=== PATIENT | male | born 1955 | race Caucasian/White ===

== ENCOUNTER 2017-04-05 16:17 | Emergency (ER) | payer MEDICARE, OTHER ==
[~2017-04-05] VITALS: Ht 167.6 cm; Wt 98.0 kg
[~2017-04-05 16:17] MED LIST: AMLODIPINE BESY10 MG PO; ASPIR-LOW81 MG PO; ATORVASTATIN CA80 MG PO; CLOPIDOGREL75 MG PO; FENOFIBRATE134 MG PO; HUMULIN 70100 UNIT/1 SUB-Q; HYDRALAZINE HC100 MG PO; HYDROCHLOROTH12.5 MG PO; LEVOTHYROXINE50 MCG PO; LISINOPRIL40 MG PO; METOPROLOL TAR100 MG PO; QVAR7.3 G1 INH; SPIRONOLACTONE25 MG PO
--- NOTE | 2017-04-05 20:38 | EKG ---
[facility] [address] [place], [place] [address] Signed Sinus rhythm with marked sinus arrhythmia ST \T\ T wave abnormality, consider inferolateral ischemia Abnormal ECG No previous ECGs available Confirmed by JEANNETTE HENRY MD ([id number]) on 04/05/2017 8:38:07 PM Electronically Signed By: JEANNETTE HENRY MD 04/05/17 2038 PATIENT NAME: NAZARIO BROWN BRANDON Electrocardiogram DATE OF : 55 PHYSICIAN: JEANNETTE HENRY MD REPORT #: [id number] REPORT IS CONFIDENTIAL AND NOT TO BE RELEASED WITHOUT AUTHORIZATION
== END 2017-04-05 18:23 | disposition home or self-care (01) ==
LOC: ED 16:17
DX: R53.1 Weakness (principal); I13.0 Hypertensive heart and chronic kidney disease with heart failure and stage 1 through stage 4 chronic kidney disease, or unspecified chronic kidney disease; E11.22 Type 2 diabetes mellitus with diabetic chronic kidney disease; N18.9 Chronic kidney disease, unspecified; I50.9 Heart failure, unspecified; J44.9 Chronic obstructive pulmonary disease, unspecified; F17.200 Nicotine dependence, unspecified, uncomplicated; Z95.5 Presence of coronary angioplasty implant and graft; Z79.899 Other long term (current) drug therapy; Z79.82 Long term (current) 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
CPT/HCPCS: 71020; 80053; 81001; 83880; 84484; 85025; 93005; 93010; 99284

== ENCOUNTER 2017-06-09 12:53 | Emergency (ER) | payer MEDICARE, OTHER ==
[~2017-06-09] VITALS: Ht 167.6 cm; Wt 98.0 kg
[2017-06-09] MEDS ORDERED: ATIVAN1 MG PO (14:29)
--- NOTE | 2017-06-09 21:05 | EKG ---
[facility] [address] [facility] [place] [address] Signed Normal sinus rhythm T wave abnormality, consider inferolateral ischemia , old Abnormal ECG When compared with ECG of 05-APR-2017 16:25, Vent. rate has decreased BY 33 BPM Non-specific change in ST segment in Lateral leads T wave inversion less evident in Lateral leads Confirmed by JEANNETTE HENRY MD ([id number]) on 06/09/2017 9:04:48 PM Electronically Signed By: JEANNETTE HENRY MD 06/09/17 2105 PATIENT NAME: NAZARIO BROWN Electrocardiogram DATE OF : 55 PHYSICIAN: JEANNETTE HENRY MD REPORT #: [id number] REPORT IS CONFIDENTIAL AND NOT TO BE RELEASED WITHOUT AUTHORIZATION
== END 2017-06-09 14:43 | disposition home or self-care (01) ==
LOC: ED 12:53
DX: F43.9 Reaction to severe stress, unspecified (principal); E11.9 Type 2 diabetes mellitus without complications; I11.0 Hypertensive heart disease with heart failure; I50.9 Heart failure, unspecified; J44.9 Chronic obstructive pulmonary disease, unspecified; F17.200 Nicotine dependence, unspecified, uncomplicated; Z95.5 Presence of coronary angioplasty implant and graft; Z79.82 Long term (current) 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; Z79.899 Other long term (current) drug therapy; Z79.4 Long term (current) use of insulin
CPT/HCPCS: 80053; 81001; 84484; 85025; 99284

== ENCOUNTER 2017-06-13 22:30 | Emergency (ER) | payer MEDICARE, OTHER ==
[~2017-06-13] VITALS: Ht 167.6 cm; Wt 105.2 kg
[~2017-06-13 22:30] MED LIST changes: +ATIVAN1 MG PO
== END 2017-06-14 00:28 | disposition home or self-care (01) ==
LOC: ED 22:30
DX: J20.9 Acute bronchitis, unspecified (principal); E11.9 Type 2 diabetes mellitus without complications; I11.0 Hypertensive heart disease with heart failure; I50.9 Heart failure, unspecified; J44.9 Chronic obstructive pulmonary disease, unspecified; J45.909 Unspecified asthma, uncomplicated; F41.9 Anxiety disorder, unspecified; F17.200 Nicotine dependence, unspecified, uncomplicated; Z95.5 Presence of coronary angioplasty implant and graft; Z87.01 Personal history of pneumonia (recurrent); Z79.899 Other long term (current) drug therapy; Z79.82 Long term (current) 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
CPT/HCPCS: 71010; 80053; 83735; 83880; 84484; 85025; 94640; 99284

== ENCOUNTER 2017-08-12 12:00 | Emergency (ER) | payer MEDICARE, OTHER ==
[~2017-08-12] VITALS: Ht 167.6 cm; Wt 102.1 kg
== END 2017-08-12 12:23 | disposition home or self-care (01) ==
LOC: ED 12:00
DX: S99.921A Unspecified injury of right foot, initial encounter (principal); Z00.8 Encounter for other general examination; X58.XXXA Exposure to other specified factors, initial encounter

== ENCOUNTER 2017-08-21 01:13 | Emergency (ER) | payer MEDICARE, OTHER ==
[~2017-08-21] VITALS: Ht 167.6 cm; Wt 102.1 kg
== END 2017-08-21 02:26 | disposition home or self-care (01) ==
LOC: ED 01:13
DX: G47.00 Insomnia, unspecified (principal); I11.0 Hypertensive heart disease with heart failure; I50.9 Heart failure, unspecified; E11.9 Type 2 diabetes mellitus without complications; J44.9 Chronic obstructive pulmonary disease, unspecified; F41.9 Anxiety disorder, unspecified; Z95.818 Presence of other cardiac implants and grafts; Z79.82 Long term (current) 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; Z79.4 Long term (current) use of insulin
CPT/HCPCS: 99282

== ENCOUNTER 2018-03-23 21:54 | Emergency (ER) | payer MEDICARE, OTHER ==
[~2018-03-23] VITALS: Ht 167.6 cm; Wt 102.1 kg
[~2018-03-23 21:54] MED LIST changes: +NOVOLIN 70100 UNIT/1
[2018-03-23] MEDS ORDERED: METFORMIN HCL500 MG PO (22:05)
[2018-03-23] MEDS ORDERED: SERTRALINE HCL50 MG PO (22:06)
[2018-03-23] MEDS ORDERED: COMBIVENT RESPIM4 GM INH (22:07)
== END 2018-03-23 23:10 | disposition home or self-care (01) ==
LOC: ED 21:54
DX: J44.1 Chronic obstructive pulmonary disease with (acute) exacerbation (principal); E11.9 Type 2 diabetes mellitus without complications; I11.0 Hypertensive heart disease with heart failure; I50.9 Heart failure, unspecified; F17.200 Nicotine dependence, unspecified, uncomplicated; Z79.4 Long term (current) use of insulin; Z79.899 Other long term (current) drug therapy; Z79.82 Long term (current) 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
CPT/HCPCS: 71046; 80053; 83880; 84484; 85025; 94640; 96374; 99285; J2930

== ENCOUNTER 2018-09-10 14:36 | Emergency (ER) | payer MEDICARE, OTHER ==
[~2018-09-10] VITALS: Ht 167.6 cm; Wt 104.3 kg
[~2018-09-10 14:36] MED LIST changes: +COMBIVENT RESPIM4 GM INH; +METFORMIN HCL500 MG PO; +SERTRALINE HCL50 MG PO
[2018-09-10] MEDS ORDERED: PREDNISONE20 MG PO (16:27)
[2018-09-10] MEDS ORDERED: IPRAT-ALBUT 0.5-3 ML INH (16:27)
== END 2018-09-10 16:44 | disposition home or self-care (01) ==
LOC: ED 14:36
DX: J44.1 Chronic obstructive pulmonary disease with (acute) exacerbation (principal); E11.9 Type 2 diabetes mellitus without complications; I11.0 Hypertensive heart disease with heart failure; I50.9 Heart failure, unspecified; F41.9 Anxiety disorder, unspecified; F17.210 Nicotine dependence, cigarettes, uncomplicated; Z79.4 Long term (current) use of insulin; Z79.899 Other long term (current) drug therapy; Z79.82 Long term (current) 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
CPT/HCPCS: 71046; 94640; 99283-25; 99406; J7512

== ENCOUNTER → 2019-02-25 | Emergency (ER) | payer MEDICARE, OTHER ==
[~2019-02-25] VITALS: Ht 167.6 cm; Wt 104.3 kg
[~2019-02-25] MED LIST changes: +ADVAIR HFA 115-12 GM INH; +IPRAT-ALBUT 0.5-3 ML INH; +PREDNISONE20 MG PO; +TRELEGY ELLIPT1 EACH IH
--- OUTSIDE RECORDS SUMMARY | 2019-02-25 04:14 | XMS ---
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 Care History Medical/Surgical 03/25/2018 [facility] - Patient is currently established with [facility]. If patient is seen in the ED during business hours. Please contact CHWs at [facility] at Ext [phone]. Care Recommendation: This patient has had 5 or more Emergency Department visits in the last 12 months.\T\nbsp; Patient requires education on the scope and purpose of the ED as an acute care provider not a Primary Care Provider and should not be utilized for chronic conditions.\T\nbsp; If patient returns to ED please contact Community Health WorkerLizzie at [phone]. These are guidelines and the provider should exercise clinical judgment when providing care. E.D. VISIT COUNT ( MO.) 3 [facility] TOTAL 3 NOTE: Visits indicate total known visits. ED/UCC VISIT TRACKING (12 MO.) 02/25/2019 04:12 [facility] TYPE: Emergency COMPLAINT: - WEAKNESS/LOW BLOOD SUGAR 09/10/2018 14:36 [facility] [place] TYPE: Emergency COMPLAINT: - SORE THROAT DIAGNOSES: - Nicotine dependence, unspecified, uncomplicated - Type 2 diabetes mellitus without complications - terminal gauger (current) use of insulin - Anxiety disorder, unspecified - Heart failure, unspecified - Chronic obstructive pulmonary disease with (acute) exacerbation - Hypertensive heart disease with heart failure - Acute pharyngitis, unspecified - Nicotine dependence, cigarettes, uncomplicated - Other care home (current) drug therapy - prison (current) 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 03/23/2018 21:55 [facility] [place] TYPE: Emergency COMPLAINT: - WEAKNESS,COLD SYMPTOMS DIAGNOSES: - terminal gauger (current) use of insulin - Heart failure, unspecified - Hypertensive heart disease with heart failure - prison (current) 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 - Weakness - Nicotine dependence, unspecified, uncomplicated - 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
== END ==
LOC: ED 04:11
DX: E11.649 Type 2 diabetes mellitus with hypoglycemia without coma (principal); I11.0 Hypertensive heart disease with heart failure; I50.9 Heart failure, unspecified; J44.9 Chronic obstructive pulmonary disease, unspecified; F41.9 Anxiety disorder, unspecified; F17.200 Nicotine dependence, unspecified, uncomplicated; Z79.899 Other long term (current) drug therapy; Z79.84 Long term (current) use of oral hypoglycemic drugs; Z79.82 Long term (current) 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
CPT/HCPCS: 80053; 81001; 85025; 96361; 96374; 99284-25; J2405; J7040

== ENCOUNTER 2019-11-08 15:34 | Emergency (ER) | payer MEDICARE, OTHER ==
[~2019-11-08] VITALS: Ht 167.6 cm; Wt 105.2 kg
[2019-11-08] MEDS ORDERED: ALBUTEROL2.5 MG/3 M INH (16:46)
== END 2019-11-08 17:01 | disposition home or self-care (01) ==
LOC: ED 15:34
DX: J98.9 Respiratory disorder, unspecified (principal); E11.9 Type 2 diabetes mellitus without complications; I11.0 Hypertensive heart disease with heart failure; I50.9 Heart failure, unspecified; J44.9 Chronic obstructive pulmonary disease, unspecified; F41.9 Anxiety disorder, unspecified; F17.200 Nicotine dependence, unspecified, uncomplicated
CPT/HCPCS: 71046; 87502; 99283-25

== ENCOUNTER 2020-10-08 12:51 | Emergency (ER) | payer MEDICARE, OTHER ==
[~2020-10-08] VITALS: Ht 167.6 cm; Wt 105.2 kg
[~2020-10-08 12:51] MED LIST changes: +ADULT LOW DOSE81 MG PO; +ALBUTEROL2.5 MG/3 M INH; -ASPIR-LOW81 MG PO
[2020-10-08] MEDS ORDERED: HYDROCHLOROTH12.5 MG PO (13:28)
[2020-10-08] MEDS ORDERED: ATORVASTATIN CA40 MG PO (13:29)
[2020-10-08] MEDS ORDERED: LEVOTHYROXINE75 MCG PO (13:29)
[2020-10-08] MEDS ORDERED: METFORMIN HCL1000 MG PO (13:33)
[2020-10-08] MEDS ORDERED: HYDROCODON-ACE1 EA10 PO (14:04)
== END 2020-10-08 14:28 | disposition home or self-care (01) ==
LOC: ED 12:51
DX: S92.414A Nondisplaced fracture of proximal phalanx of right great toe, initial encounter for closed fracture (principal); W22.8XXA Striking against or struck by other objects, initial encounter; E11.9 Type 2 diabetes mellitus without complications; I11.0 Hypertensive heart disease with heart failure; I50.9 Heart failure, unspecified; J44.9 Chronic obstructive pulmonary disease, unspecified; F17.200 Nicotine dependence, unspecified, uncomplicated; Z79.899 Other long term (current) drug therapy; Z79.84 Long term (current) use of oral hypoglycemic drugs
CPT/HCPCS: 73660; 80053; 84550; 85025; 96372; 99283-25; J1885

== ENCOUNTER 2021-03-15 21:48 | Emergency (ER) | payer MEDICARE, OTHER ==
[~2021-03-15] VITALS: Ht 167.6 cm; Wt 104.3 kg
[~2021-03-15 21:48] MED LIST changes: +ATORVASTATIN CA40 MG PO; +HYDROCODON-ACE1 EA10 PO; +LEVOTHYROXINE75 MCG PO; +METFORMIN HCL1000 MG PO
[2021-03-15] MEDS ORDERED: FAMOTIDINE40 MG PO (22:03)
[2021-03-15] MEDS ORDERED: NOVOLIN 70100 UNIT/1 SUB-Q (22:05)
[2021-03-15] MEDS ORDERED: IPRAT-ALBUT 0.5-3 ML INH (23:49)
[2021-03-15] MEDS ORDERED: PREDNISONE20 MG PO (23:49)
--- NOTE | 2021-03-18 08:48 | EKG ---
[facility] [address] [place] [address] Signed Normal sinus rhythm T wave abnormality, consider lateral ischemia Abnormal ECG When compared with ECG of 09-JUN-2017 13:18, T wave inversion more evident in Lateral leads Confirmed by JEANNETTE HENRY MD ([id number]) on 03/18/2021 8:47:47 AM Electronically Signed By: JEANNETTE HENRY MD 03/18/21 0848 PATIENT NAME: NAZARIO BROWN BRANDON Electrocardiogram DATE OF : 55 PHYSICIAN: JEANNETTE HENRY MD REPORT #: [id number] REPORT IS CONFIDENTIAL AND NOT TO BE RELEASED WITHOUT AUTHORIZATION
== END 2021-03-15 23:57 | disposition home or self-care (01) ==
LOC: ED 21:48
DX: J44.0 Chronic obstructive pulmonary disease with (acute) lower respiratory infection (principal); J20.9 Acute bronchitis, unspecified; I11.0 Hypertensive heart disease with heart failure; I50.9 Heart failure, unspecified; E11.9 Type 2 diabetes mellitus without complications; F17.200 Nicotine dependence, unspecified, uncomplicated; Z79.899 Other long term (current) drug therapy; Z79.4 Long term (current) use of insulin; Z79.82 Long term (current) 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
CPT/HCPCS: 71045; 80053; 83735; 84484; 85025; 93005; 93010; 94640; 96374; 99285-25; J2930

== ENCOUNTER 2021-03-30 15:53 | Emergency (ER) | payer MEDICARE, OTHER ==
[~2021-03-30] VITALS: Ht 167.6 cm; Wt 104.3 kg
[~2021-03-30 15:53] MED LIST changes: +FAMOTIDINE40 MG PO; +NOVOLIN 70100 UNIT/1 SUB-Q
--- OUTSIDE RECORDS SUMMARY | 2021-03-30 16:00 | XMS ---
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 Care History Medical/Surgical 03/25/2018 [facility] - Patient is currently established with [facility]. If patient is seen in the ED during business hours. Please contact CHWs at [facility] at [phone]. Care Recommendation: This patient has had 5 or more Emergency Department visits in the last 12 months.\T\nbsp; Patient requires education on the scope and purpose of the ED as an acute care provider not a Primary Care Provider and should not be utilized for chronic conditions.\T\nbsp; If patient returns to ED please contact Community Health WorkerLizzie at [phone]. These are guidelines and the provider should exercise clinical judgment when providing care. E.D. VISIT COUNT (12 MO.) 3 [facility] TOTAL 3 NOTE: Visits indicate total known visits. 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
[2021-03-30] MEDS ORDERED: PREDNISONE20 MG PO (18:49)
[2021-03-30] MEDS ORDERED: HYDROCODON-ACE1 EA10 PO (18:49)
== END 2021-03-30 19:10 | disposition home or self-care (01) ==
LOC: ED 15:53
DX: M10.9 Gout, unspecified (principal); I10 Essential (primary) hypertension; I50.9 Heart failure, unspecified; E11.9 Type 2 diabetes mellitus without complications; J44.9 Chronic obstructive pulmonary disease, unspecified; F17.200 Nicotine dependence, unspecified, uncomplicated; Z79.899 Other long term (current) drug therapy; Z79.52 Long term (current) use of systemic steroids; Z79.84 Long term (current) use of oral hypoglycemic drugs
CPT/HCPCS: 99283; J7512

== ENCOUNTER 2021-09-20 02:14 | Emergency (ER) | payer MEDICARE, OTHER ==
[~2021-09-20] VITALS: Ht 167.6 cm; Wt 104.3 kg
[2021-09-20] MEDS ORDERED: PREDNISONE20 MG PO (06:34)
--- NOTE | 2021-09-20 22:00 | EKG ---
[facility] [address] [facility] [place] [address] Signed Normal sinus rhythm T wave abnormality, consider lateral ischemia Abnormal ECG When compared with ECG of 15-MAR-2021 22:01, T wave inversion less evident in Lateral leads Confirmed by JOSELITO RODRIGES DO ([id number]) on 09/20/2021 10:00:07 PM Electronically Signed By: JOSELITO RODRIGES DO 09/20/212199 PATIENT NAME: STEPHANIENAZARIO BRANDON Electrocardiogram DATE OF : 55 PHYSICIAN: JOSELITO RODRIGES DO REPORT #: [id number] REPORT IS CONFIDENTIAL AND NOT TO BE RELEASED WITHOUT AUTHORIZATION
== END 2021-09-20 07:13 | disposition home or self-care (01) ==
LOC: ED 02:14
DX: U07.1 COVID-19 (principal); Z23 Encounter for immunization; I11.0 Hypertensive heart disease with heart failure; I50.9 Heart failure, unspecified; E11.9 Type 2 diabetes mellitus without complications; J45.909 Unspecified asthma, uncomplicated; J44.9 Chronic obstructive pulmonary disease, unspecified; F17.200 Nicotine dependence, unspecified, uncomplicated; Z79.899 Other long term (current) drug therapy; Z79.52 Long term (current) use of systemic steroids; Z79.4 Long term (current) use of insulin; Z79.82 Long term (current) 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
CPT/HCPCS: 71045; 80048; 83880; 84484; 85025; 93005; 93010; 94640; 96374; 99285-25; C9803; J1100; M0243; Q0244; U0003

== ENCOUNTER 2022-01-07 01:42 | Emergency (ER) | payer MEDICARE, OTHER ==
[~2022-01-07] VITALS: Ht 167.6 cm; Wt 104.3 kg
[2022-01-07] MEDS ORDERED: ALBUTEROL2.5 MG/3 M INH (03:42)
[2022-01-07] MEDS ORDERED: VENTOLIN HFA18 GM INH (03:42)
[2022-01-07] MEDS ORDERED: PREDNISONE20 MG PO (03:42)
--- NOTE | 2022-01-07 06:24 | EKG ---
[facility] [address] [facility] [facility] [place] [address] Signed Normal sinus rhythm T wave abnormality, consider lateral ischemia Abnormal ECG When compared with ECG of 20-SEP-2021 02:38, T wave inversion more evident in Lateral leads Confirmed by LUIS MIGUEL PINO MD ([id number]) on 01/07/2022 6:24:31 AM Electronically Signed By: LUIS MIGUEL PINO MD 01/07/22 0624 PATIENT NAME: NAZARIO BROWN BRANDON Electrocardiogram DATE OF : 55 PHYSICIAN: LUIS MIGUEL PINO MD REPORT #: [id number] REPORT IS CONFIDENTIAL AND NOT TO BE RELEASED WITHOUT AUTHORIZATION
== END 2022-01-07 03:50 | disposition left against medical advice (07) ==
LOC: ED 01:42
DX: J06.9 Acute upper respiratory infection, unspecified (principal); J44.1 Chronic obstructive pulmonary disease with (acute) exacerbation; E11.9 Type 2 diabetes mellitus without complications; I50.9 Heart failure, unspecified; I11.0 Hypertensive heart disease with heart failure; J45.909 Unspecified asthma, uncomplicated
CPT/HCPCS: 36415; 71045; 80048; 83880; 84484; 85025; 87502; 93005; 93010; 94644; 96374; 99285-25; J2930; U0003

== ENCOUNTER 2022-09-13 11:09 | Emergency (ER) | payer MEDICARE, OTHER ==
[~2022-09-13] VITALS: Ht 167.6 cm; Wt 102.1 kg
[~2022-09-13 11:09] MED LIST changes: +SYMBICORT 80-10.2 GM INH; +VENTOLIN HFA18 GM INH; +ZANTAC-360 (FAM20 MG PO; +ZOLOFT50 MG PO
[2022-09-13] MEDS ORDERED: DOXYCYCLINE HY100 MG PO (14:21)
[2022-09-13] MEDS ORDERED: COLCHICINE0.6 M1 PO (14:21)
== END 2022-09-13 14:50 | disposition home or self-care (01) ==
LOC: ED 11:09
DX: M10.9 Gout, unspecified (principal); E11.9 Type 2 diabetes mellitus without complications; Z95.5 Presence of coronary angioplasty implant and graft; I50.9 Heart failure, unspecified; I11.0 Hypertensive heart disease with heart failure; J44.9 Chronic obstructive pulmonary disease, unspecified; F17.200 Nicotine dependence, unspecified, uncomplicated; Z79.899 Other long term (current) drug therapy; Z79.4 Long term (current) use of insulin; Z79.82 Long term (current) 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
CPT/HCPCS: 36415; 73630; 80053; 85025; 99283-25

== ENCOUNTER 2022-10-11 23:50 | Emergency (ER) | payer MEDICARE, OTHER ==
[~2022-10-11] VITALS: Ht 167.6 cm; Wt 106.7 kg
[~2022-10-11 23:50] MED LIST changes: +COLCHICINE0.6 M1 PO; +DOXYCYCLINE HY100 MG PO
--- OUTSIDE RECORDS SUMMARY | 2022-10-11 23:59 | XMS ---
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 01/07/2022 01:43 - Patient eloped before treatment completed. - Patient with suicidal and/or homicidal ideations eloped. - Patient eloped with IV in place. Details: PATIENT LEFT AMA CRITERIA MET - [facility] - 2 Visits in 30 Days CARE PROVIDERS GILMA HARRISON Internal Medicine 03/31/2021-Current PHONE: Unknown Damian has no Care Guidelines for this patient. Care History Medical/Surgical 03/25/2018 [facility] - Patient is currently established with [facility]. If patient is seen in the ED during business hours. Please contact CHWs at [facility] at Ext [phone]. Care Recommendation: This patient has had 5 or more Emergency Department visits in the last 12 months.\T\nbsp; Patient requires education on the scope and purpose of the ED as an acute care provider not a Primary Care Provider and should not be utilized for chronic conditions.\T\nbsp; If patient returns to ED please contact Community Health WorkerLizzie at [phone]. These are guidelines and the provider should exercise clinical judgment when providing care. E.D. VISIT COUNT (12 MO.) 3 [facility] TOTAL 3 NOTE: Visits indicate total known visits. 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 - Chronic obstructive pulmonary disease, unspecified - Heart failure, unspecified 01/07/2022 01:43 [facility] [place] TYPE: Emergency COMPLAINT: - SHORTNESS OF BREATH DIAGNOSES: - Unspecified asthma, uncomplicated - Acute upper respiratory infection, unspecified - Chronic obstructive pulmonary disease with (acute) exacerbation - Heart failure, unspecified - Type 2 diabetes mellitus without complications - Cough, unspecified - Hypertensive heart disease with heart failure - Contact with and (suspected) exposure to COVID-19 INPATIENT VISIT TRACKING (12 MO.) No inpatient visits to display in this time frame [email or web address]
[2022-10-12] MEDS ORDERED: LASIX20 MG PO (00:24)
[2022-10-12] MEDS ORDERED: IPRAT-ALBUT 0.5-3 ML INH (00:24)
[2022-10-12] MEDS ORDERED: TRAZODONE HCL100 MG PO (00:24)
== END 2022-10-12 00:47 | disposition home or self-care (01) ==
LOC: ED 23:50
DX: G47.00 Insomnia, unspecified (principal); I11.0 Hypertensive heart disease with heart failure; I50.9 Heart failure, unspecified; E11.9 Type 2 diabetes mellitus without complications; J44.9 Chronic obstructive pulmonary disease, unspecified; F17.200 Nicotine dependence, unspecified, uncomplicated; Z79.899 Other long term (current) drug therapy; Z79.4 Long term (current) use of insulin; Z79.82 Long term (current) 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
CPT/HCPCS: 71045; 99283-25

== ENCOUNTER 2023-05-16 12:29 | Emergency (ER) | payer MEDICARE, OTHER ==
[~2023-05-16] VITALS: Ht 167.6 cm; Wt 106.7 kg
--- OUTSIDE RECORDS SUMMARY | ~2023-05-16 | XMS | Continuity of Care Document ---
Demographics + + + | Address | [address] [facility] [address] | | | [place] [address] | + + + | Preferred Language | Unknown | + + + | Marital Status | | + + + | Roman Catholic Affiliation | Unknown | + + + | Race | White | + + + | Ethnic Group | Not or | + + + Author + + + | Author | [facility] | + + + | Organization | [facility] | + + + | Address | [address] | | | [place] [address] | + + + | Phone | | + + + Care Team Providers + + + + | Care Marketing And Outreach Coordinator Name | Role | Phone | + + + + Unavailable | Unavailable | + + + + Unavailable | Unavailable | + + + + Unavailable | Unavailable | + + + + Unavailable | Unavailable | + + + + Unavailable | Unavailable | + + + + Allergies No information. Encounters No information. Functional Status No information. Immunizations + + + + | date | description | facility | + + + + | 2022-09-13 00:00 | No vaccine administered | [facility] | + + + + | 2022-10-12 00:00 | No vaccine administered | [facility] | + + + + Medications + + + + | date | description | facility | + + + + | 2017-06-09 00:00 | LORAZEPAM | [facility] | + + + + | 2017-06-09 00:00 | LORAZEPAM | [facility] | + + + + | 2017-06-09 00:00 | lorazepam 1 MG Oral Tablet | [facility] | | | [Ativan] | | + + + + | 2022-09-13 00:00 | HUM INSULIN NPH/REG | [facility] | | | INSULIN HM | | + + + + | 2022-10-12 00:00 | HUM INSULIN NPH/REG | [facility] | | | INSULIN HM | | + + + + | 2022-09-13 00:00 | insulin isophane, human 70 | [facility] | | | UNT/ML / insulin, regular, | | | | human | | + + + + | 2022-10-12 00:00 | insulin isophane, human 70 | [facility] | | | UNT/ML / insulin, regular, | | | | human | | + + + + | 2022-09-13 00:00 | 120 ACTUAT albuterol 0.1 | [facility] | | | MG/ACTUAT / ipratropium | | | | bromide 0.0 | | + + + + | 2022-10-12 00:00 | 120 ACTUAT albuterol 0.1 | [facility] | | | MG/ACTUAT / ipratropium | | | | bromide 0.0 | | + + + + | 2022-09-13 00:00 | IPRATROPIUM/ALBUTEROL | [facility] | | | SULFATE | | + + + + | 2022-10-12 00:00 | IPRATROPIUM/ALBUTEROL | [facility] | | | SULFATE | | + + + + | 2022-09-13 00:00 | 120 ACTUAT budesonide 0.08 | [facility] | | | MG/ACTUAT / formoterol | | | | fumarate 0 | | + + + + | 2022-10-12 00:00 | 120 ACTUAT budesonide 0.08 | [facility] | | | MG/ACTUAT / formoterol | | | | fumarate 0 | | + + + + | 2022-09-13 00:00 | BUDESONIDE/FORMOTEROL | [facility] | | | FUMARATE | | + + + + | 2022-10-12 00:00 | BUDESONIDE/FORMOTEROL | [facility] | | | FUMARATE | | + + + + | 2018-09-10 00:00 | IPRATROPIUM/ALBUTEROL | [facility] | | | SULFATE | | + + + + | 2018-09-10 00:00 | IPRATROPIUM/ALBUTEROL | [facility] | | | SULFATE | | + + + + | 2022-10-12 00:00 | IPRATROPIUM/ALBUTEROL | [facility] | | | SULFATE | | + + + + | 2018-09-10 00:00 | albuterol 0.833 MG/ML / | [facility] | | | ipratropium bromide 0.167 | | | | MG/ML Inha | | + + + + | 2022-10-12 00:00 | albuterol 0.833 MG/ML / | [facility] | | | ipratropium bromide 0.167 | | | | MG/ML Inha | | + + + + | 2022-09-13 00:00 | COLCHICINE | [facility] | + + + + | 2022-09-13 00:00 | colchicine 0.6 MG Oral | [facility] | | | Capsule | | + + + + | 2022-09-13 00:00 | DOXYCYCLINE HYCLATE | [facility] | + + + + | 2022-09-13 00:00 | doxycycline hyclate 100 MG | [facility] | | | Oral Capsule | | + + + + | 2022-09-13 00:00 | 30 ACTUAT fluticasone | [facility] | | | furoate 0.1 MG/ACTUAT / | | | | umeclidinium 0 | | + + + + | 2022-10-12 00:00 | 30 ACTUAT fluticasone | [facility] | | | furoate 0.1 MG/ACTUAT / | | | | umeclidinium 0 | | + + + + | 2022-09-13 00:00 | | [facility] | | | Fluticasone/Umeclidin/Vilan | | | | ter | | + + + + | 2022-10-12 00:00 | | [facility] | | | Fluticasone/Umeclidin/Vilan | | | | ter | | + + + + | 2022-09-13 00:00 | LISINOPRIL | [facility] | + + + + | 2022-10-12 00:00 | LISINOPRIL | [facility] | + + + + | 2022-09-13 00:00 | lisinopril 40 MG Oral | [facility] | | | Tablet | | + + + + | 2022-10-12 00:00 | lisinopril 40 MG Oral | [facility] | | | Tablet | | + + + + | 2022-10-12 00:00 | FUROSEMIDE | [facility] | + + + + | 2022-10-12 00:00 | furosemide 20 MG Oral | [facility] | | | Tablet [Lasix] | | + + + + | 2022-09-13 00:00 | Insulin NPH Hum/Reg | [facility] | | | Insulin Hm | | + + + + | 2022-10-12 00:00 | Insulin NPH Hum/Reg | [facility] | | | Insulin Hm | | + + + + | 2022-09-13 00:00 | insulin isophane, human 70 | [facility] | | | UNT/ML / insulin, regular, | | | | human | | + + + + | 2022-10-12 00:00 | insulin isophane, human 70 | [facility] | | | UNT/ML / insulin, regular, | | | | human | | + + + + | 2022-09-13 00:00 | ATORVASTATIN CALCIUM | [facility] | + + + + | 2022-10-12 00:00 | ATORVASTATIN CALCIUM | [facility] | + + + + | 2022-09-13 00:00 | atorvastatin 80 MG Oral | [facility] | | | Tablet | | + + + + | 2022-10-12 00:00 | atorvastatin 80 MG Oral | [facility] | | | Tablet | | + + + + | 2022-09-13 00:00 | AMLODIPINE BESYLATE | [facility] | + + + + | 2022-10-12 00:00 | AMLODIPINE BESYLATE | [facility] | + + + + | 2022-09-13 00:00 | amlodipine 10 MG Oral | [facility] | | | Tablet | | + + + + | 2022-10-12 00:00 | amlodipine 10 MG Oral | [facility] | | | Tablet | | + + + + | 2022-09-13 00:00 | ASPIRIN | [facility] | + + + + | 2022-10-12 00:00 | ASPIRIN | [facility] | + + + + | 2022-09-13 00:00 | aspirin 81 MG Delayed | [facility] | | | Release Oral Tablet | | + + + + | 2022-10-12 00:00 | aspirin 81 MG Delayed | [facility] | | | Release Oral Tablet | | + + + + | 2022-09-13 00:00 | CLOPIDOGREL BISULFATE | [facility] | + + + + | 2022-10-12 00:00 | CLOPIDOGREL BISULFATE | [facility] | + + + + | 2022-09-13 00:00 | clopidogrel 75 MG Oral | [facility] | | | Tablet | | + + + + | 2022-10-12 00:00 | clopidogrel 75 MG Oral | [facility] | | | Tablet | | + + + + | 2022-09-13 00:00 | Famotidine | [facility] | + + + + | 2022-10-12 00:00 | Famotidine | [facility] | + + + + | 2022-09-13 00:00 | famotidine 20 MG Oral | [facility] | | | Tablet | | + + + + | 2022-10-12 00:00 | famotidine 20 MG Oral | [facility] | | | Tablet | | + + + + | 2022-09-13 00:00 | FENOFIBRATE,MICRONIZED | [facility] | + + + + | 2022-10-12 00:00 | FENOFIBRATE,MICRONIZED | [facility] | + + + + | 2022-09-13 00:00 | fenofibrate 134 MG Oral | [facility] | | | Capsule | | + + + + | 2022-10-12 00:00 | fenofibrate 134 MG Oral | [facility] | | | Capsule | | + + + + | 2018-09-10 00:00 | predniSONE | [facility] | + + + + | 2018-09-10 00:00 | predniSONE | [facility] | + + + + | 2018-09-10 00:00 | prednisone 20 MG Oral | [facility] | | | Tablet | | + + + + | 2022-09-13 00:00 | SERTRALINE HCL | [facility] | + + + + | 2022-10-12 00:00 | SERTRALINE HCL | [facility] | + + + + | 2022-09-13 00:00 | sertraline 50 MG Oral | [facility] | | | Tablet | | + + + + | 2022-10-12 00:00 | sertraline 50 MG Oral | [facility] | | | Tablet | | + + + + | 2022-09-13 00:00 | HYDROCHLOROTHIAZIDE | [facility] | + + + + | 2022-10-12 00:00 | HYDROCHLOROTHIAZIDE | [facility] | + + + + | 2022-09-13 00:00 | hydrochlorothiazide 12.5 | [facility] | | | MG Oral Tablet | | + + + + | 2022-10-12 00:00 | hydrochlorothiazide 12.5 | [facility] | | | MG Oral Tablet | | + + + + | 2022-09-13 00:00 | ATORVASTATIN CALCIUM | [facility] | + + + + | 2022-10-12 00:00 | ATORVASTATIN CALCIUM | [facility] | + + + + | 2022-09-13 00:00 | atorvastatin 40 MG Oral | [facility] | | | Tablet | | + + + + | 2022-10-12 00:00 | atorvastatin 40 MG Oral | [facility] | | | Tablet | | + + + + | 2022-10-12 00:00 | TRAZODONE HCL | [facility] | + + + + | 2022-10-12 00:00 | trazodone hydrochloride | [facility] | | | 100 MG Oral Tablet | | + + + + | 2020-10-08 00:00 | HYDROCODONE | [facility] | | | BIT/ACETAMINOPHEN | | + + + + | 2020-10-08 00:00 | HYDROCODONE | [facility] | | | BIT/ACETAMINOPHEN | | + + + + | 2021-03-30 00:00 | HYDROCODONE | [facility] | | | BIT/ACETAMINOPHEN | | + + + + | 2021-03-30 00:00 | HYDROCODONE | [facility] | | | BIT/ACETAMINOPHEN | | + + + + | 2020-10-08 00:00 | acetaminophen 325 MG / | [facility] | | | hydrocodone bitartrate 5 MG | | | | Oral Tabl | | + + + + | 2021-03-30 00:00 | acetaminophen 325 MG / | [facility] | | | hydrocodone bitartrate 5 MG | | | | Oral Tabl | | + + + + | 2022-09-13 00:00 | METFORMIN HCL | [facility] | + + + + | 2022-10-12 00:00 | METFORMIN HCL | [facility] | + + + + | 2022-09-13 00:00 | metformin hydrochloride | [facility] | | | 1000 MG Oral Tablet | | + + + + | 2022-10-12 00:00 | metformin hydrochloride | [facility] | | | 1000 MG Oral Tablet | | + + + + | 2022-09-13 00:00 | METOPROLOL TARTRATE | [facility] | + + + + | 2022-10-12 00:00 | METOPROLOL TARTRATE | [facility] | + + + + | 2022-09-13 00:00 | metoprolol tartrate 100 MG | [facility] | | | Oral Tablet | | + + + + | 2022-10-12 00:00 | metoprolol tartrate 100 MG | [facility] | | | Oral Tablet | | + + + + | 2022-09-13 00:00 | 120 ACTUAT fluticasone | [facility] | | | propionate 0.115 MG/ACTUAT | | | | / salmeter | | + + + + | 2022-10-12 00:00 | 120 ACTUAT fluticasone | [facility] | | | propionate 0.115 MG/ACTUAT | | | | / salmeter | | + + + + | 2022-09-13 00:00 | FLUTICASONE/SALMETEROL | [facility] | + + + + | 2022-10-12 00:00 | FLUTICASONE/SALMETEROL | [facility] | + + + + | 2022-09-13 00:00 | HYDRALAZINE HCL | [facility] | + + + + | 2022-10-12 00:00 | HYDRALAZINE HCL | [facility] | + + + + | 2022-09-13 00:00 | hydralazine hydrochloride | [facility] | | | 100 MG Oral Tablet | | + + + + | 2022-10-12 00:00 | hydralazine hydrochloride | [facility] | | | 100 MG Oral Tablet | | + + + + | 2022-09-13 00:00 | LEVOTHYROXINE SODIUM | [facility] | + + + + | 2022-10-12 00:00 | LEVOTHYROXINE SODIUM | [facility] | + + + + | 2022-09-13 00:00 | levothyroxine sodium 0.075 | [facility] | | | MG Oral Tablet | | + + + + | 2022-10-12 00:00 | levothyroxine sodium 0.075 | [facility] | | | MG Oral Tablet | | + + + + | 2022-09-13 00:00 | 100 ACTUAT Beclomethasone | [facility] | | | Dipropionate 0.08 MG/ACTUAT | | | | [facility] | | + + + + | 2022-10-12 00:00 | 100 ACTUAT Beclomethasone | [facility] | | | Dipropionate 0.08 MG/ACTUAT | | | | Metere | | + + + + | 2022-09-13 00:00 | BECLOMETHASONE | [facility] | | | DIPROPIONATE | | + + + + | 2022-10-12 00:00 | BECLOMETHASONE | [facility] | | | DIPROPIONATE | | + + + + Problems + + + + | date | description | facility | + + + + | 2017-01-24 00:00 | Renal insufficiency | [facility] | + + + + | 2017-01-24 00:00 | Diabetes | [facility] | + + + + | 2017-01-24 00:00 | Hyperglycemia | [facility] | + + + + | 2017-01-24 00:00 | Diabetes mellitus | [facility] | + + + + | 2017-01-24 00:00 | Diabetes mellitus | [facility] | + + + + | 2017-01-24 00:00 | Renal insufficiency | [facility] | + + + + | 2017-01-24 00:00 | Renal insufficiency | [facility] | + + + + | 2017-01-24 00:00 | Hyperglycemia | [facility] | + + + + | 2017-01-24 00:00 | Hyperglycemia | [facility] | + + + + | 2017-04-05 00:00 | Weakness | [facility] | + + + + | 2017-04-05 00:00 | Chronic renal | [facility] | | | insufficiency | | + + + + | 2017-04-05 00:00 | Chronic renal impairment | [facility] | + + + + | 2017-04-05 00:00 | Chronic renal impairment | [facility] | + + + + | 2017-04-05 00:00 | Weakness | [facility] | + + + + | 2017-04-05 00:00 | Weakness | [facility] | + + + + | 2017-06-09 00:00 | Stress | [facility] | + + + + | 2017-06-09 00:00 | Stress | [facility] | + + + + | 2017-06-09 00:00 | Stress | [facility] | + + + + | 2017-06-14 00:00 | Acute bronchitis | [facility] | + + + + | 2017-06-14 00:00 | Acute bronchitis | [facility] | + + + + | 2017-06-14 00:00 | Acute bronchitis | [facility] | + + + + | 2017-08-12 00:00 | Encounter for medical | [facility] | | | screening examination | | + + + + | 2017-08-12 00:00 | Encounter for medical | [facility] | | | screening examination | | + + + + | 2017-08-12 00:00 | Encounter for medical | [facility] | | | screening examination | | + + + + | 2017-08-21 00:00 | Insomnia disorder | [facility] | + + + + | 2017-08-21 00:00 | Insomnia | [facility] | + + + + | 2017-08-21 00:00 | Insomnia | [facility] | + + + + | 2018-03-23 00:00 | COPD exacerbation | [facility] | + + + + | 2018-03-23 00:00 | Acute exacerbation of | [facility] | | | chronic obstructive | | | | pulmonary disease | | + + + + | 2018-03-23 00:00 | Acute exacerbation of | [facility] | | | chronic obstructive | | | | pulmonary disease | | + + + + | 2019-02-25 00:00 | Hypoglycemia | [facility] | + + + + | 2019-02-25 00:00 | Hypoglycemia | [facility] | + + + + | 2019-02-25 00:00 | Hypoglycemia | [facility] | + + + + | 2019-11-08 00:00 | Viral respiratory illness | [facility] | + + + + | 2019-11-08 00:00 | Viral respiratory | [facility] | | | infection | | + + + + | 2019-11-08 00:00 | Viral respiratory | [facility] | | | infection | | + + + + | 2020-10-08 00:00 | Fracture of great toe | [facility] | + + + + | 2020-10-08 00:00 | Fracture of phalanx of | [facility] | | | great toe | | + + + + | 2020-10-08 00:00 | Fracture of phalanx of | [facility] | | | great toe | | + + + + | 2021-03-15 00:00 | COPD with acute bronchitis | [facility] | | | | | + + + + | 2021-03-15 00:00 | Acute bronchitis with | [facility] | | | chronic obstructive | | | | pulmonary disease (COPD) | | + + + + | 2021-03-15 00:00 | Acute bronchitis with | [facility] | | | chronic obstructive | | | | pulmonary disease (COPD) | | + + + + | 2021-03-30 00:00 | Acute gout of left foot | [facility] | + + + + | 2021-03-30 00:00 | Acute gout of left foot | [facility] | + + + + | 2021-03-30 00:00 | Acute gout of left foot | [facility] | + + + + | 2021-09-20 00:00 | COVID-19 | [facility] | + + + + | 2021-09-20 00:00 | Infection due to severe | [facility] | | | acute respiratory syndrome | | | | coronavirus 2 (SARS-CoV-2) | | + + + + | 2021-09-20 00:00 | Infection due to severe | [facility] | | | acute respiratory syndrome | | | | coronavirus 2 (SARS-CoV-2) | | + + + + | 2022-01-07 00:00 | Hypoxia | [facility] | + + + + | 2022-01-07 00:00 | URI (upper respiratory | [facility] | | | infection) | | + + + + | 2022-01-07 00:00 | Upper respiratory tract | [facility] | | | infection | | + + + + | 2022-01-07 00:00 | Upper respiratory tract | [facility] | | | infection | | + + + + | 2022-01-07 00:00 | Hypoxia | [facility] | + + + + | 2022-01-07 00:00 | Hypoxia | [facility] | + + + + | 2022-01-07 01:43 | Type 2 diabetes mellitus | [facility] | | | without complications [facility] | + + + + | 2022-01-07 01:43 | Hypertensive heart disease | [facility] | | | with heart failure | [facility] | + + + + | 2022-01-07 01:43 | Heart failure, unspecified | [facility] | | | | [facility] | + + + + | 2022-01-07 01:43 | Acute upper respiratory | [facility] | | | infection, unspecified | [facility] | + + + + | 2022-01-07 01:43 | Chronic obstructive | [facility] | | | pulmonary disease with | [facility] | | | (acute) exacerbation | | + + + + | 2022-01-07 01:43 | Unspecified asthma, | [facility] | | | uncomplicated | [facility] | + + + + | 2022-01-07 01:43 | Cough, unspecified | [facility] | | | [facility] | + + + + | 2022-09-13 00:00 | Gout | [facility] | + + + + | 2022-09-13 00:00 | Gout | [facility] | + + + + | 2022-09-13 00:00 | Gout | [facility] | + + + + | 2022-10-12 00:00 | CHF (congestive heart | [facility] | | | failure) | | + + + + | 2022-10-12 00:00 | Congestive heart failure | [facility] | + + + + Procedures No information. Results/Labs +--------+--------+ +---------+--------+---------+ | test | date | facility | value | unit | notes | +--------+--------+ +---------+--------+---------+ + + | Result panel 1 | + + + + + +--------+ + + | Blood | 2022-09-13 | [facility] | 11.3 | (missing) | (missing) | | leukocytes | 13:00 | [facility] | | | | | automated | | Hospital | | | | | count | | | | | | | (number/volu | | | | | | | me) | | | | | | + + + +--------+ + + + + | Result panel 2 | + + + + + +--------+ + + | Automated | 2022-09-13 | [facility] | 75.4 | (missing) | (missing) | | blood | 13:00 | [facility] | | | | | neutrophil | | Hospital | | | | | count as | | | | | | | percentage | | | | | | | of total | | | | | | | leukocytes | | | | | | + + + +--------+ + + + + | Result panel 3 | + + + + + +--------+ + + | Automated | 2022-09-13 | [facility] | 12.6 | (missing) | (missing) | | blood | 13:00 | [facility] | | | | | lymphocyte | | Hospital | | | | | count as | | | | | | | percentage | | | | | | | ot total | | | | | | | leukocytes | | | | | | + + + +--------+ + + + + | Result panel 4 | + + + + + +--------+ + + | Automated | 2022-09-13 | [facility] | 10.7 | (missing) | (missing) | | blood | 13:00 | [facility] | | | | | monocyte | | Hospital | | | | | count as | | | | | | | percentage | | | | | | | of total | | | | | | | leukocytes | | | | | | + + + +--------+ + + + + | Result panel 5 | + + + + + +-------+ + + | Automated | 2022-09-13 | [facility] | 0.3 | (missing) | (missing) | | blood | 13:00 | [facility] | | | | | eosinophil | | Hospital | | | | | count as | | | | | | | percentage | | | | | | | of total | | | | | | | leukocytes | | | | | | + + + +-------+ + + + + | Result panel 6 | + + + + + +-------+ + + | Automated | 2022-09-13 | [facility] | 1.0 | (missing) | (missing) | | blood | 13:00 | [facility] | | | | | basophil | | Hospital | | | | | count as | | | | | | | percentage | | | | | | | of total | | | | | | | leukocytes | | | | | | + + + +-------+ + + + + | Result panel 7 | + + + + + +------+ + + | Serum or | 2022-09-13 | [facility] | 73 | (missing) | (missing) | | plasma | 13:00 | [facility] | | | | | glucose | | Hospital | | | | | measurement | | | | | | | (mass/volume | | | | | | | ) | | | | | | + + + +------+ + + + + | Result panel 8 | + + + + + +------+ + + | Serum or | 2022-09-13 | [facility] | 22 | (missing) | (missing) | | plasma urea | 13:00 | [facility] | | | | | nitrogen | | Hospital | | | | | measurement | | | | | | | (mass/volume | | | | | | | ) | | | | | | + + + +------+ + + + + | Result panel 9 | + + + + + +--------+ + + | Serum or | 2022-09-13 | [facility] | 1.33 | (missing) | (missing) | | plasma | 13:00 | [facility] | | | | | creatinine | | Hospital | | | | | measurement | | | | | | | (mass/volume | | | | | | | ) | | | | | | + + + +--------+ + + + + | Result panel 10 | + + + + + +------+ + + | Glomerular | 2022-09-13 | [facility] | 59 | (missing) | (missing) | | filtration | 13:00 | [facility] | | | | | rate/1.73 sq | | Hospital | | | | | M.predicted | | | | | | | [Volume | | | | | | | Rate/Area] | | | | | | | inSerum, | | | | | | | Plasma or | | | | | | | Blood by | | | | | | | Creatinine-b | | | | | | | ased formula | | | | | | | (CKD-EPI | | | | | | | 2020) | | | | | | + + + +------+ + + + + | Result panel 11 | + + + + + +---------+ + + | Serum or | 2022-09-13 | [facility] | 16.54 | (missing) | (missing) | | plasma urea | 13:00 | [facility] | | | | | nitrogen/cre | | [facility] | | | | | atinine mass | | | | | | | ratio | | | | | | + + + +---------+ + + + + | Result panel 12 | + + + + + +--------+ + + | Blood | 2022-09-13 | [facility] | 4.83 | (missing) | (missing) | | erythrocytes | 13:00 | [facility] | | | | | automated | | [facility] | | | | | count | | | | | | | (number/volu | | | | | | | me) | | | | | | + + + +--------+ + + + + | Result panel 13 | + + + + + +-------+ + + | Serum or | 2022-09-13 | [facility] | 136 | (missing) | (missing) | | plasma | 13:00 | [facility] sodium [facility] | | | | | measurement | | | | | | | (moles/volum | | | | | | | e) | | | | | | + + + +-------+ + + + + | Result panel 14 | + + + + + +-------+ + + | Serum or | 2022-09-13 | [facility] | 4.4 | (missing) | (missing) | | plasma | 13:00 | [facility] potassium | | [facility] | | | | | measurement | | | | | | | (moles/volum | | | | | | | e) | | | | | | + + + +-------+ + + + + | Result panel 15 | + + + + + +-------+ + + | Serum or | 2022-09-13 | [facility] | 104 | (missing) | (missing) | | plasma | 13:00 | [facility] | | | | chloride | | [facility] | | | | | measurement | | | | | | | (moles/volum | | | | | | | e) | | | | | | + + + +-------+ + + + + | Result panel 16 | + + + + + +------+ + + | Serum or | 2022-09-13 | [facility] | 24 | (missing) | (missing) | | plasma | 13:00 | [facility] | | | | | carbon | | [facility] | | | | | dioxide, | | | | | | | total | | | | | | | measurement | | | | | | | (moles/volum | | | | | | | e) | | | | | | + + + +------+ + + + + | Result panel 17 | + + + + + +--------+ + + | Serum or | 2022-09-13 | [facility] | 12.4 | (missing) | (missing) | | plasma anion | 13:00 | [facility] | | | | gap 4 | | [facility] | | | | + + + +--------+ + + + + | Result panel 18 | + + + + + +-------+ + + | Serum or | 2022-09-13 | [facility] | 9.0 | (missing) | (missing) | | plasma | 13:00 | [facility] | | | | calcium | | [facility] | | | | | measurement | | | | | | | (mass/volume | | | | | | | ) | | | | | | + + + +-------+ + + + + | Result panel 19 | + + + + + +-------+ + + | Serum or | 2022-09-13 | [facility] | 7.6 | (missing) | (missing) | | plasma | 13:00 | [facility] | | | | protein | | [facility] | | | | | measurement | | | | | | | (mass/volume | | | | | | | ) | | | | | | + + + +-------+ + + + + | Result panel 20 | + + + + + +-------+ + + | Serum or | 2022-09-13 | [facility] | 3.4 | (missing) | (missing) | | plasma | 13:00 | [facility] | | | | albumin | | [facility] | | | | | measurement | | | | | | | (mass/volume | | | | | | | ) | | | | | | + + + +-------+ + + + + | Result panel 21 | + + + + + +-------+ + + | Serum | 2022-09-13 | [facility] | 4.2 | (missing) | (missing) | | globulin | 13:00 | [facility] measurement | | [facility] | | | | | (mass/volume | | | | | | | ) | | | | | | + + + +-------+ + + + + | Result panel 22 | + + + + + +--------+ + + | Serum or | 2022-09-13 | [facility] | 0.81 | (missing) | (missing) | | plasma | 13:00 | [facility] | | | | albumin/glob | | [facility] | | | | | ulin mass | | | | | | | ratio | | | | | | + + + +--------+ + + + + | Result panel 23 | + + + + + +--------+ + + | Blood | 2022-09-13 | [facility] | 12.1 | (missing) | (missing) | | hemoglobin | 13:00 | [facility] measurement | | [facility] | | | | | (mass/volume | | | | | | | ) | | | | | | + + + +--------+ + + + + | Result panel 24 | + + + + + +-------+ + + | Serum or | 2022-09-13 | [facility] | 0.4 | (missing) | (missing) | | plasma total | 13:00 | [facility] | | | | bilirubin | | [facility] | | | | | measurement | | | | | | | (mass/volume | | | | | | | ) | | | | | | + + + +-------+ + + + + | Result panel 25 | + + + + + +------+ + + | Serum or | 2022-09-13 | [facility] | 11 | (missing) | (missing) | | plasma | 13:00 | [facility] | | | | | aspartate | | [facility] | | | | | aminotransfe | | | | | | | rase | | | | | | | measurement | | | | | | | (enzymatic | | | | | | | activity/vol | | | | | | | ume) | | | | | | + + + +------+ + + + + | Result panel 26 | + + + + + +------+ + + | Serum or | 2022-09-13 | [facility] | 15 | (missing) | (missing) | | plasma | 13:00 | [facility] | | | | alanine | | [facility] | | | | | aminotransfe | | | | | | | rase | | | | | | | measurement | | | | | | | (enzymatic | | | | | | | activity/vol | | | | | | | ume) | | | | | | + + + +------+ + + + + | Result panel 27 | + + + + + +------+ + + | Serum or | 2022-09-13 | [facility] | 94 | (missing) | (missing) | | plasma | 13:00 | [facility] | | | | alkaline | | [facility] | | | | | phosphatase | | | | | | | measurement | | | | | | | (enzymatic | | | | | | | activity/vol | | | | | | | ume) | | | | | | + + + +------+ + + + + | Result panel 28 | + + + + + +--------+ + + | Automated | 2022-09-13 | [facility] | 38.8 | (missing) | (missing) | | blood | 13:00 | [facility] | | | | hematocrit | | [facility] | | | | + + + +--------+ + + + + | Result panel 29 | + + + + + +--------+ + + | Automated | 2022-09-13 | [facility] | 80.3 | (missing) | (missing) | | erythrocyte | 13:00 | [facility] | | | | mean | | [facility] | | | | | corpuscular | | | | | | | volume | | | | | | + + + +--------+ + + + + | Result panel 30 | + + + + + +--------+ + + | Automated | 2022-09-13 | [facility] | 25.1 | (missing) | (missing) | | erythrocyte | 13:00 | [facility] | | | | mean | | [facility] | | | | | corpuscular | | | | | | | hemoglobin | | | | | | | (mass per | | | | | | | erythrocyte) | | | | | | | | | | | | | + + + +--------+ + + + + | Result panel 31 | + + + + + +--------+ + + | Automated | 2022-09-13 | [facility] | 31.3 | (missing) | (missing) | | erythrocyte | 13:00 | [facility] | | | | mean | | [facility] | | | | | corpuscular | | | | | | | hemoglobin | | | | | | | concentratio | | | | | | | n | | | | | | | measurement | | | | | | | (mass/volume | | | | | | | ) | | | | | | + + + +--------+ + + + + | Result panel 32 | + + + + + +--------+ + + | Automated | 2022-09-13 | [facility] | 16.7 | (missing) | (missing) | | erythrocyte | 13:00 | [facility] | | | | distribution | | [facility] | | | | | width | | | | | | + + + +--------+ + + + + | Result panel 33 | + + + + + +-------+ + + | Automated | 2022-09-13 | [facility] | 217 | (missing) | (missing) | | blood | 13:00 | [facility] | | | | platelet | | [facility] | | | | | count | | | | | | | (count/volum | | | | | | | e) | | | | | | + + + +-------+ + + + + | Result panel 34 | + + + + + +--------+ + + | | 2022-09-13 | [facility] | 11.3 | (missing) | (missing) | | (unavailable | 13:00:08 | [facility] | | | | + + + +--------+ + + + + | Result panel 35 | + + + + + +--------+ + + | | 2022-09-13 | [facility] | 4.83 | (missing) | (missing) | | (unavailable | 13:00:08 | [facility] | | | | + + + +--------+ + + + + | Result panel 36 | + + + + + +--------+ + + | | 2022-09-13 | [facility] | 12.1 | (missing) | (missing) | | (unavailable | 13::08 | [facility] | | | | + + + +--------+ + + + + | Result panel 37 | + + + + + +--------+ + + | | 2022-09-13 | [facility] | 38.8 | (missing) | (missing) | | (unavailable | 13:00:08 | [facility] | | | | + + + +--------+ + + + + | Result panel 38 | + + + + + +--------+ + + | | 2022-09-13 | [facility] | 80.3 | (missing) | (missing) | | (unavailable | 13:00:08 | [facility] | | | | + + + +--------+ + + + + | Result panel 39 | + + + + + +--------+ + + | | 2022-09-13 | [facility] | 25.1 | (missing) | (missing) | | (unavailable | 13:00:08 | [facility] | | | | + + + +--------+ + + + + | Result panel 40 | + + + + + +--------+ + + | | 2022-09-13 | [facility] | 31.3 | (missing) | (missing) | | (unavailable | 13:00:08 | [facility] | | | | + + + +--------+ + + + + | Result panel 41 | + + + + + +--------+ + + | | 2022-09-13 | [facility] | 16.7 | (missing) | (missing) | | (unavailable | 13:00:08 | [facility] | | | | + + + +--------+ + + + + | Result panel 42 | + + + + + +-------+ + + | | 2022-09-13 | [facility] | 217 | (missing) | (missing) | | (unavailable | 13:00:08 | [facility] | | | | + + + +-------+ + + + + | Result panel 43 | + + + + + +--------+ + + | | 2022-09-13 | [facility] | 75.4 | (missing) | (missing) | | (unavailable | 13:00:08 | [facility] | | | | + + + +--------+ + + + + | Result panel 44 | + + + + + +--------+ + + | | 2022-09-13 | [facility] | 12.6 | (missing) | (missing) | | (unavailable | 13:00:08 | [facility] | | | | + + + +--------+ + + + + | Result panel 45 | + + + + + +--------+ + + | | 2022-09-13 | [facility] | 10.7 | (missing) | (missing) | | (unavailable | 13:00:08 | [facility] | | | | + + + +--------+ + + + + | Result panel 46 | + + + + + +-------+ + + | | 2022-09-13 | [facility] | 0.3 | (missing) | (missing) | | (unavailable | 13:00:08 | [facility] | | | | + + + +-------+ + + + + | Result panel 47 | + + + + + +-------+ + + | | 2022-09-13 | [facility] | 1.0 | (missing) | (missing) | | (unavailable | 13:00:08 | [facility] | | | | + + + +-------+ + + + + | Result panel 48 | + + + + + +------+---------+ + | | 2022-09-13 | [facility] | 73 | mg/dL | (missing) | | (unavailable | 13::08 | [facility] | | | | + + + +------+---------+ + + + | Result panel 49 | + + + + + +------+---------+ + | | 2022-09-13 | [facility] | 22 | mg/dL | (missing) | | (unavailable | 13:00:08 | [facility] | | | | + + + +------+---------+ + + + | Result panel 50 | + + + + + +--------+---------+ + | | 2022-09-13 | [facility] | 1.33 | mg/dL | (missing) | | (unavailable | 13:00:08 | [facility] | | | | + + + +--------+---------+ + + + | Result panel 51 | + + + + + +------+ + + | | 2022-09-13 | [facility] | 59 | (missing) | (missing) | | (unavailable | 13:00:08 | [facility] | | | | + + + +------+ + + + + | Result panel 52 | + + + + + +---------+ + + | | 2022-09-13 | [facility] | 16.54 | (missing) | (missing) | | (unavailable | 13:00:08 | [facility] | | | | + + + +---------+ + + + + | Result panel 53 | + + + + + +-------+ + + | | 2022-09-13 | [facility] | 136 | (missing) | (missing) | | (unavailable | 13:00:08 | [facility] | | | | + + + +-------+ + + + + | Result panel 54 | + + + + + +-------+ + + | | 2022-09-13 | [facility] | 4.4 | (missing) | (missing) | | (unavailable | 13:00:08 | [facility] | | | | + + + +-------+ + + + + | Result panel 55 | + + + + + +-------+ + + | | 2022-09-13 | [facility] | 104 | (missing) | (missing) | | (unavailable | 13:00:08 | [facility] | | | | + + + +-------+ + + + + | Result panel 56 | + + + + + +------+ + + | | 2022-09-13 | [facility] | 24 | (missing) | (missing) | | (unavailable | 13:00:08 [facility] | | | | + + + +------+ + + + + | Result panel 57 | + + + + + +--------+ + + | | 2022-09-13 | [facility] | 12.4 | (missing) | (missing) | | (unavailable | 13:00:08 [facility] | | | | + + + +--------+ + + + + | Result panel 58 | + + + + + +-------+---------+ + | | 2022-09-13 | [facility] | 9.0 | mg/dL | (missing) | | (unavailable | 13:00:08 | [facility] | | | | + + + +-------+---------+ + + + | Result panel 59 | + + + + + +-------+ + + | | 2022-09-13 | [facility] | 7.6 | (missing) | (missing) | | (unavailable | 13:00:08 | [facility] | | | | + + + +-------+ + + + + | Result panel 60 | + + + + + +-------+ + + | | 2022-09-13 | [facility] | 3.4 | (missing) | (missing) | | (unavailable | 13:00:08 | [facility] | | | | + + + +-------+ + + + + | Result panel 61 | + + + + + +-------+ + + | | 2022-09-13 | [facility] | 4.2 | (missing) | (missing) | | (unavailable | 13:00:08 [facility] | | | | + + + +-------+ + + + + | Result panel 62 | + + + + + +--------+ + + | | 2022-09-13 | [facility] | 0.81 | (missing) | (missing) | | (unavailable | 13:00:08 [facility] | | | | + + + +--------+ + + + + | Result panel 63 | + + + + + +-------+ + + | | 2022-09-13 | [facility] | 0.4 | (missing) | (missing) | | (unavailable | 13:00:08 | [facility] | | | | + + + +-------+ + + + + | Result panel 64 | + + + + + +------+ + + | | 2022-09-13 | [facility] | 11 | (missing) | (missing) | | (unavailable | 13:00:08 [facility] | | | | + + + +------+ + + + + | Result panel 65 | + + + + + +------+ + + | | 2022-09-13 | [facility] | 15 | (missing) | (missing) | | (unavailable | 13:00:08 [facility] | | | | + + + +------+ + + + + | Result panel 66 | + + + + + +------+ + + | | 2022-09-13 | [facility] | 94 | (missing) | (missing) | | (unavailable | 13:00:08 [facility] | | | | + + + +------+ + + + + | Result panel 67 | + + + + + +--------+ + + | | 2022-09-13 | [facility] | 11.3 | (missing) | (missing) | | (unavailable | 13:00:08 [facility] | | | | + + + +--------+ + + + + | Result panel 68 | + + + + + +--------+ + + | | 2022-09-13 | [facility] | 4.83 | (missing) | (missing) | | (unavailable | 13:00:08 [facility] | | | | + + + +--------+ + + + + | Result panel 69 | + + + + + +--------+ + + | | 2022-09-13 | [facility] | 12.1 | (missing) | (missing) | | (unavailable | 13:00:08 [facility] | | | | + + + +--------+ + + + + | Result panel 70 | + + + + + +--------+ + + | | 2022-09-13 | [facility] | 38.8 | (missing) | (missing) | | (unavailable | 13:00:08 | [facility] | | | | + + + +--------+ + + + + | Result panel 71 | + + + + + +--------+ + + | | 2022-09-13 | [facility] | 80.3 | (missing) | (missing) | | (unavailable | 13:00:08 [facility] | | | | + + + +--------+ + + + + | Result panel 72 | + + + + + +--------+ + + | | 2022-09-13 | [facility] | 25.1 | (missing) | (missing) | | (unavailable | 13:00:08 [facility] | | | | + + + +--------+ + + + + | Result panel 73 | + + + + + +--------+ + + | | 2022-09-13 | [facility] | 31.3 | (missing) | (missing) | | (unavailable | 13:00:08 [facility] | | | | + + + +--------+ + + + + | Result panel 74 | + + + + + +--------+ + + | | 2022-09-13 | [facility] | 16.7 | (missing) | (missing) | | (unavailable | 13:00:08 [facility] | | | | + + + +--------+ + + + + | Result panel 75 | + + + + + +-------+ + + | | 2022-09-13 | [facility] | 217 | (missing) | (missing) | | (unavailable | 13:00:08 | [facility] | | | | + + + +-------+ + + + + | Result panel 76 | + + + + + +--------+ + + | | 2022-09-13 | [facility] | 75.4 | (missing) | (missing) | | (unavailable | 13:00:08 [facility] | | | | + + + +--------+ + + + + | Result panel 77 | + + + + + +--------+ + + | | 2022-09-13 | [facility] | 12.6 | (missing) | (missing) | | (unavailable | 13::08 | [facility] | | | | + + + +--------+ + + + + | Result panel 78 | + + + + + +--------+ + + | | 2022-09-13 | [facility] | 10.7 | (missing) | (missing) | | (unavailable | 13:00:08 [facility] | | | | + + + +--------+ + + + + | Result panel 79 | + + + + + +-------+ + + | | 2022-09-13 | [facility] | 0.3 | (missing) | (missing) | | (unavailable | 13::08 | [facility] | | | | + + + +-------+ + + + + | Result panel 80 | + + + + + +-------+ + + | | 2022-09-13 | [facility] | 1.0 | (missing) | (missing) | | (unavailable | ::08 | [facility] | | | | + + + +-------+ + + + + | Result panel 81 | + + + + + +------+---------+ + | | 2022-09-13 | [facility] | 73 | mg/dL | (missing) | | (unavailable | 13:00:08 | [facility] | | | | + + + +------+---------+ + + + | Result panel 82 | + + + + + +------+---------+ + | | 2022-09-13 | [facility] | 22 | mg/dL | (missing) | | (unavailable | 13:00:08 | [facility] | | | | + + + +------+---------+ + + + | Result panel 83 | + + + + + +--------+---------+ + | | 2022-09-13 | [facility] | 1.33 | mg/dL | (missing) | | (unavailable | 13::08 | [facility] | | | | + + + +--------+---------+ + + + | Result panel 84 | + + + + + +------+ + + | | 2022-09-13 | [facility] | 59 | (missing) | (missing) | | (unavailable | 13::08 | [facility] | | | | + + + +------+ + + + + | Result panel 85 | + + + + + +---------+ + + | | 2022-09-13 | [facility] | 16.54 | (missing) | (missing) | | (unavailable | 13::08 | [facility] | | | | + + + +---------+ + + + + | Result panel 86 | + + + + + +-------+ + + | | 2022-09-13 | [facility] | 136 | (missing) | (missing) | | (unavailable | 13::08 | [facility] | | | | + + + +-------+ + + + + | Result panel 87 | + + + + + +-------+ + + | | 2022-09-13 | [facility] | 4.4 | (missing) | (missing) | | (unavailable | 13::08 | [facility] | | | | + + + +-------+ + + + + | Result panel 88 | + + + + + +-------+ + + | | 2022-09-13 | [facility] | 104 | (missing) | (missing) | | (unavailable | 13::08 | [facility] | | | | + + + +-------+ + + + + | Result panel 89 | + + + + + +------+ + + | | 2022-09-13 | [facility] | 24 | (missing) | (missing) | | (unavailable | 13:00:08 | [facility] | | | | + + + +------+ + + + + | Result panel 90 | + + + + + +--------+ + + | | 2022-09-13 | [facility] | 12.4 | (missing) | (missing) | | (unavailable | 13:00:08 | [facility] | | | | + + + +--------+ + + + + | Result panel 91 | + + + + + +-------+---------+ + | | 2022-09-13 | [facility] | 9.0 | mg/dL | (missing) | | (unavailable | 13:00:08 | [facility] | | | | + + + +-------+---------+ + + + | Result panel 92 | + + + + + +-------+ + + | | 2022-09-13 | [facility] | 7.6 | (missing) | (missing) | | (unavailable | 13:00:08 | [facility] | | | | + + + +-------+ + + + + | Result panel 93 | + + + + + +-------+ + + | | 2022-09-13 | [facility] | 3.4 | (missing) | (missing) | | (unavailable | 13:00:08 | [facility] | | | | + + + +-------+ + + + + | Result panel 94 | + + + + + +-------+ + + | | 2022-09-13 | [facility] | 4.2 | (missing) | (missing) | | (unavailable | 13:00:08 [facility] | | | | + + + +-------+ + + + + | Result panel 95 | + + + + + +--------+ + + | | 2022-09-13 | [facility] | 0.81 | (missing) | (missing) | | (unavailable | 13:00:08 | [facility] | | | | + + + +--------+ + + + + | Result panel 96 | + + + + + +-------+ + + | | 2022-09-13 | [facility] | 0.4 | (missing) | (missing) | | (unavailable | 13:00:08 | [facility] | | | | + + + +-------+ + + + + | Result panel 97 | + + + + + +------+ + + | | 2022-09-13 | [facility] | 11 | (missing) | (missing) | | (unavailable | 13:00:08 [facility] | | | | + + + +------+ + + + + | Result panel 98 | + + + + + +------+ + + | | 2022-09-13 | [facility] | 15 | (missing) | (missing) | | (unavailable | 13:00:08 | [facility] | | | | + + + +------+ + + + + | Result panel 99 | + + + + + +------+ + + | | 2022-09-13 | [facility] | 94 | (missing) | (missing) | | (unavailable | 13:00:08 | [facility] | | | | + + + +------+ + + + + | Serum or plasma alanine aminotransferase measurement (enzymatic activity/volume) | + + + + + +------+ + + | Serum or | 2022-09-13 | [facility] | 15 | (missing) | (missing) | | plasma | 13:00 | [facility] | | | | alanine | | [facility] | | | | | aminotransfe | | | | | | | rase | | | | | | | measurement | | | | | | | (enzymatic | | | | | | | activity/vol | | | | | | | ume) | | | | | | + + + +------+ + + + + | Serum or plasma albumin measurement (mass/volume) | + + + + + +-------+ + + | Serum or | 2022-09-13 | [facility] | 3.4 | (missing) | (missing) | | plasma | 13:00 | [facility] | | | | albumin | | [facility] | | | | | measurement | | | | | | | (mass/volume | | | | | | | ) | | | | | | + + + +-------+ + + + + | Serum or plasma albumin/globulin mass ratio | + + + + + +--------+ + + | Serum or | 2022-09-13 | [facility] | 0.81 | (missing) | (missing) | | plasma | 13:00 | [facility] | | | | albumin/glob | | [facility] | | | | | ulin mass | | | | | | | ratio | | | | | | + + + +--------+ + + + + | Serum or plasma calcium measurement (mass/volume) | + + + + + +-------+ + + | Serum or | 2022-09-13 | [facility] | 9.0 | (missing) | (missing) | | plasma | 13:00 | [facility] | | | | calcium | | [facility] | | | | | measurement | | | | | | | (mass/volume | | | | | | | ) | | | | | | + + + +-------+ + + + + | Serum or plasma anion gap 4 | + + + + + +--------+ + + | Serum or | 2022-09-13 | [facility] | 12.4 | (missing) | (missing) | | plasma anion | 13:00 | [facility] | | | | gap 4 | | [facility] | | | | + + + +--------+ + + + + | Serum or plasma aspartate aminotransferase measurement (enzymatic activity/volume) | + + + + + +------+ + + | Serum or | 2022-09-13 | [facility] | 11 | (missing) | (missing) | | plasma | 13:00 | [facility] | | | | aspartate | | [facility] | | | | | aminotransfe | | | | | | | rase | | | | | | | measurement | | | | | | | (enzymatic | | | | | | | activity/vol | | | | | | | ume) | | | | | | + + + +------+ + + + + | Serum or plasma total bilirubin measurement (mass/volume) | + + + + + +-------+ + + | Serum or | 2022-09-13 | [facility] | 0.4 | (missing) | (missing) | | plasma total | 13:00 | [facility] | | | | bilirubin | | [facility] | | | | | measurement | | | | | | | (mass/volume | | | | | | | ) | | | | | | + + + +-------+ + + + + | Serum or plasma carbon dioxide, total measurement (moles/volume) | + + + + + +------+ + + | Serum or | 2022-09-13 | [facility] | 24 | (missing) | (missing) | | plasma | 13:00 | [facility] | | | | | carbon | | [facility] | | | | | dioxide, | | | | | | | total | | | | | | | measurement | | | | | | | (moles/volum | | | | | | | e) | | | | | | + + + +------+ + + + + | Serum or plasma chloride measurement (moles/volume) | + + + + + +-------+ + + | Serum or | 2022-09-13 | [facility] | 104 | (missing) | (missing) | | plasma | 13:00 | [facility] | | | | | chloride | | [facility] | | | | | measurement | | | | | | | (moles/volum | | | | | | | e) | | | | | | + + + +-------+ + + + + | Automated erythrocyte distribution width | + + + + + +--------+ + + | Automated | 2022-09-13 | [facility] | 16.7 | (missing) | (missing) | | erythrocyte | 13:00 | [facility] | | | | | distribution | | [facility] | | | | | width | | | | | | + + + +--------+ + + + + | Serum or plasma creatinine measurement (mass/volume) | + + + + + +--------+ + + | Serum or | 2022-09-13 | [facility] | 1.33 | (missing) | (missing) | | plasma | 13:00 | [facility] | | | | | creatinine | | [facility] | | | | | measurement | | | | | | | (mass/volume | | | | | | | ) | | | | | | + + + +--------+ + + + + | Serum globulin measurement (mass/volume) | + + + + + +-------+ + + | Serum | 2022-09-13 | [facility] | 4.2 | (missing) | (missing) | | globulin | 13:00 | [facility] | | | | measurement | | [facility] | | | | | (mass/volume | | | | | | | ) | | | | | | + + + +-------+ + + + + | Serum or plasma glucose measurement (mass/volume) | + + + + + +------+ + + | Serum or | 2022-09-13 | [facility] | 73 | (missing) | (missing) | | plasma | 13:00 | [facility] | | | | | glucose | | [facility] | | | | | measurement | | | | | | | (mass/volume | | | | | | | ) | | | | | | + + + +------+ + + + + | Serum or plasma potassium measurement (moles/volume) | + + + + + +-------+ + + | Serum or | 2022-09-13 | [facility] | 4.4 | (missing) | (missing) | | plasma | 13:00 | [facility] | | | | | potassium | | [facility] | | | | | measurement | | | | | | | (moles/volum | | | | | | | e) | | | | | | + + + +-------+ + + + + | Serum or plasma protein measurement (mass/volume) | + + + + + +-------+ + + | Serum or | 2022-09-13 | [facility] | 7.6 | (missing) | (missing) | | plasma | 13:00 | [facility] | | | | | protein | | [facility] | | | | | measurement | | | | | | | (mass/volume | | | | | | | ) | | | | | | + + + +-------+ + + + + | Serum or plasma sodium measurement (moles/volume) | + + + + + +-------+ + + | Serum or | 2022-09-13 | [facility] | 136 | (missing) | (missing) | | plasma | 13:00 | [facility] | | | | | sodium | | [facility] | | | | | measurement | | | | | | | (moles/volum | | | | | | | e) | | | | | | + + + +-------+ + + + + | Serum or plasma urea nitrogen measurement (mass/volume) | + + + + + +------+ + + | Serum or | 2022-09-13 | [facility] | 22 | (missing) | (missing) | | plasma urea | 13:00 | [facility] | | | | | nitrogen | | [facility] | | | | | measurement | | | | | | | (mass/volume | | | | | | | ) | | | | | | + + + +------+ + + + + | Serum or plasma urea nitrogen/creatinine mass ratio | + + + + + +---------+ + + | Serum or | 2022-09-13 | [facility] | 16.54 | (missing) | (missing) | | plasma urea | 13:00 | [facility] | | | | | nitrogen/cre | | Hospital | | | | | atinine mass | | | | | | | ratio | | | | | | + + + +---------+ + + + + | Automated blood monocyte count as percentage of total leukocytes | + + + + + +--------+ + + | Automated | 2022-09-13 | [facility] | 10.7 | (missing) | (missing) | | blood | 13:00 | [facility] | | | | [facility] | | | | | count as | | | | | | | percentage | | | | | | | of total | | | | | | | leukocytes | | | | | | + + + +--------+ + + + + | Blood leukocytes automated count (number/volume) | + + + + + +--------+ + + | Blood | 2022-09-13 | [facility] | 11.3 | (missing) | (missing) | | leukocytes | 13:00 | [facility] | | | | automated | | [facility] | | | | | count | | | | | | | (number/volu | | | | | | | me) | | | | | | + + + +--------+ + + + + | Serum or plasma alkaline phosphatase measurement (enzymatic activity/volume) | + + + + + +------+ + + | Serum or | 2022-09-13 | [facility] | 94 | (missing) | (missing) | | plasma | 13:00 | [facility] | | | | alkaline | | [facility] | | | | | phosphatase | | | | | | | measurement | | | | | | | (enzymatic | | | | | | | activity/vol | | | | | | | ume) | | | | | | + + + +------+ + + + + | Automated blood basophil count as percentage of total leukocytes | + + + + + +-------+ + + | Automated | 2022-09-13 | [facility] | 1.0 | (missing) | (missing) | | blood | 13:00 | [facility] | | | | basophil | | [facility] | | | | | count as | | | | | | | percentage | | | | | | | of total | | | | | | | leukocytes | | | | | | + + + +-------+ + + + + | Automated blood eosinophil count as percentage of total leukocytes | + + + + + +-------+ + + | Automated | 2022-09-13 | [facility] | 0.3 | (missing) | (missing) | | blood | 13:00 | [facility] | | | | | eosinophil | | [facility] | | | | | count as | | | | | | | percentage | | | | | | | of total | | | | | | | leukocytes | | | | | | + + + +-------+ + + + + | Blood hemoglobin measurement (mass/volume) | + + + + + +--------+ + + | Blood | 2022-09-13 | [facility] | 12.1 | (missing) | (missing) | | hemoglobin | 13:00 | [facility] | | | | | measurement | | [facility] | | | | | (mass/volume | | | | | | | ) | | | | | | + + + +--------+ + + + + | Automated blood hematocrit | + + + + + +--------+ + + | Automated | 2022-09-13 | [facility] | 38.8 | (missing) | (missing) | | blood | 13:00 | [facility] | | | | hematocrit | | [facility] | | | | + + + +--------+ + + + + | Automated blood lymphocyte count as percentage ot total leukocytes | + + + + + +--------+ + + | Automated | 2022-09-13 | [facility] | 12.6 | (missing) | (missing) | | blood | 13:00 | [facility] | | | | | lymphocyte | | [facility] | | | | | count as | | | | | | | percentage | | | | | | | ot total | | | | | | | leukocytes | | | | | | + + + +--------+ + + + + | Automated blood neutrophil count as percentage of total leukocytes | + + + + + +--------+ + + | Automated | 2022-09-13 | [facility] | 75.4 | (missing) | (missing) | | blood | 13:00 | [facility] | | | | neutrophil | | [facility] | | | | | count as | | | | | | | percentage | | | | | | | of total | | | | | | | leukocytes | | | | | | + + + +--------+ + + + + | Automated blood platelet count (count/volume) | + + + + + +-------+ + + | Automated | 2022-09-13 | [facility] | 217 | (missing) | (missing) | | blood | 13:00 | [facility] | | | | platelet | | [facility] | | | | | count | | | | | | | (count/volum | | | | | | | e) | | | | | | + + + +-------+ + + + + | Automated erythrocyte mean corpuscular hemoglobin (mass per erythrocyte) | + + + + + +--------+ + + | Automated | 2022-09-13 | [facility] | 25.1 | (missing) | (missing) | | erythrocyte | 13:00 | [facility] | | | | | mean | | [facility] | | | | | corpuscular | | | | | | | hemoglobin | | | | | | | (mass per | | | | | | | erythrocyte) | | | | | | | | | | | | | + + + +--------+ + + + + | Automated erythrocyte mean corpuscular hemoglobin concentration measurement | | (mass/volume) | + + + + + +--------+ + + | Automated | 2022-09-13 | [facility] | 31.3 | (missing) | (missing) | | erythrocyte | 13:00 | [facility] | | | | | mean | | [facility] | | | | | corpuscular | | | | | | | hemoglobin | | | | | | | concentratio | | | | | | | n | | | | | | | measurement | | | | | | | (mass/volume | | | | | | | ) | | | | | | + + + +--------+ + + + + | Automated erythrocyte mean corpuscular volume | + + + + + +--------+ + + | Automated | 2022-09-13 | [facility] | 80.3 | (missing) | (missing) | | erythrocyte | 13:00 | [facility] | | | | mean | | [facility] | | | | | corpuscular | | | | | | | volume | | | | | | + + + +--------+ + + + + | Blood erythrocytes automated count (number/volume) | + + + + + +--------+ + + | Blood | 2022-09-13 | [facility] | 4.83 | (missing) | (missing) | | erythrocytes | 13:00 | [facility] | | | | automated | | [facility] | | | | | count | | | | | | | (number/volu | | | | | | | me) | | | | | | + + + +--------+ + + + + | Glomerular filtration rate/1.73 sq M.predicted [Volume Rate/Area] inSerum, Plasma or | | Blood by Creatinine-based formula (CKD-EPI 2020) | + + + + + +------+ + + | Glomerular | 2022-09-13 | [facility] | 59 | (missing) | (missing) | | filtration | 13:00 | [facility] | | | | | rate/1.73 sq | | Hospital | | | | | M.predicted | | | | | | | [Volume | | | | | | | Rate/Area] | | | | | | | inSerum, | | | | | | | Plasma or | | | | | | | Blood by | | | | | | | Creatinine-b | | | | | | | ased formula | | | | | | | (CKD-EPI | | | | | | | 2020) | | | | | | + + + +------+ + + Social History + + + + | date | description | facility | + + + + | 2022-09-13 00:00 | Current every day smoker | [facility] | + + + + | 2022-10-12 00:00 | Current every day smoker | [facility] | + + + + Vital Signs + + + +---------+ | date | measurement | value | units | + + + +---------+ | 2022-09-13 00:00 | BMI | 36.3 | kg/m2 | + + + +---------+ | 2022-09-13 00:00 | BP_diastolic | 62 | mmHg | + + + +---------+ | 2022-09-13 00:00 | BP_systolic | 127 | mmHg | + + + +---------+ | 2022-09-13 00:00 | heart_rate | 78 | /min | + + + +---------+ | 2022-09-13 00:00 | height_metric | 167.64 | cm | + + + +---------+ | 2022-09-13 00:00 | height_standard | 66 | in | + + + +---------+ | 2022-09-13 00:00 | o2_saturation | 98 | % | + + + +---------+ | 2022-09-13 00:00 | respiration_rate | 16 | /min | + + + +---------+ | 2022-09-13 00:00 | temperature_metric | 36.78 | C | | | | | | + + + +---------+ | 2022-09-13 00:00 | | 98.2 | F | | | temperature_standar | | | | | d | | | + + + +---------+ | 2022-09-13 00:00 | weight_metric | 102.06 | kg | + + + +---------+ | 2022-09-13 00:00 | weight_standard | 225 | lb | + + + +---------+ | 2022-10-12 00:00 | BMI | 38.0 | kg/m2 | + + + +---------+ | 2022-10-12 00:00 | BP_diastolic | 76 | mmHg | + + + +---------+ | 2022-10-12 00:00 | BP_systolic | 154 | mmHg | + + + +---------+ | 2022-10-12 00:00 | heart_rate | 79 | /min | + + + +---------+ | 2022-10-12 00:00 | height_metric | 167.64 | cm | + + + +---------+ | 2022-10-12 00:00 | height_standard | 66 | in | + + + +---------+ | 2022-10-12 00:00 | o2_saturation | 97 | % | + + + +---------+ | 2022-10-12 00:00 | respiration_rate | 22 | /min | + + + +---------+ | 2022-10-12 00:00 | temperature_metric | 36.56 | C | | | | | | + + + +---------+ | 2022-10-12 00:00 | | 97.8 | F | | | temperature_standar | | | | | d | | | + + + +---------+ | 2022-10-12 00:00 | weight_metric | 106.7 | kg | + + + +---------+ | 2022-10-12 00:00 | weight_standard | 235.23 | lb | + + + +---------+"
--- OUTSIDE RECORDS SUMMARY | ~2023-05-16 | XMS | Continuity of Care Document ---
Demographics + + + | Address | [address] [facility] [address] | | | [place] [address] | + + + | Preferred Language | Unknown | + + + | Marital Status | | + + + | Congregation Affiliation | Unknown | + + + | Race | White | + + + | Ethnic Group | Not or | + + + Author + + + | Author | [facility] | + + + | Organization | [facility] | + + + | Address | [address] | | | [place] [address] | + + + | Phone | | + + + Care Team Providers + + + + | Care Showroom Executive Director Name | Role | Phone | + [...] 2022-09-13 00:00 | No vaccine administered | [facility] | + + + + | 2022-10-12 00:00 | No vaccine administered | [facility] | + + + + Medications + + + + | date | description | facility | + + + + | 2017-06-09 00:00 | LORAZEPAM | [facility] | + + + + | 2017-06-09 00:00 | LORAZEPAM | [facility] | + + + + | 2017-06-09 00:00 | lorazepam 1 MG Oral Tablet | [facility] | | | [Ativan] | | + + + + | 2022-09-13 00:00 | HUM INSULIN NPH/REG | [facility] | | | INSULIN HM | | + + + + | 2022-10-12 00:00 | HUM INSULIN NPH/REG | [facility] | | | INSULIN HM | | + + + + | 2022-09-13 00:00 | insulin isophane, human 70 | [facility] | | | UNT/ML / insulin, regular, | | | | human | | + + + + | 2022-10-12 00:00 | insulin isophane, human 70 | [facility] | | | UNT/ML / insulin, regular, | | | | human | | + + + + | 2022-09-13 00:00 | 120 ACTUAT albuterol 0.1 | [facility] | | | MG/ACTUAT / ipratropium | | | | bromide 0.0 | | + + + + | 2022-10-12 00:00 | 120 ACTUAT albuterol 0.1 | [facility] | | | MG/ACTUAT / ipratropium | | | | bromide 0.0 | | + + + + | 2022-09-13 00:00 | IPRATROPIUM/ALBUTEROL | [facility] | | | SULFATE | | + + + + | 2022-10-12 00:00 | IPRATROPIUM/ALBUTEROL | [facility] | | | SULFATE | | + + + + | 2022-09-13 00:00 | 120 ACTUAT budesonide 0.08 | [facility] | | | MG/ACTUAT / formoterol | | | | fumarate 0 | | + + + + | 2022-10-12 00:00 | 120 ACTUAT budesonide 0.08 | [facility] | | | MG/ACTUAT / formoterol | | | | fumarate 0 | | + + + + | 2022-09-13 00:00 | BUDESONIDE/FORMOTEROL | [facility] | | | FUMARATE | | + + + + | 2022-10-12 00:00 | BUDESONIDE/FORMOTEROL | [facility] | | | FUMARATE | | + + + + | 2018-09-10 00:00 | IPRATROPIUM/ALBUTEROL | [facility] | | | SULFATE | | + + + + | 2018-09-10 00:00 | IPRATROPIUM/ALBUTEROL | [facility] | | | SULFATE | | + + + + | 2022-10-12 00:00 | IPRATROPIUM/ALBUTEROL | [facility] | | | SULFATE | | + + + + | 2018-09-10 00:00 | albuterol 0.833 MG/ML / | [facility] | | | ipratropium bromide 0.167 | | | | MG/ML Inha | | + + + + | 2022-10-12 00:00 | albuterol 0.833 MG/ML / | [facility] | | | ipratropium bromide 0.167 | | | | MG/ML Inha | | + + + + | 2022-09-13 00:00 | COLCHICINE | [facility] | + + + + | 2022-09-13 00:00 | colchicine 0.6 MG Oral | [facility] | | | Capsule | | + + + + | 2022-09-13 00:00 | DOXYCYCLINE HYCLATE | [facility] | + + + + | 2022-09-13 00:00 | doxycycline hyclate 100 MG | [facility] | | | Oral Capsule | | + + + + | 2022-09-13 00:00 | 30 ACTUAT fluticasone | [facility] | | | furoate 0.1 MG/ACTUAT / | | | | umeclidinium 0 | | + + + + | 2022-10-12 00:00 | 30 ACTUAT fluticasone | [facility] | | | furoate 0.1 MG/ACTUAT / | | | | umeclidinium 0 | | + + + + | 2022-09-13 00:00 | | [facility] | | | Fluticasone/Umeclidin/Vilan | | | | ter | | + + + + | 2022-10-12 00:00 | | [facility] | | | Fluticasone/Umeclidin/Vilan | | | | ter | | + + + + | 2022-09-13 00:00 | LISINOPRIL | [facility] | + + + + | 2022-10-12 00:00 | LISINOPRIL | [facility] | + + + + | 2022-09-13 00:00 | lisinopril 40 MG Oral | [facility] | | | Tablet | | + + + + | 2022-10-12 00:00 | lisinopril 40 MG Oral | [facility] | | | Tablet | | + + + + | 2022-10-12 00:00 | FUROSEMIDE | [facility] | + + + + | 2022-10-12 00:00 | furosemide 20 MG Oral | [facility] | | | Tablet [Lasix] | | + + + + | 2022-09-13 00:00 | Insulin NPH Hum/Reg | [facility] | | | Insulin Hm | | + + + + | 2022-10-12 00:00 | Insulin NPH Hum/Reg | [facility] | | | Insulin Hm | | + + + + | 2022-09-13 00:00 | insulin isophane, human 70 | [facility] | | | UNT/ML / insulin, regular, | | | | human | | + + + + | 2022-10-12 00:00 | insulin isophane, human 70 | [facility] | | | UNT/ML / insulin, regular, | | | | human | | + + + + | 2022-09-13 00:00 | ATORVASTATIN CALCIUM | [facility] | + + + + | 2022-10-12 00:00 | ATORVASTATIN CALCIUM | [facility] | + + + + | 2022-09-13 00:00 | atorvastatin 80 MG Oral | [facility] | | | Tablet | | + + + + | 2022-10-12 00:00 | atorvastatin 80 MG Oral | [facility] | | | Tablet | | + + + + | 2022-09-13 00:00 | AMLODIPINE BESYLATE | [facility] | + + + + | 2022-10-12 00:00 | AMLODIPINE BESYLATE | [facility] | + + + + | 2022-09-13 00:00 | amlodipine 10 MG Oral | [facility] | | | Tablet | | + + + + | 2022-10-12 00:00 | amlodipine 10 MG Oral | [facility] | | | Tablet | | + + + + | 2022-09-13 00:00 | ASPIRIN | [facility] | + + + + | 2022-10-12 00:00 | ASPIRIN | [facility] | + + + + | 2022-09-13 00:00 | aspirin 81 MG Delayed | [facility] | | | Release Oral Tablet | | + + + + | 2022-10-12 00:00 | aspirin 81 MG Delayed | [facility] | | | Release Oral Tablet | | + + + + | 2022-09-13 00:00 | CLOPIDOGREL BISULFATE | [facility] | + + + + | 2022-10-12 00:00 | CLOPIDOGREL BISULFATE | [facility] | + + + + | 2022-09-13 00:00 | clopidogrel 75 MG Oral | [facility] | | | Tablet | | + + + + | 2022-10-12 00:00 | clopidogrel 75 MG Oral | [facility] | | | Tablet | | + + + + | 2022-09-13 00:00 | Famotidine | [facility] | + + + + | 2022-10-12 00:00 | Famotidine | [facility] | + + + + | 2022-09-13 00:00 | famotidine 20 MG Oral | [facility] | | | Tablet | | + + + + | 2022-10-12 00:00 | famotidine 20 MG Oral | [facility] | | | Tablet | | + + + + | 2022-09-13 00:00 | FENOFIBRATE,MICRONIZED | [facility] | + + + + | 2022-10-12 00:00 | FENOFIBRATE,MICRONIZED | [facility] | + + + + | 2022-09-13 00:00 | fenofibrate 134 MG Oral | [facility] | | | Capsule | | + + + + | 2022-10-12 00:00 | fenofibrate 134 MG Oral | [facility] | | | Capsule | | + + + + | 2018-09-10 00:00 | predniSONE | [facility] | + + + + | 2018-09-10 00:00 | predniSONE | [facility] | + + + + | 2018-09-10 00:00 | prednisone 20 MG Oral | [facility] | | | Tablet | | + + + + | 2022-09-13 00:00 | SERTRALINE HCL | [facility] | + + + + | 2022-10-12 00:00 | SERTRALINE HCL | [facility] | + + + + | 2022-09-13 00:00 | sertraline 50 MG Oral | [facility] | | | Tablet | | + + + + | 2022-10-12 00:00 | sertraline 50 MG Oral | [facility] | | | Tablet | | + + + + | 2022-09-13 00:00 | HYDROCHLOROTHIAZIDE | [facility] | + + + + | 2022-10-12 00:00 | HYDROCHLOROTHIAZIDE | [facility] | + + + + | 2022-09-13 00:00 | hydrochlorothiazide 12.5 | [facility] | | | MG Oral Tablet | | + + + + | 2022-10-12 00:00 | hydrochlorothiazide 12.5 | [facility] | | | MG Oral Tablet | | + + + + | 2022-09-13 00:00 | ATORVASTATIN CALCIUM | [facility] | + + + + | 2022-10-12 00:00 | ATORVASTATIN CALCIUM | [facility] | + + + + | 2022-09-13 00:00 | atorvastatin 40 MG Oral | [facility] | | | Tablet | | + + + + | 2022-10-12 00:00 | atorvastatin 40 MG Oral | [facility] | | | Tablet | | + + + + | 2022-10-12 00:00 | TRAZODONE HCL | [facility] | + + + + | 2022-10-12 00:00 | trazodone hydrochloride | [facility] | | | 100 MG Oral Tablet | | + + + + | 2020-10-08 00:00 | HYDROCODONE | [facility] | | | BIT/ACETAMINOPHEN | | + + + + | 2020-10-08 00:00 | HYDROCODONE | [facility] | | | BIT/ACETAMINOPHEN | | + + + + | 2021-03-30 00:00 | HYDROCODONE | [facility] | | | BIT/ACETAMINOPHEN | | + + + + | 2021-03-30 00:00 | HYDROCODONE | [facility] | | | BIT/ACETAMINOPHEN | | + + + + | 2020-10-08 00:00 | acetaminophen 325 MG / | [facility] | | | hydrocodone bitartrate 5 MG | | | | Oral Tabl | | + + + + | 2021-03-30 00:00 | acetaminophen 325 MG / | [facility] | | | hydrocodone bitartrate 5 MG | | | | Oral Tabl | | + + + + | 2022-09-13 00:00 | METFORMIN HCL | [facility] | + + + + | 2022-10-12 00:00 | METFORMIN HCL | [facility] | + + + + | 2022-09-13 00:00 | metformin hydrochloride | [facility] | | | 1000 MG Oral Tablet | | + + + + | 2022-10-12 00:00 | metformin hydrochloride | [facility] | | | 1000 MG Oral Tablet | | + + + + | 2022-09-13 00:00 | METOPROLOL TARTRATE | [facility] | + + + + | 2022-10-12 00:00 | METOPROLOL TARTRATE | [facility] | + + + + | 2022-09-13 00:00 | metoprolol tartrate 100 MG | [facility] | | | Oral Tablet | | + + + + | 2022-10-12 00:00 | metoprolol tartrate 100 MG | [facility] | | | Oral Tablet | | + + + + | 2022-09-13 00:00 | 120 ACTUAT fluticasone | [facility] | | | propionate 0.115 MG/ACTUAT | | | | / salmeter | | + + + + | 2022-10-12 00:00 | 120 ACTUAT fluticasone | [facility] | | | propionate 0.115 MG/ACTUAT | | | | / salmeter | | + + + + | 2022-09-13 00:00 | FLUTICASONE/SALMETEROL | [facility] | + + + + | 2022-10-12 00:00 | FLUTICASONE/SALMETEROL | [facility] | + + + + | 2022-09-13 00:00 | HYDRALAZINE HCL | [facility] | + + + + | 2022-10-12 00:00 | HYDRALAZINE HCL | [facility] | + + + + | 2022-09-13 00:00 | hydralazine hydrochloride | [facility] | | | 100 MG Oral Tablet | | + + + + | 2022-10-12 00:00 | hydralazine hydrochloride | [facility] | | | 100 MG Oral Tablet | | + + + + | 2022-09-13 00:00 | LEVOTHYROXINE SODIUM | [facility] | + + + + | 2022-10-12 00:00 | LEVOTHYROXINE SODIUM | [facility] | + + + + | 2022-09-13 00:00 | levothyroxine sodium 0.075 | [facility] | | | MG Oral Tablet | | + + + + | 2022-10-12 00:00 | levothyroxine sodium 0.075 | [facility] | | | MG Oral Tablet | | + + + + | 2022-09-13 00:00 | 100 ACTUAT Beclomethasone | [facility] | | | Dipropionate 0.08 MG/ACTUAT | | | | [facility] | | + + + + | 2022-10-12 00:00 | 100 ACTUAT Beclomethasone | [facility] | | | Dipropionate 0.08 MG/ACTUAT | | | | [facility] | | + + + + | 2022-09-13 00:00 | BECLOMETHASONE | [facility] | | | DIPROPIONATE | | + + + + | 2022-10-12 00:00 | BECLOMETHASONE | [facility] | | | DIPROPIONATE | | + + + + Problems + + + + | date | description | facility | + + + + | 2017-01-24 00:00 | Renal insufficiency | [facility] | + + + + | 2017-01-24 00:00 | Diabetes | [facility] | + + + + | 2017-01-24 00:00 | Hyperglycemia | [facility] | + + + + | 2017-01-24 00:00 | Diabetes mellitus | [facility] | + + + + | 2017-01-24 00:00 | Diabetes mellitus | [facility] | + + + + | 2017-01-24 00:00 | Renal insufficiency | [facility] | + + + + | 2017-01-24 00:00 | Renal insufficiency | [facility] | + + + + | 2017-01-24 00:00 | Hyperglycemia | [facility] | + + + + | 2017-01-24 00:00 | Hyperglycemia | [facility] | + + + + | 2017-04-05 00:00 | Weakness | [facility] | + + + + | 2017-04-05 00:00 | Chronic renal | [facility] | | | insufficiency | | + + + + | 2017-04-05 00:00 | Chronic renal impairment | [facility] | + + + + | 2017-04-05 00:00 | Chronic renal impairment | [facility] | + + + + | 2017-04-05 00:00 | Weakness | [facility] | + + + + | 2017-04-05 00:00 | Weakness | [facility] | + + + + | 2017-06-09 00:00 | Stress | [facility] | + + + + | 2017-06-09 00:00 | Stress | [facility] | + + + + | 2017-06-09 00:00 | Stress | [facility] | + + + + | 2017-06-14 00:00 | Acute bronchitis | [facility] | + + + + | 2017-06-14 00:00 | Acute bronchitis | [facility] | + + + + | 2017-06-14 00:00 | Acute bronchitis | [facility] | + + + + | 2017-08-12 00:00 | Encounter for medical | [facility] | | | screening examination | | + + + + | 2017-08-12 00:00 | Encounter for medical | [facility] | | | screening examination | | + + + + | 2017-08-12 00:00 | Encounter for medical | [facility] | | | screening examination | | + + + + | 2017-08-21 00:00 | Insomnia disorder | [facility] | + + + + | 2017-08-21 00:00 | Insomnia | [facility] | + + + + | 2017-08-21 00:00 | Insomnia | [facility] | + + + + | 2018-03-23 00:00 | COPD exacerbation | [facility] | + + + + | 2018-03-23 00:00 | Acute exacerbation of | [facility] | | | chronic obstructive | | | | pulmonary disease | | + + + + | 2018-03-23 00:00 | Acute exacerbation of | [facility] | | | chronic obstructive | | | | pulmonary disease | | + + + + | 2019-02-25 00:00 | Hypoglycemia | [facility] | + + + + | 2019-02-25 00:00 | Hypoglycemia | [facility] | + + + + | 2019-02-25 00:00 | Hypoglycemia | [facility] | + + + + | 2019-11-08 00:00 | Viral respiratory illness | [facility] | + + + + | 2019-11-08 00:00 | Viral respiratory | [facility] | | | infection | | + + + + | 2019-11-08 00:00 | Viral respiratory | [facility] | | | infection | | + + + + | 2020-10-08 00:00 | Fracture of great toe | [facility] | + + + + | 2020-10-08 00:00 | Fracture of phalanx of | [facility] | | | great toe | | + + + + | 2020-10-08 00:00 | Fracture of phalanx of | [facility] | | | great toe | | + + + + | 2021-03-15 00:00 | COPD with acute bronchitis | [facility] | | | | | + + + + | 2021-03-15 00:00 | Acute bronchitis with | [facility] | | | chronic obstructive | | | | pulmonary disease (COPD) | | + + + + | 2021-03-15 00:00 | Acute bronchitis with | [facility] | | | chronic obstructive | | | | pulmonary disease (COPD) | | + + + + | 2021-03-30 00:00 | Acute gout of left foot | [facility] | + + + + | 2021-03-30 00:00 | Acute gout of left foot | [facility] | + + + + | 2021-03-30 00:00 | Acute gout of left foot | [facility] | + + + + | 2021-09-20 00:00 | COVID-19 | [facility] | + + + + | 2021-09-20 00:00 | Infection due to severe | [facility] | | | acute respiratory syndrome | | | | coronavirus 2 (SARS-CoV-2) | | + + + + | 2021-09-20 00:00 | Infection due to severe | [facility] | | | acute respiratory syndrome | | | | coronavirus 2 (SARS-CoV-2) | | + + + + | 2022-01-07 00:00 | Hypoxia | [facility] | + + + + | 2022-01-07 00:00 | URI (upper respiratory | [facility] | | | infection) | | + + + + | 2022-01-07 00:00 | Upper respiratory tract | [facility] | | | infection | | + + + + | 2022-01-07 00:00 | Upper respiratory tract | [facility] | | | infection | | + + + + | 2022-01-07 00:00 | Hypoxia | [facility] | + + + + | 2022-01-07 00:00 | Hypoxia | [facility] | + + + + | 2022-01-07 [...] + | 2022-09-13 00:00 | Gout | [facility] | + + + + | 2022-09-13 00:00 | Gout | [facility] | + + + + | 2022-09-13 00:00 | Gout | [facility] | + + + + | 2022-10-12 00:00 | CHF (congestive heart | [facility] | | | failure) | | + + + + | 2022-10-12 00:00 | Congestive heart failure | [facility] | + + + + Procedures No [...] (missing) | | leukocytes | 13:00 | [facility] | | | | | automated | [...] 00:00 | Current every day smoker | [facility] | + + + + | 2022-10-12 00:00 | Current every day smoker | [facility] | + + + + Vital Signs [...]
[~2023-05-16 12:29] MED LIST changes: +LASIX20 MG PO; +TRAZODONE HCL100 MG PO
[2023-05-16] MEDS ORDERED: HYDROCODON-ACE1 EA10 PO (20:12)
[2023-05-16 20:23] LABS: BASOPHILS 0.4 % (0-2); EOSINOPHILS 0.2 % (0-6); HEMATOCRIT 38.9 % (35.0-50.0); HEMOGLOBIN 13.1 g/dL (12.0-18.0); LYMPHOCYTES 14.4 % (24-44); MCH 27.1 (27-36); MCHC 33.7 g/dl (30-36); MCV 80.5 fl (81-99); MONOCYTES 9.5 % (0-12); NEUTROPHILS 75.5 % (39-80); PLATELET COUNT 154 K/uL (140-440); RBC 4.83 M/ul (4.3-5.7); RDW 16.4 (10.5-15.0)
[2023-05-16 21:00] VITALS: BP 155/70
== END 2023-05-16 21:04 | disposition home or self-care (01) ==
LOC: ED 12:29
PROVIDERS: Family Medicine
DX: S32.029A Unspecified fracture of second lumbar vertebra, initial encounter for closed fracture (principal); W18.39XA Other fall on same level, initial encounter; I11.0 Hypertensive heart disease with heart failure; I50.9 Heart failure, unspecified; J44.9 Chronic obstructive pulmonary disease, unspecified; E11.9 Type 2 diabetes mellitus without complications; F17.200 Nicotine dependence, unspecified, uncomplicated; Z79.899 Other long term (current) drug therapy; Z79.4 Long term (current) use of insulin; Z79.84 Long term (current) use of oral hypoglycemic drugs; Z79.82 Long term (current) 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
CPT/HCPCS: 36415; 71045; 72100; 85025; 99283-25; 99406; A9270; J2270

== ENCOUNTER 2023-07-04 17:03 | Emergency (ER) | payer OTHER, MEDICARE ==
[~2023-07-04] VITALS: Ht 167.6 cm; Wt 106.7 kg
--- OUTSIDE RECORDS SUMMARY | 2023-07-04 17:06 | XMS ---
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 - Patient with suicidal and/or homicidal ideations eloped. - Patient eloped with IV in place. Details: PATIENT LEFT AMA CRITERIA MET - PDMP CARE PROVIDERS GILMA HARRISON Internal Medicine 03/31/2021-Current PHONE: Unknown Damian has no Care Guidelines for this patient. Care History Medical/Surgical 03/25/2018 [facility] - Patient is currently established with [facility]. If patient is seen in the ED during business hours. Please contact [facility] at [facility] at Ayw [phone]. Care Recommendation: This patient has had 5 or more Emergency Department visits in the last 12 months.\T\nbsp; Patient requires education on the scope and purpose of the ED as an acute care provider not a Primary Care Provider and should not be utilized for chronic conditions.\T\nbsp; If patient returns to ED please contact Community Health WorkerLizzie at [phone]. These are guidelines and the provider should exercise clinical judgment when providing care. E.D. VISIT COUNT (12 MO.) 4 [facility] Fleming TOTAL 4 NOTE: Visits indicate total known visits. 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 - long-term (current) use of insulin - long-term (current) use of oral hypoglycemic drugs - Low back pain, unspecified - Nicotine dependence, unspecified, uncomplicated - Other fall on same level, initial encounter - Other terminal operations supervisor (current) drug therapy - Type 2 diabetes mellitus without complications - Unspecified fracture of second lumbar vertebra, initial encounter for closed fracture 10/11/2022 23:50 [facility] [place] TYPE: Emergency COMPLAINT: - UNABLE TO SLEEP DIAGNOSES: - Chronic obstructive pulmonary disease, unspecified - Heart failure, unspecified - Hypertensive heart disease with heart failure - Insomnia, unspecified - 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) 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 - 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) use of insulin - Nicotine dependence, unspecified, uncomplicated - Other terminal operations supervisor (current) drug therapy - Shortness of breath - Type 2 diabetes mellitus without complications 09/13/2022 11:09 [facility] [place] TYPE: Emergency COMPLAINT: - L FOOT SWOLLEN/PAIN DIAGNOSES: - Chronic obstructive pulmonary disease, unspecified - Gout, unspecified - Heart failure, unspecified - Hypertensive heart disease with heart failure - Localized edema - long-term (current) 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 - long-term (current) use of insulin - Nicotine dependence, unspecified, uncomplicated - Other fci (current) drug therapy - Presence of coronary angioplasty implant and graft - Type 2 diabetes mellitus without complications INPATIENT VISIT TRACKING (12 MO.) No inpatient visits to display in this time frame [email or web address]
[2023-07-04 18:20] VITALS: BP 131/71
== END 2023-07-04 18:23 | disposition home or self-care (01) ==
LOC: ED 17:03
DX: S00.01XA Abrasion of scalp, initial encounter (principal); W01.10XA Fall on same level from slipping, tripping and stumbling with subsequent striking against unspecified object, initial encounter; I11.0 Hypertensive heart disease with heart failure; I50.9 Heart failure, unspecified; J44.9 Chronic obstructive pulmonary disease, unspecified; E11.9 Type 2 diabetes mellitus without complications; F17.200 Nicotine dependence, unspecified, uncomplicated; Z79.899 Other long term (current) drug therapy; Z79.4 Long term (current) use of insulin; Z79.82 Long term (current) 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; Z79.84 Long term (current) use of oral hypoglycemic drugs
CPT/HCPCS: 70450; 99283-25

== ENCOUNTER 2023-10-18 18:55 | Inpatient (IN) | payer MEDICARE, OTHER ==
[~2023-10-18] VITALS: Ht 167.6 cm; Wt 94.9 kg
[~2023-10-18 18:55] MED LIST changes: +PEPCID40 MG PO; -ZANTAC-360 (FAM20 MG PO
[2023-10-18 19:20] LABS: BASOPHILS 0.5 % (0-2); EOSINOPHILS 0.4 % (0-6); HEMATOCRIT 39.2 % (35.0-50.0); HEMOGLOBIN 12.8 g/dL (12.0-18.0); LYMPHOCYTES 9.1 % (24-44); MCH 25.5 (27-36); MCHC 32.6 g/dl (30-36); MCV 78.2 fl (81-99); MONOCYTES 5.7 % (0-12); NEUTROPHILS 84.3 % (39-80); PLATELET COUNT 269 K/uL (140-440); RBC 5.02 M/ul (4.3-5.7); RDW 16.5 (10.5-15.0)
[2023-10-18] MEDS ORDERED: FUROSEMIDE 100 MG/10 ML VIAL IV ONE (19:30)
[2023-10-18] MEDS ORDERED: ALLOPURINOL100 MG PO (19:36)
[2023-10-18] MEDS ORDERED: TRULICITY0.75 MG/0. SQ (19:39)
[2023-10-18 19:51] LABS: ALBUMIN 3.7 g/dL (3.4-5.0); ALBUMIN/GLOBULIN RATIO 0.86 (1.1-2.4); ANION GAP 16.1 (7-21); BILIRUBIN, TOTAL 0.3 ng/dL (0.2-1.0); BUN/CREATININE RATIO 11.53 (6.0-28.6); CALCIUM 8.8 mg/dL (8.5-10.1); CREATININE, SERUM 1.3 mg/dL (0.70-1.30); MAGNESIUM 1.4 mg/dL (1.8-2.4); POTASSIUM 4.1 mmol/L (3.5-5.1)
[2023-10-18] MEDS ORDERED: NITROGLYCERIN PACKET TOP ONE (20:30)
[2023-10-18 21:14] LABS: INFLUENZA B NAA NEGATIVE (NEGATIVE); RESPIRATORY SYNCYTIAL VIR NAA NEGATIVE (NEGATIVE)
[2023-10-18] MEDS ORDERED: ALBUTEROL/IPRATROPIUM 3 ML NEB INH ONE (21:15)
[2023-10-18 21:16] LABS: INR 0.91 (0.80-1.30); PROTIME 11.9 Sec (11.2-14.2)
[2023-10-18] MEDS ORDERED: ondansetron HCL 4 MG/2 ML VIAL IV PRN (21:30)
[2023-10-18] MEDS ORDERED: ACETAMINOPHEN 325 MG TAB PO PRN (21:30)
[2023-10-18] MEDS ORDERED: AZITHROMYCIN/DEXTROSE 500 MG/250 ML BAG IV ONE (21:30)
[2023-10-18] MEDS ORDERED: CEFTRIAXONE/SODIUM CHLORIDE 2 GM/100 ML PIGGYBACK IV ONE (21:30)
[2023-10-18] MEDS ORDERED: methylPREDNISolone SOD SUCC 125 MG/2 ML VIAL IV ONE (21:30)
[2023-10-18] MEDS ORDERED: MAGNESIUM SULFATE 2 GM/50 ML BAG IV ONE (21:30)
[2023-10-18] MEDS ORDERED: methylPREDNISolone SOD SUCC 40 MG/ML VIAL IV SCH (22:00)
[2023-10-18 22:11] VITALS: BP 149/66
[2023-10-19] VITALS (7 sets, daily range): BP systolic 110–157; BP diastolic 72–95
[2023-10-19 05:24] LABS: BASOPHILS 0.2 % (0-2); HEMATOCRIT 36.4 % (35.0-50.0); HEMOGLOBIN 11.7 g/dL (12.0-18.0); LYMPHOCYTES 2.7 % (24-44); MCH 25.4 (27-36); MCHC 32.2 g/dl (30-36); MCV 79.1 fl (81-99); MONOCYTES 0.7 % (0-12); NEUTROPHILS 96.4 % (39-80); PLATELET COUNT 241 K/uL (140-440); RDW 16.2 (10.5-15.0)
[2023-10-19 05:40] LABS: ALBUMIN 3.3 g/dL (3.4-5.0); ALBUMIN/GLOBULIN RATIO 0.75 (1.1-2.4); ANION GAP 17.6 (7-21); BILIRUBIN, TOTAL 0.3 ng/dL (0.2-1.0); BUN/CREATININE RATIO 12.05 (6.0-28.6); CALCIUM 8.7 mg/dL (8.5-10.1); CREATININE, SERUM 1.41 mg/dL (0.70-1.30); MAGNESIUM 1.9 mg/dL (1.8-2.4); POTASSIUM 4.6 mmol/L (3.5-5.1); PROTEIN, TOTAL 7.7 g/dL (6.4-8.2)
[2023-10-19] MEDS ORDERED: Insulin Regular, Human 100 UNIT/ML ML SUB-Q SCH ×2 (07:00→08:00)
[2023-10-19] MEDS ORDERED: IBLOOD GLUCOSE TEST STRIP 1 EA TEST XX PRN (07:45)
[2023-10-19] MEDS ORDERED: GLUCAGON,HUMAN RECOMBINANT 1 MG/ML VIAL SUB-Q PRN (07:45)
[2023-10-19] MEDS ORDERED: DEXTROSE 50% 50 ML SYR IV PRN ×2 (07:45)
[2023-10-19] MEDS ORDERED: DEXTROSE 5% 1,000 ML IV PRN (07:45)
[2023-10-19] MEDS ORDERED: IBLOOD GLUCOSE TEST STRIP 1 EA TEST VI SCH (08:00)
[2023-10-19] MEDS ORDERED: AZITHROMYCIN 500 MG in DEXTROSE 5% 250 ML IV SCH ×2 (09:00→11:40)
[2023-10-19] MEDS ORDERED: CEFTRIAXONE/SODIUM CHLORIDE 2 GM/100 ML PIGGYBACK IV SCH (09:00)
[2023-10-19] MEDS ORDERED: TRAZODONE HCL100 MG PO (10:27)
[2023-10-19] MEDS ORDERED: CALCITONIN-SAL3.7 ML NAS (10:28)
[2023-10-19] MEDS ORDERED: VENTOLIN HFA18 GM INH (10:30)
[2023-10-19] MEDS ORDERED: ASPIRIN 81 MG TABEC PO SCH (11:26)
[2023-10-19] MEDS ORDERED: allopurinoL 100 MG TAB PO SCH (11:26)
[2023-10-19] MEDS ORDERED: AMLODIPINE BESYLATE 10 MG TAB PO SCH (11:26)
[2023-10-19] MEDS ORDERED: ATORVASTATIN 40 MG TAB PO SCH (11:27)
[2023-10-19] MEDS ORDERED: CALCITONIN SALMON NAS SCH (11:29)
[2023-10-19] MEDS ORDERED: SERTRALINE HCL 100 MG TAB PO SCH (11:30)
[2023-10-19] MEDS ORDERED: METOPROLOL TARTRATE 100 MG TAB PO SCH (11:30)
[2023-10-19] MEDS ORDERED: CEFTRIAXONE/SODIUM CHLORIDE 1 GM/100 ML PIGGYBACK IV SCH (11:39)
[2023-10-19] MEDS ORDERED: TRAZODONE HCL 100 MG TAB PO PRN (11:45)
[2023-10-19] MEDS ORDERED: ALBUTEROL/IPRATROPIUM 3 ML NEB INH SCH ×2 (12:00)
[2023-10-19] MEDS ORDERED: FUROSEMIDE 100 MG/10 ML VIAL IV SCH (13:00)
[2023-10-19] MEDS ORDERED: FAMOTIDINE 20 MG TAB PO SCH (21:00)
[2023-10-20] VITALS (8 sets, daily range): BP systolic 130–160; BP diastolic 60–90
[2023-10-20 05:26] LABS: BASOPHILS 0.4 % (0-2); EOSINOPHILS 0.1 % (0-6); HEMATOCRIT 35.8 % (35.0-50.0); HEMOGLOBIN 11.7 g/dL (12.0-18.0); MCH 25.6 (27-36); MCHC 32.6 g/dl (30-36); MCV 78.5 fl (81-99); MONOCYTES 6.4 % (0-12); NEUTROPHILS 87.1 % (39-80); PLATELET COUNT 237 K/uL (140-440); RBC 4.57 M/ul (4.3-5.7); RDW 15.8 (10.5-15.0)
[2023-10-20 05:31] LABS: ANION GAP 13.8 (7-21); BUN/CREATININE RATIO 21.85 (6.0-28.6); CREATININE, SERUM 1.51 mg/dL (0.70-1.30); POTASSIUM 4.8 mmol/L (3.5-5.1)
[2023-10-20] MEDS ORDERED: LEVOTHYROXINE SODIUM 75 MCG TAB PO SCH (06:00)
--- NOTE | 2023-10-20 11:55 | EKG ---
[facility] [address] [facility] [place] [address] Signed Normal sinus rhythm Abnormal QRS-T angle, consider primary T wave abnormality Abnormal ECG When compared with ECG of 06-MAR-2022 14:23, premature atrial complexes are no longer present Confirmed by Tj Waite MD ([id number]) on 10/20/2023 11:55:52 AM Electronically Signed By: TJ WAITE 10/20/23 1155 PATIENT NAME: NAZARIO BROWN BRANDON Electrocardiogram DATE OF : 55 PHYSICIAN: TJ WAITE REPORT #: [id number] REPORT IS CONFIDENTIAL AND NOT TO BE RELEASED WITHOUT AUTHORIZATION
[2023-10-21] VITALS (8 sets, daily range): BP systolic 50–161; BP diastolic 68–92
[2023-10-21 05:38] LABS: ANION GAP 9.5 (7-21); BUN/CREATININE RATIO 27.39 (6.0-28.6); CALCIUM 8.8 mg/dL (8.5-10.1); CREATININE, SERUM 1.46 mg/dL (0.70-1.30); POTASSIUM 4.5 mmol/L (3.5-5.1)
[2023-10-22] VITALS (10 sets, daily range): BP systolic 132–157; BP diastolic 60–84
[2023-10-22 05:42] LABS: ANION GAP 12.7 (7-21); BUN/CREATININE RATIO 29.37 (6.0-28.6); CALCIUM 9.2 mg/dL (8.5-10.1); CREATININE, SERUM 1.43 mg/dL (0.70-1.30); POTASSIUM 4.7 mmol/L (3.5-5.1)
[2023-10-22] MEDS ORDERED: BUDESONIDE 0.5 MG/2 ML VIAL INH ONE (11:30)
[2023-10-22] MEDS ORDERED: BUDESONIDE 0.5 MG/2 ML VIAL ONE (11:40)
[2023-10-22] MEDS ORDERED: FUROSEMIDE 40 MG/4 ML VIAL IV SCH (13:00)
[2023-10-22] MEDS ORDERED: ALBUTEROL/IPRATROPIUM 3 ML NEB INH PRN (19:45)
[2023-10-22] MEDS ORDERED: ALBUTEROL/IPRATROPIUM 3 ML NEB INH SCH (20:00)
[2023-10-22] MEDS ORDERED: BUDESONIDE 0.5 MG/2 ML VIAL INH SCH (20:00)
[2023-10-23 02:17] VITALS: BP 150/73
[2023-10-23 05:58] LABS: BASOPHILS 0.5 % (0-2); EOSINOPHILS 0.8 % (0-6); HEMATOCRIT 35.7 % (35.0-50.0); HEMOGLOBIN 11.8 g/dL (12.0-18.0); MCH 25.6 (27-36); MCHC 33.1 g/dl (30-36); MCV 77.4 fl (81-99); NEUTROPHILS 70.7 % (39-80); PLATELET COUNT 201 K/uL (140-440); RBC 4.61 M/ul (4.3-5.7)
[2023-10-23 06:00] VITALS: BP 157/80
[2023-10-23 06:01] VITALS: BP 157/80
[2023-10-23 06:11] LABS: ANION GAP 8.6 (7-21); BUN/CREATININE RATIO 22.29 (6.0-28.6); CALCIUM 8.9 mg/dL (8.5-10.1); CREATININE, SERUM 1.57 mg/dL (0.70-1.30); POTASSIUM 4.6 mmol/L (3.5-5.1)
[2023-10-23 09:46] VITALS: BP 11/65; BP 111/65
[2023-10-23 10:25] VITALS: BP 111/65
[2023-10-23] MEDS ORDERED: CEFDINIR300 MG PO (12:23)
[2023-10-23 13:37] VITALS: BP 141/71
[2023-10-23] MEDS ORDERED: FAMOTIDINE 20 MG TAB PO SCH (21:00)
== END 2023-10-23 13:45 | disposition home or self-care (01) | DRG 193 ==
LOC: ED 18:55 → MS 18:57
PROVIDERS: Family Medicine; ADMIT Internal Medicine; ATTEND Internal Medicine
DX: J18.9 Pneumonia, unspecified organism (principal); I50.33 Acute on chronic diastolic (congestive) heart failure; J96.01 Acute respiratory failure with hypoxia; N17.9 Acute kidney failure, unspecified; I13.0 Hypertensive heart and chronic kidney disease with heart failure and stage 1 through stage 4 chronic kidney disease, or unspecified chronic kidney disease; J44.0 Chronic obstructive pulmonary disease with (acute) lower respiratory infection; F17.210 Nicotine dependence, cigarettes, uncomplicated; E11.22 Type 2 diabetes mellitus with diabetic chronic kidney disease; N18.9 Chronic kidney disease, unspecified; J45.909 Unspecified asthma, uncomplicated; F41.9 Anxiety disorder, unspecified; Z79.899 Other long term (current) drug therapy; Z79.51 Long term (current) use of inhaled steroids; Z95.5 Presence of coronary angioplasty implant and graft; Z79.01 Long term (current) use of anticoagulants; Z79.4 Long term (current) use of insulin; Z79.82 Long term (current) 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; Z79.890 Hormone replacement therapy; Z79.84 Long term (current) use of oral hypoglycemic drugs; Z11.52 Encounter for screening for COVID-19
CPT/HCPCS: 36415; 71045; 71250; 80048; 80053; 83735; 83880; 84484; 85025; 85610; 86140; 87502; 93005; 93010; 93306; 94640; 94667; 94668; 94761; 94762; 96365; 96375; 96376; 99285-25; 99406; G0378; J0456; J0696; J1815; J1940; J2920; J2930; J3475; J7060; U0002

== ENCOUNTER 2025-01-19 05:31 | Emergency (ER) | payer MEDICARE, OTHER ==
[~2025-01-19] VITALS: Ht 167.6 cm; Wt 99.9 kg
[~2025-01-19 05:31] MED LIST changes: +ALLOPURINOL100 MG PO; +CALCITONIN-SAL3.7 ML NAS; +CEFDINIR300 MG PO; +TRULICITY0.75 MG/0. SQ
[2025-01-19 05:56] LABS: BASOPHILS 0.6 % (0-2); EOSINOPHILS 0.7 % (0-6); HEMATOCRIT 39.5 % (35.0-50.0); HEMOGLOBIN 13.3 g/dL (12.0-18.0); LYMPHOCYTES 22.5 % (24-44); MCHC 33.5 g/dl (30-36); MCV 80.4 fl (81-99); MONOCYTES 10.2 % (0-12); PLATELET COUNT 185 K/uL (140-440); RBC 4.91 M/ul (4.3-5.7); RDW 15.5 (10.5-15.0)
[2025-01-19] MEDS ORDERED: methylPREDNISolone SOD SUCC 125 MG/2 ML VIAL IV ONE (06:00)
[2025-01-19] MEDS ORDERED: ALBUTEROL/IPRATROPIUM 3 ML NEB INH ONE (06:00)
[2025-01-19] MEDS ORDERED: FUROSEMIDE 40 MG/4 ML VIAL IV ONE (06:15)
[2025-01-19 06:29] LABS: ALBUMIN/GLOBULIN RATIO 0.75 (1.1-2.4); ANION GAP 10.5 (7-21); BILIRUBIN, TOTAL 0.3 mg/dL (0.2-1.0); BUN/CREATININE RATIO 11.81 (6.0-28.6); CALCIUM 8.1 mg/dL (8.5-10.1); CREATININE, SERUM 2.37 mg/dL (0.70-1.30); MAGNESIUM 1.5 mg/dL (1.8-2.4); POTASSIUM 4.5 mmol/L (3.5-5.1)
[2025-01-19] MEDS ORDERED: MAGNESIUM OXIDE 400 MG TABLET PO ONE (06:45)
[2025-01-19] MEDS ORDERED: hydrALAZINE HCL 20 MG/ML VIAL IV ONE (06:45)
[2025-01-19 07:16] LABS: BILIRUBIN, URINE NEGATIVE (negative); BLOOD/HGB, URINE NEGATIVE (Negative); KETONE, URINE NEGATIVE (Negative); LEUK ESTERASE, URINE NEGATIVE (negative); NITRITE, URINE NEGATIVE (negative)
[2025-01-19 07:28] LABS: BACTERIA, URINE NONE SEEN /hpf (negative); CASTS, URINE NONE SEEN \\lpf; COLLECTION TYPE, URINE CLEAN CATCH; CRYSTALS, URINE NONE SEEN (0-1+); EPITHELIAL CELLS, URINE 0 /lpf (0-1+); RED BLOOD CELLS, URINE 0-1 /hpf (0-5); REFLEX CULTURE, URINE No (No); WHITE BLOOD CELLS, URINE 0-1 /HPF (0-5)
[2025-01-19] MEDS ORDERED: PREDNISONE20 MG PO (08:14)
[2025-01-19] MEDS ORDERED: VENTOLIN HFA18 GM INH (08:14)
[2025-01-19] MEDS ORDERED: IPRAT-ALBUT 0.5-3 ML INH (08:14)
[2025-01-19] MEDS ORDERED: NEBULIZER UNIT XX (08:14)
[2025-01-19 08:20] VITALS: BP 170/117
--- NOTE | 2025-01-19 13:39 | EKG ---
[facility] [address] [facility] [facility] [place] [address] \T\ T wave abnormality, consider inferolateral ischemia Abnormal ECG When compared with ECG of 18-OCT-2023 20:23, T wave inversion now evident in Inferior leads T wave inversion now evident in Lateral leads Confirmed by Ciro Stevens MD () on 01/19/2025 1:38:46 PM Electronically Signed By: CIRO STEVENS MD 01/19/25 1339 PATIENT NAME: NAZARIO BROWN Electrocardiogram DATE OF : 55 PHYSICIAN: CIRO STEVENS MD REPORT #: [id number] REPORT IS CONFIDENTIAL AND NOT TO BE RELEASED WITHOUT AUTHORIZATION
== END 2025-01-19 08:20 | disposition home or self-care (01) ==
LOC: ED 05:31
PROVIDERS: Internal Medicine
DX: J44.1 Chronic obstructive pulmonary disease with (acute) exacerbation (principal); I50.9 Heart failure, unspecified; E11.9 Type 2 diabetes mellitus without complications; I10 Essential (primary) hypertension; F17.200 Nicotine dependence, unspecified, uncomplicated; Z79.899 Other long term (current) drug therapy
CPT/HCPCS: 36415; 71045; 80053; 81001; 83735; 83880; 84443; 84484; 85025; 85379; 93005; 93010; 94640; 96374; 96375; 99285-25; J0360; J1938; J2919

== ENCOUNTER 2025-03-03 11:19 | Observation (INO) | payer MEDICARE, OTHER ==
[~2025-03-03] VITALS: Ht 167.6 cm; Wt 99.2 kg
[~2025-03-03 11:19] MED LIST changes: -AMLODIPINE BESY10 MG PO; +AMLODIPINE BESYL5 MG PO; +NEBULIZER UNIT XX
[2025-03-03 11:50] LABS: BASOPHILS 0.7 % (0.2-1.2); EOSINOPHILS 0.2 % (0.8-7.0); HEMATOCRIT 37.4 % (40.1-51.0); HEMOGLOBIN 11.8 g/dL (13.7-17.5); LYMPHOCYTES 24.8 % (21.8-53.1); MCH 26.5 PG (25.7-32.2); MCHC 31.6 g/dL (32.3-36.5); MCV 83.9 fL (79.0-92.2); MONOCYTES 8.2 % (5.3-12.2); NEUTROPHILS 65.3 % (34.0-67.9); PLATELET COUNT 250 K/uL (163-337); RBC 4.46 M/uL (4.63-6.08)
[2025-03-03 12:02] LABS: PARTIAL THROMBOPLASTIN TIME 29.9 Sec (22.9-41.3)
[2025-03-03 12:03] LABS: INR 0.92 (0.80-1.30); PROTIME 11.7 Sec (11.2-14.2)
[2025-03-03 12:18] LABS: ALBUMIN 2.5 g/dL (3.4-5.0); ALBUMIN/GLOBULIN RATIO 0.71 (1.1-2.4); ANION GAP 15.6 (7-21); BILIRUBIN, TOTAL 0.4 mg/dL (0.2-1.0); BUN/CREATININE RATIO 12.39 (6.0-28.6); CALCIUM 8.3 mg/dL (8.5-10.1); CREATININE, SERUM 2.34 mg/dL (0.70-1.30); POTASSIUM 5.6 mmol/L (3.5-5.1)
[2025-03-03] MEDS ORDERED: LACTATED RINGER'S 1,000 ML IV SCH (20:15)
[2025-03-03] MEDS ORDERED: DEXTROSE 50% 50 ML SYR IV PRN ×2 (20:15)
[2025-03-03] MEDS ORDERED: GLUCAGON,HUMAN RECOMBINANT 1 MG/ML VIAL SUB-Q PRN (20:15)
[2025-03-03] MEDS ORDERED: ACETAMINOPHEN 325 MG TAB PO PRN (20:15)
[2025-03-03] MEDS ORDERED: IBLOOD GLUCOSE TEST STRIP 1 EA TEST XX PRN (20:15)
[2025-03-03] MEDS ORDERED: POLYETHYLENE GLYCOL 3350 1 PACKET PO PRN (20:15)
[2025-03-03] MEDS ORDERED: DEXTROSE 5% 1,000 ML IV PRN (20:15)
[2025-03-03] MEDS ORDERED: ondansetron HCL 4 MG/2 ML VIAL IV PRN (20:15)
[2025-03-03 20:40] VITALS: BP 165/59
--- NOTE | 2025-03-03 20:40 | NUR ---
PT ARRIVAL TO ROOM 112 FROM ED. RECEIVED BEDSIDE REPORT FROM ED NURSE. VITALS STABLE, PT ALERT IN NO ACUTE DISTRESS OR PAIN. CALL [facility] IN REACH
[2025-03-03 20:57] LABS: CHOLESTEROL/HDL RATIO 1.8; TSH, 3RD GENERATION 5.82 uIU/mL (0.358-3.740)
[2025-03-03] MEDS ORDERED: IBLOOD GLUCOSE TEST STRIP 1 EA TEST VI SCH (21:00)
[2025-03-03] MEDS ORDERED: MELATONIN 3 MG TAB PO PRN (21:00)
[2025-03-03] MEDS ORDERED: INSULIN LISPRO 100 UNIT/ML ML SUB-Q SCH (21:00)
[2025-03-03] MEDS ORDERED: ATORVASTATIN 40 MG TAB PO SCH (21:00)
[2025-03-03 22:05] LABS: CREATININE, RANDOM URINE 130.66 mg/dL (NOT ESTABLISHED)
--- NOTE | 2025-03-03 22:45 | NUR ---
ADMISSION ASSESSMENT, EVENING MEDS. GIVEN SANDWICH BOX HE HAS NOT EATEN MUCH TODAY. ORIENTED TO PLAN OF CARE AND HOSPITAL ROOM. NO FURTHER NEEDS[facility]
[2025-03-03 23:22] VITALS: BP 165/59
[2025-03-04] VITALS (10 sets, daily range): BP systolic 122–168; BP diastolic 71–80
--- NOTE | 2025-03-04 01:10 | NUR ---
PT ALERT IN ROOM, WITH CHARGE NURSE. NO NEEDS, CALL [facility] IN REACH
--- NOTE | 2025-03-04 03:39 | NUR ---
PT ALERT IN ROOM, NO NEEDS PRESENTLY. CALL [facility]
--- NOTE | 2025-03-04 04:38 | NUR ---
PT RESTING WITH EYES CLOSED, RISE AND FALL OF CHEST OBSERVED. CALL [facility] INREACH
--- NOTE | 2025-03-04 05:18 | NUR ---
thyroid medication given-see emar. pt used urinal, 200 mls output noted. call light in reach.
[2025-03-04 05:35] LABS: BASOPHILS 0.6 % (0.2-1.2); EOSINOPHILS 0.4 % (0.8-7.0); HEMATOCRIT 35.6 % (40.1-51.0); LYMPHOCYTES 28.5 % (21.8-53.1); MCH 26.5 PG (25.7-32.2); MCHC 30.9 g/dL (32.3-36.5); MCV 85.8 fL (79.0-92.2); MONOCYTES 8.7 % (5.3-12.2); NEUTROPHILS 61.1 % (34.0-67.9); PLATELET COUNT 209 K/uL (163-337); RBC 4.15 M/uL (4.63-6.08)
[2025-03-04 05:51] LABS: INR 0.93 (0.80-1.30); PROTIME 12.1 Sec (11.2-14.2)
[2025-03-04 05:58] LABS: ALBUMIN 2.4 g/dL (3.4-5.0); ALBUMIN/GLOBULIN RATIO 0.71 (1.1-2.4); ANION GAP 12.4 (7-21); BILIRUBIN, TOTAL 0.4 mg/dL (0.2-1.0); BUN/CREATININE RATIO 13.9 (6.0-28.6); CALCIUM 8.1 mg/dL (8.5-10.1); CREATININE, SERUM 2.23 mg/dL (0.70-1.30); MAGNESIUM 1.6 mg/dL (1.8-2.4); POTASSIUM 5.4 mmol/L (3.5-5.1); PROTEIN, TOTAL 5.8 g/dL (6.4-8.2)
[2025-03-04] MEDS ORDERED: LEVOTHYROXINE SODIUM 75 MCG TAB PO SCH (07:00)
--- NOTE | 2025-03-04 07:34 | NUR ---
UR CLINICAL REVIEW: 2 MN FOR VERSAL[facility]-PER POLICE MANAGER MEETS OBS FOR ACUTE CVA WITH NEED FOR PT/OT EVAL MEDICARE OBS 03/03/25 @ 1120 ORDER MATCHES REG NO AUTH REQUIRED PER MEDICARE GUIDELINES DISCHARGE PER PT/OT RECOMMENDATION 03/05/25
[2025-03-04] MEDS ORDERED: ALBUTEROL/IPRATROPIUM 3 ML NEB INH SCH (08:00)
[2025-03-04] MEDS ORDERED: GABAPENTIN 300 MG CAP PO SCH (09:00)
[2025-03-04] MEDS ORDERED: MAGNESIUM OXIDE 400 MG TABLET PO ONE (09:00)
--- NOTE | 2025-03-04 09:07 | NUR ---
Patient assisted back to bed for echo study. Patient is alert and oriented x3, even gait noted. Patient is agitated with cares, he reports "I wish I had never called the ambulance". Education provided to patient regarding need for study, he reports his understanding.
--- NOTE | 2025-03-04 09:33 | NUR ---
ECHO WITH BUBBLE STUDY IS COMPLETE.
--- NOTE | 2025-03-04 09:47 | NUR ---
ALERT AND ORIENTED IN BED. STATES HE LIVES IN MOTOR HOME WITH STEPS TO GET INSIDE BUT DOES OK USING THEM. STATES HE LIVES WITH HIS SISTER WHO IS NOT WELL OFF PHYSICALLY. STATES HIS HOME HAS NO RUNNING WATER OR GAS. STATES HE DRIVES TO TRUCK STOP TO SHOWER AFTER HE COLLECTS AND RECYCLES CANS TO PAY FOR SHOWER. SISTER SMITH, PHONE NUMBER IS [phone]. HAS A WALKER, CANE AND CPAP. STATES HE DRIVES, HIS SISTER IS UNABLE TO DRIVE. STATES HE HAS SNAP BENEFITS BUT DOES NOT DISCLOSE AMOUNT. STATES HE CAN AFFORD MEDICATIONS, BARELY. PLAN TO CREATE DC PLAN PENDING PT/OT BREANA.
--- NOTE | 2025-03-04 10:08 | NUR ---
PT IN BED, RESPIRATORY THERAPIST WAS JUST FINISHING A BREATHING TREATMENT. GOT PT FRESH ICE, AND FRESH ICE WATER. CALL LIGHT WITHIN REACH.
--- NOTE | 2025-03-04 10:19 | NUR ---
PATIENT WAS UNSURE WHAT HIS MEDICAID BENEFITS ARE. CALLED AND SPOKE WITH NICO ARANDA AT [facility]. PATIENT HAS SNAP BENEFITS AND QMB. NO OTHER SERVICES.
[2025-03-04] MEDS ORDERED: PHARMACY RENAL DOSE ADJUSTMENT 1 DOSE MISC PO SCH (12:00)
--- NOTE | 2025-03-04 13:00 | NUR ---
Patient in bed resting, easily wakes to verbal stimuli. Patient's speech is clear and appropriate. Patient's strength is equal and strong. Patient denies pain at this time. Personal supplies and call light within reach.
[2025-03-04] MEDS ORDERED: FUROSEMIDE20 MG PO (16:38)
[2025-03-04] MEDS ORDERED: GABAPENTIN300 MG PO (16:44)
[2025-03-04] MEDS ORDERED: IRBESARTAN75 MG PO (16:44)
[2025-03-04] MEDS ORDERED: PANTOPRAZOLE SO40 MG PO (16:45)
--- NOTE | 2025-03-04 17:24 | NUR ---
Patient sitting up on edge of bed, alert and oriented x3, no cute distress. Patient denies pain at this time. No current needs, personal supplies and call light within reach.
--- NOTE | 2025-03-04 17:52 | NUR ---
PT SITTING ON THE SIDE OF THE BED, AWAKE AND ALERT. PT HAD JUST FINISHED DINNER AND HAD JUST URINATED. PT HAS FRESH CUP OF ICE AND ICE WATER, CALL LIGHT WITHIN REACH. ROOM PICKED UP AND DINNER TRAY OUT OF ROOM. PT REPORTS NEEDING NOTHING ELSE AT THIS TIME.
--- NOTE | 2025-03-04 19:07 | EKG ---
[facility] [address] [facility] [place] [address] Signed Sinus tachycardia with premature atrial complexes T wave abnormality, consider lateral ischemia Abnormal ECG When compared with ECG of 19-JAN-2025 05:36, premature atrial complexes are now present T wave inversion no longer evident in Inferior leads T wave inversion less evident in Lateral leads Confirmed by Noemi Lopez DO ([id number]) on 03/04/2025 7:07:44 PM Electronically Signed By: NOEMI LOPEZ DO 03/04/25 1907 PATIENT NAME: NAZARIO BROWN Electrocardiogram DATE OF : 55 PHYSICIAN: NOEMI LOPEZ DO REPORT #: [id number] REPORT IS CONFIDENTIAL AND NOT TO BE RELEASED WITHOUT AUTHORIZATION
--- NOTE | 2025-03-04 19:15 | NUR ---
REPORT RECEIVED FROM CLARISSA PEDERSEN. pt RESTING IN THE BED. BOARD UPDATED. NO OTHER NEEDS AT THIS TIME. CALL LIGHT WITHIN REACH.
[2025-03-04] MEDS ORDERED: BUDESONIDE 0.5 MG/2 ML VIAL INH SCH (20:00)
--- NOTE | 2025-03-04 20:40 | NUR ---
ASSESSMENT AND VITAL SIGNS DONE. BG CHECKED WITH A RESULT OF 191. SS INSULIN ADMINISTERED. pt REQUESTED COFFEE. COFFEE GIVEN. WATER AND ICE CHIPS REFRESHED. IV ASSESSED, WNL. NO NEW DEFICITS AT THIS TIME. pt A&O X4. pt DENIES ANY OTHER NEEDS AT THIS TIME. CALL LIGHT WITHIN REACH.
--- NOTE | 2025-03-04 23:46 | NUR ---
pt CALLED TO USE THE BR. SBA WITH THE IV POLE. pt HAD A BM. pt BACK TO BED. pt DENIES ANY OTHER NEEDS AT THIS TIME. CALL LIGHT WITHIN REACH. pt REFUSES SCD'S.
--- NOTE | 2025-03-05 00:35 | NUR ---
pt SITTING ON THE EDGE OF THE BED. pt DENIES ANY OTHER NEEDS AT THIS TIME. CALL LIGHT WITHIN REACH.
[2025-03-05 01:54] VITALS: BP 179/76
--- NOTE | 2025-03-05 01:57 | NUR ---
DELIVERY MAN OBTAINED VITALS AND I&O. PT STATES NO NEEDS AT THIS TIME. CALL LIGHT WITHIN REACH.
--- NOTE | 2025-03-05 03:50 | NUR ---
pt RESTING IN THE BED WITH EYES CLOSED. RR EVEN AND UNLABORED. CALL LIGHT WITHIN REACH.
[2025-03-05 05:12] VITALS: BP 150/76
--- NOTE | 2025-03-05 05:13 | NUR ---
SENIOR NAVAL PARACHUTIST OBTAINED VITALS AND I&O. PT STATES NO NEEDS AT THIS TIME. CALL LIGHT WITHIN REACH.
--- NOTE | 2025-03-05 05:21 | NUR ---
IN RM TO ADMINISTER SCHEDULED MEDS. VITAL SIGNS DONE. pt DENIES ANY OTHER NEEDS AT THIS TIME. CALL LIGHT WITHIN REACH.
[2025-03-05 05:25] LABS: BASOPHILS 0.7 % (0.2-1.2); EOSINOPHILS 0.3 % (0.8-7.0); HEMATOCRIT 34.9 % (40.1-51.0); HEMOGLOBIN 10.6 g/dL (13.7-17.5); LYMPHOCYTES 26.4 % (21.8-53.1); MCH 25.8 PG (25.7-32.2); MCHC 30.4 g/dL (32.3-36.5); MCV 84.9 fL (79.0-92.2); MONOCYTES 9.2 % (5.3-12.2); NEUTROPHILS 62.7 % (34.0-67.9); PLATELET COUNT 197 K/uL (163-337); RBC 4.11 M/uL (4.63-6.08)
[2025-03-05 05:35] LABS: ANION GAP 10.3 (7-21); BUN/CREATININE RATIO 13.7 (6.0-28.6); CALCIUM 8.6 mg/dL (8.5-10.1); CREATININE, SERUM 1.97 mg/dL (0.70-1.30); POTASSIUM 5.3 mmol/L (3.5-5.1)
[2025-03-05] MEDS ORDERED: LEVOTHYROXINE SODIUM 100 MCG TAB PO SCH (07:00)
--- NOTE | 2025-03-05 07:15 | NUR ---
RECIEVED REPORT FROM SLAVA WE[facility]. PT AWAKE IN BED, STATES NO CURRENT NEEDS, CALL LIGHT WITHIN REACH.
[2025-03-05] MEDS ORDERED: ASPIRIN 81 MG CHEW PO SCH (08:00)
--- NOTE | 2025-03-05 08:03 | NUR ---
PT IS AWAKE AND ALERT IN BED. CHANGED WHITE BOARD, GOT FRESH WATER AND COFFEE FOR PT. COMPLETED BLOOD GLUCOSE TEST. CALL LIGHT WITHIN REACH.
--- NOTE | 2025-03-05 08:39 | NUR ---
PATIENT SITTING UP ON EDGE OF BED AT THIS TIME. ENTERPRISE RESOURCE ANALYST ASSISTED PATIENT TO BATHROOM AND THEN BACK TO EDGE OF BED. CALL LIGHT JOVITA REACH, NO FURTHER NEEDS AT THIS TIME.
[2025-03-05 08:54] VITALS: BP 137/74
--- NOTE | 2025-03-05 08:56 | NUR ---
PT WAS LAYING ON BED, THE IV ALARM KEPT GOING OFF. I SILENCED IT FOR VITALS, BUT INFORMED HIS NURSE AFTER - CALL LIGHT WITHIN REACH. PT WATCHING TV. PT HAS FRESH ICE IN A CUP AND FRESH COFFEE, REPORTS NEEDING NOTHING ELSE AT THIS TIME.
[2025-03-05] MEDS ORDERED: CLOPIDOGREL BISULFATE 75 MG TAB PO SCH (09:00)
[2025-03-05] MEDS ORDERED: AMLODIPINE BESYLATE 5 MG TAB PO SCH (09:00)
--- NOTE | 2025-03-05 09:15 | NUR ---
INTO SEE PATIENT. PATIENT LIVES IN TRAILER WITH SISTER. HE WILL NEED A TAXI RIDE AT TIME OF DISCHARGE. NO FUTHER CM NEEDS.
[2025-03-05] MEDS ORDERED: CLOPIDOGREL75 MG PO (10:18)
[2025-03-05] MEDS ORDERED: LIPITOR40 MG PO (10:18)
[2025-03-05] MEDS ORDERED: ASPIRIN81 MG PO (10:19)
[2025-03-05] MEDS ORDERED: LEVOTHYROXINE100 MCG PO (10:21)
[2025-03-05 10:27] VITALS: BP 157/81
[2025-03-05] MEDS ORDERED: IPRAT-ALBUT 0.5-3 ML INH (10:34)
--- NOTE | 2025-03-05 10:34 | NUR ---
MED REC COMPLETE
--- NOTE | 2025-03-05 10:40 | NUR ---
Héctor is unhappy with life. 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 He says he has been denied services from [facility], [facility] and [address] I offered prayers for strength and hope in the challenges he is facing in the hospital and out. He seemed to be less agitated and more relaxed after our lengthy visit.
--- NOTE | 2025-03-05 11:20 | NUR ---
PT DRESSES SELF IN OWN CLOTHES. DC PACKET AND EDUCATION INCLUDING STROKE PREVENTION EDUCATION GIVEN TO PT. PT VERBALIZES UNDERSTANDING, STATES ALL QUESTIONS HAVE BEEN ANSWERED. PT LEAVING WITH ALL PERSONAL BELONGINGS. PT WHEELED TO FRONT OF BUILDING BY NURSING PERSONEL.
[2025-03-05 14:14] LABS: CREATININE,URINE - PER VOLUME 136 mg/dL (()); HOURS COLLECTED Not Provided hr (()); TOTAL VOLUME Not Provided mL (()); URINE UREA NITROGEN - MG/DL 505 mg/dL (())
== END 2025-03-05 11:20 | disposition home or self-care (01) ==
LOC: ED 11:19 → MS 11:20
PROVIDERS: Emergency Medicine; ADMIT Student in an Organized Health Care Education/Training Program; ATTEND Student in an Organized Health Care Education/Training Program
DX: I63.9 Cerebral infarction, unspecified (principal); I11.0 Hypertensive heart disease with heart failure; I50.9 Heart failure, unspecified; J44.9 Chronic obstructive pulmonary disease, unspecified; I25.10 Atherosclerotic heart disease of native coronary artery without angina pectoris; E11.9 Type 2 diabetes mellitus without complications; Z95.5 Presence of coronary angioplasty implant and graft
CPT/HCPCS: 36415; 70450; 70544; 70551; 71045; 80048; 80053; 80061; 82570; 83036; 83735; 83880; 84300; 84443; 84484; 84550; 85025; 85610; 85730; 93005; 93010; 93306; 93880; 94640; 94668; 94760; 97161; 97165; 97530; 97535; A9270; G0378; J1815; J7121

== ENCOUNTER 2025-03-20 00:11 | Emergency (ER) | payer MEDICARE, OTHER ==
[~2025-03-20] VITALS: Ht 167.6 cm; Wt 101.6 kg
[~2025-03-20 00:11] MED LIST changes: +ASPIRIN81 MG PO; +FUROSEMIDE20 MG PO; +GABAPENTIN300 MG PO; +IRBESARTAN75 MG PO; +LEVOTHYROXINE100 MCG PO; +LIPITOR40 MG PO; +PANTOPRAZOLE SO40 MG PO
[2025-03-20] MEDS ORDERED: MORPHINE SULFATE 4 MG/ML VIAL IV ONE (00:30)
[2025-03-20 00:50] LABS: BASOPHILS 0.4 % (0.2-1.2); EOSINOPHILS 1.0 % (0.8-7.0); LYMPHOCYTES 13.4 % (21.8-53.1); MCH 26.9 PG (25.7-32.2); MCHC 31.3 g/dL (32.3-36.5); MCV 86.0 fL (79.0-92.2); MONOCYTES 6.6 % (5.3-12.2); NEUTROPHILS 77.4 % (34.0-67.9); RBC 4.84 M/uL (4.63-6.08)
[2025-03-20 01:05] LABS: ALT (SGPT) 16.0 U/L (14-59); AST (SGOT) 17.0 U/L (15-37); GLOMERULAR FILTRATION RATE,EST 33.0 mL/min (>60); PROTEIN, TOTAL 6.7 g/dL (6.4-8.2); UREA NITROGEN 27.0 mg/dL (7-18)
[2025-03-20] MEDS ORDERED: ONDANSETRON ODT8 MG PO (02:19)
[2025-03-20] MEDS ORDERED: HYOSCYAMINE0.125 M2 PO (02:23)
[2025-03-20] MEDS ORDERED: ONDANSETRON 4 MG HOME.PACK SL ONE (02:30)
[2025-03-20 02:37] VITALS: BP 138/78
== END 2025-03-20 02:38 | disposition home or self-care (01) ==
LOC: ED 00:11
PROVIDERS: Family Medicine
DX: A05.9 Bacterial foodborne intoxication, unspecified (principal); E11.9 Type 2 diabetes mellitus without complications; I11.0 Hypertensive heart disease with heart failure; I50.9 Heart failure, unspecified; J44.89 Other specified chronic obstructive pulmonary disease; F17.200 Nicotine dependence, unspecified, uncomplicated; Z95.5 Presence of coronary angioplasty implant and graft; Z79.01 Long term (current) use of anticoagulants; Z79.82 Long term (current) 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; Z79.890 Hormone replacement therapy; Z79.4 Long term (current) use of insulin; Z79.84 Long term (current) use of oral hypoglycemic drugs; Z79.51 Long term (current) use of inhaled steroids; Z79.899 Other long term (current) drug therapy
CPT/HCPCS: 36415; 74176; 80053; 83690; 85025; 96374; 96375; 99284-25; A9270; J2270; J2405

== ENCOUNTER 2025-04-30 21:29 | Emergency (ER) | payer MEDICARE, OTHER ==
[~2025-04-30] VITALS: Ht 167.6 cm; Wt 101.6 kg
[~2025-04-30 21:29] MED LIST changes: +HYOSCYAMINE0.125 M2 PO; +ONDANSETRON ODT8 MG PO
[2025-04-30 22:23] LABS: BASOPHILS 0.5 % (0.2-1.2); EOSINOPHILS 1.0 % (0.8-7.0); LYMPHOCYTES 20.6 % (21.8-53.1); MCH 26.8 PG (25.7-32.2); MCHC 31.9 g/dL (32.3-36.5); MCV 83.8 fL (79.0-92.2); MONOCYTES 8.8 % (5.3-12.2); NEUTROPHILS 68.1 % (34.0-67.9); RBC 4.26 M/uL (4.63-6.08)
[2025-04-30 22:44] LABS: ALT (SGPT) 10.0 U/L (14-59); AST (SGOT) 12.0 U/L (15-37); GLOMERULAR FILTRATION RATE,EST 27.0 mL/min (>60); PROTEIN, TOTAL 6.6 g/dL (6.4-8.2); UREA NITROGEN 23.0 mg/dL (7-18)
[2025-04-30] MEDS ORDERED: LACTATED RINGER'S 1,000 ML IV ONE (23:00)
[2025-04-30] MEDS ORDERED: Insulin Regular, Human 100 UNIT/ML ML SUB-Q ONE (23:00)
[2025-04-30 23:10] LABS: BLOOD/HGB, URINE NEGATIVE (Negative); KETONE, URINE NEGATIVE (Negative); LEUK ESTERASE, URINE NEGATIVE (negative); NITRITE, URINE NEGATIVE (negative)
[2025-04-30 23:15] LABS: EPITHELIAL CELLS, URINE SQUAMOUS 1+ /lpf (0-1+)
[2025-04-30 23:16] LABS: BACTERIA, URINE RARE /hpf (negative); CASTS, URINE NONE SEEN \\lpf; CRYSTALS, URINE NONE SEEN (0-1+); REFLEX CULTURE, URINE No (No)
[2025-05-01] MEDS ORDERED: INSULIN LISPRO PROTAMIN SUB-Q ONE (01:00)
[2025-05-01] MEDS ORDERED: LISPRO SUB-Q ONE (01:00)
[2025-05-01] MEDS ORDERED: TRIMETHOPRIM/SULFAMETHOXAZOLE 1 EA TAB PO ONE (01:15)
[2025-05-01] MEDS ORDERED: INSULIN NPH HUM/REG INSULIN HM 100 UNIT/ML ML SUB-Q ONE (01:15)
[2025-05-01 02:24] VITALS: BP 148/79
--- NOTE | 2025-05-01 23:14 | EKG ---
[facility] [address] [facility] [place] [address] Signed Sinus tachycardia T wave abnormality, consider lateral ischemia Abnormal ECG When compared with ECG of 03-MAR-2025 11:29, premature atrial complexes are no longer present T wave inversion more evident in Lateral leads Confirmed by Ciro Stevens MD () on 05/01/2025 11:13:56 PM Electronically Signed By: CIRO STEVENS MD 05/01/25 2314 PATIENT NAME: NAZARIO BROWN Electrocardiogram DATE OF : 55 PHYSICIAN: CIRO STEVENS MD REPORT #: [id number] REPORT IS CONFIDENTIAL AND NOT TO BE RELEASED WITHOUT AUTHORIZATION
[2025-05-02] MEDS ORDERED: HUMULIN 70100 UNIT/1 SUB-Q (11:30)
== END 2025-05-01 02:25 | disposition home or self-care (01) ==
LOC: ED 21:29
PROVIDERS: Internal Medicine
DX: E10.65 Type 1 diabetes mellitus with hyperglycemia (principal); I11.0 Hypertensive heart disease with heart failure; I50.9 Heart failure, unspecified; F17.200 Nicotine dependence, unspecified, uncomplicated; Z79.899 Other long term (current) drug therapy; Z79.84 Long term (current) use of oral hypoglycemic drugs
CPT/HCPCS: 36415; 71045; 80053; 81001; 83880; 84484; 85025; 93005; 93010; 99284-25; J1815; J7121

== ENCOUNTER 2025-05-02 10:59 | Emergency (ER) | payer MEDICARE, OTHER ==
[~2025-05-02] VITALS: Ht 167.6 cm; Wt 101.6 kg
[2025-05-02] MEDS ORDERED: HUMULIN 70100 UNIT/1 SUB-Q (11:30)
[2025-05-02 11:32] VITALS: BP 151/104
== END 2025-05-02 11:33 | disposition home or self-care (01) ==
LOC: ED 10:59
DX: Z76.0 Encounter for issue of repeat prescription (principal); E11.9 Type 2 diabetes mellitus without complications; I11.0 Hypertensive heart disease with heart failure; I50.9 Heart failure, unspecified; I25.10 Atherosclerotic heart disease of native coronary artery without angina pectoris; J44.89 Other specified chronic obstructive pulmonary disease; F17.200 Nicotine dependence, unspecified, uncomplicated; Z59.10 Inadequate housing, unspecified; Z95.5 Presence of coronary angioplasty implant and graft; Z86.73 Personal history of transient ischemic attack (TIA), and cerebral infarction without residual deficits; Z79.4 Long term (current) use of insulin; Z79.84 Long term (current) use of oral hypoglycemic drugs; Z79.51 Long term (current) use of inhaled steroids; Z79.890 Hormone replacement therapy; Z79.01 Long term (current) use of anticoagulants; Z79.899 Other long term (current) drug therapy
CPT/HCPCS: 99281

== ENCOUNTER 2025-07-13 11:45 | Emergency (ER) | payer MEDICARE, OTHER ==
[~2025-07-13] VITALS: Ht 167.6 cm; Wt 102.0 kg
--- OUTSIDE RECORDS SUMMARY | ~2025-07-13 | XMS | Continuity of Care Document ---
Demographics + + + | Address | [address] [facility] [address] | | | [place] [id number] | + + + | Preferred Language | Unknown | + + + | Marital Status | | + + + | Scientology Affiliation | Unknown | + + + | Race | White | + + + | Ethnic Group | Not or | + + + Author + + + | Author | [facility] | + + + | Organization | [facility] | + + + | Address | [address] | | | [place] [address] | + + + | Phone | | + + + Care Team Providers + + + + | Care Sharepoint Administrator Name | Role | Phone | + + + + Unavailable | Unavailable | + + + + Unavailable | Unavailable | + + + + Allergies No information. Encounters No information. Functional Status No information. Immunizations + + + + | date | description | facility | + + + + | (no date) | No vaccine administered | [facility] | | | | [facility] | + + + + Medications + + + + | date | description | facility | + + + + | (no date) | FAMOTIDINE | [facility] | | | | [facility] | + + + + | (no date) | famotidine 40 MG Oral | [facility] | | | Tablet [Pepcid] | [facility] | + + + + | (no date) | HUM INSULIN NPH/REG | [facility] | | | INSULIN HM | [facility] | + + + + | 2025-05-02 00:00 | HUM INSULIN NPH/REG | [facility] | | | INSULIN HM | [facility] | + + + + | (no date) | insulin isophane, human 70 | [facility] | | | UNT/ML / insulin, regular, | [facility] | | | human | | + + + + | 2025-05-02 00:00 | insulin isophane, human 70 | [facility] | | | UNT/ML / insulin, regular, | [facility] | | | human | | + + + + | (no date) | 120 ACTUAT albuterol 0.1 | [facility] | | | MG/ACTUAT / ipratropium | [facility] | | | bromide 0.0 | | + + + + | (no date) | IPRATROPIUM/ALBUTEROL | [facility] | | | SULFATE | [facility] | + + + + | (no date) | 120 ACTUAT budesonide 0.08 | [facility] | | | MG/ACTUAT / formoterol | [facility] | | | fumarate 0 | | + + + + | (no date) | BUDESONIDE/FORMOTEROL | [facility] | | | FUMARATE | [facility] | + + + + | (no date) | IPRATROPIUM/ALBUTEROL | [facility] | | | SULFATE | [facility] | + + + + | (no date) | albuterol 0.833 MG/ML / | [facility] | | | ipratropium bromide 0.167 | [facility] | | | MG/ML Inha | | + + + + | (no date) | 30 ACTUAT fluticasone | [facility] | | | furoate 0.1 MG/ACTUAT / | [facility] | | | umeclidinium 0 | | + + + + | (no date) | | [facility] | | | Fluticasone/Umeclidin/Vilan | [facility] | | | ter | | + + + + | (no ) | AMLODIPINE BESYLATE | [facility] | | | | [facility] | + + + + | (no date) | amlodipine 5 MG Oral | [facility] | | | Tablet | [facility] | + + + + | (no date) | LISINOPRIL | [facility] | | | | [facility] | + + + + | (no date) | lisinopril 40 MG Oral | [facility] | | | Tablet | [facility] | + + + + | (no date) | IRBESARTAN | [facility] | | | | [facility] | + + + + | (no date) | irbesartan 75 MG Oral | [facility] | | | Tablet | [facility] | + + + + | (no date) | Insulin NPH Hum/Reg | [facility] | | | Insulin Hm | [facility] | + + + + | (no date) | insulin isophane, human 70 | [facility] | | | UNT/ML / insulin, regular, | [facility] | | | human | | + + + + | (no date) | ATORVASTATIN CALCIUM | [facility] | | | | [facility] | + + + + | (no date) | atorvastatin 80 MG Oral | [facility] | | | Tablet | [facility] | + + + + | (no date) | ASPIRIN | [facility] | | | | [facility] | + + + + | (no date) | aspirin 81 MG Delayed | [facility] | | | Release Oral Tablet | [facility] | + + + + | (no date) | CLOPIDOGREL BISULFATE | [facility] | | | | [facility] | + + + + | (no date) | clopidogrel 75 MG Oral | [facility] | | | Tablet | [facility] | + + + + | (no date) | FENOFIBRATE,MICRONIZED | [facility] | | | | [facility] | + + + + | (no date) | fenofibrate 134 MG Oral | [facility] | | | Capsule | [facility] | + + + + | (no date) | FUROSEMIDE | [facility] | | | | [facility] | + + + + | (no ) | furosemide 20 MG Oral | [facility] | | | Tablet | [facility] | + + + + | (no ) | GABAPENTIN | [facility] | | | | [facility] | + + + + | (no ) | gabapentin 300 MG Oral | [facility] | | | Capsule | [facility] | + + + + | (no date) | PANTOPRAZOLE SODIUM | [facility] | | | | [facility] | + + + + | (no date) | pantoprazole 40 MG Delayed | [facility] | | | Release Oral Tablet | [facility] | + + + + | (no date) | HYDROCHLOROTHIAZIDE | [facility] | | | | [facility] | + + + + | (no date) | hydrochlorothiazide 12.5 | [facility] | | | MG Oral Tablet | [facility] | + + + + | (no ) | ATORVASTATIN CALCIUM | [facility] | | | | [facility] | + + + + | (no date) | atorvastatin 40 MG Oral | [facility] | | | Tablet | [facility] | + + + + | (no date) | TRAZODONE HCL | [facility] | | | | [facility] | + + + + | (no date) | trazodone hydrochloride | [facility] | | | 100 MG Oral Tablet | [facility] | + + + + | (no date) | ALBUTEROL SULFATE | [facility] | | | | [facility] | + + + + | (no date) | [id number] 200 ACTUAT | [facility] | | | albuterol 0.09 MG/ACTUAT | [facility] | | | Metered Dose I | | + + + + | (no date) | METFORMIN HCL | [facility] | | | | [facility] | + + + + | (no date) | metformin hydrochloride | [facility] | | | 1000 MG Oral Tablet | [facility] | + + + + | (no date) | HYDRALAZINE HCL | [facility] | | | | [facility] | + + + + | (no date) | hydralazine hydrochloride | [facility] | | | 100 MG Oral Tablet | [facility] | + + + + | (no date) | LEVOTHYROXINE SODIUM | [facility] | | | | [facility] | + + + + | (no date) | levothyroxine sodium 0.075 | [facility] | | | MG Oral Tablet | [facility] | + + + + | (no date) | 100 ACTUAT Beclomethasone | [facility] | | | Dipropionate 0.08 MG/ACTUAT | [facility] | | | Metere | | + + + + | (no date) | BECLOMETHASONE | [facility] | | | DIPROPIONATE | [facility] | + + + + Problems + + + + | date | description | facility | + + + + | 2025-05-01 00:00 | Diabetes 1.5, 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 Results/Labs +--------+--------+ +---------+--------+---------+ | test | date | facility | value | unit | notes | +--------+--------+ +---------+--------+---------+ + + | Result panel 1 | + + + + + +-------+ + + | Serum or | 2025-04-30 | | 3.3 | (missing) | (missing) | | plasma | 22:16 | [facility] | | | | | albumin | [facility] | measurement | | [facility] | | | | (mass/volume | | [facility] | | | | | ) | | | | | | + + + +-------+ + + + + | Result panel 2 | + + + + + +-------+ + + | Serum | 2025-04-30 | | 3.3 | (missing) | (missing) | | globulin | 22:16 | [facility] | | | | | measurement | [facility] | | | | (mass/volume | | [facility] | | | | ) | | [facility] | | | | + + + +-------+ + + + + | Result panel 3 | + + + + + +--------+ + + | Serum or | 2025-04-30 | | 1.00 | (missing) | (missing) | | plasma | 22:16 | [facility] | | | | | albumin/glob | [facility] | | | | | ulin mass | | [facility] | | | | | ratio | | [facility] | | | | + + + +--------+ + + + + | Result panel 4 | + + + + + +-------+ + + | Serum or | 2025-04-30 | | 0.2 | (missing) | (missing) | | plasma total | 22:16 | [facility] | | | | | bilirubin | | - [facility] | [facility] | | measurement | | [facility] | | | | (mass/volume | | [facility] | | | | | ) | | | | | | + + + +-------+ + + + + | Result panel 5 | + + + + + +------+ + + | Serum or | 2025-04-30 | | 12 | (missing) | (missing) | | plasma | 22:16 | [facility] | | | | | [...] +------+ + + | Serum or | 2025-04-30 | | 10 | (missing) | (missing) | | plasma | 22:16 | [facility] | | | | | [...] 7 | + + + + + +-------+ + + | Serum or | 2025-04-30 | | 180 | (missing) | (missing) | | plasma | 22:16 | [facility] | | | | | [...] +--------+ + + | Serum or | 2025-04-30 | | 33.9 | (missing) | (missing) | | plasma | 22:16 | [facility] | | | | | [...] + +--------+ + + | Blood | 2025-04-30 | | 9.82 | (missing) | (missing) | | leukocytes | 22:16 | [facility] | | | | | automated | [facility] | [facility] | | count | | [facility] | | | | | (number/volu | | Hospital | | | | | me) | | | | | | + + + +--------+ + + + + | Result panel 10 | + + + + + +--------+ + + | Blood | 2025-04-30 | | 4.26 | (missing) | (missing) | | erythrocytes | 22:16 | [facility] | | | | | automated | [facility] - [facility] | | [facility] | count | | [facility] | | | | | (number/volu | | Hospital | | | | | me) | | | | | | + + + +--------+ + + + + | Result panel 11 | + + + + + +--------+ + + | Blood | 2025-04-30 | | 11.4 | (missing) | (missing) | | hemoglobin | 22:16 | [facility] | | | | | measurement | [facility] | | | | (mass/volume | | [facility] | | [facility] | ) | | [facility] | | | | + + + +--------+ + + + + | Result panel 12 | + + + + + +--------+ + + | Automated | 2025-04-30 | | 35.7 | (missing) | (missing) | | blood | 22:16 | [facility] | | | | | hematocrit | [facility] | | [facility] | | | | + + + +--------+ + + + + | Result panel 13 | + + + + + +--------+ + + | Automated | 2025-04-30 | | 83.8 | (missing) | (missing) | | erythrocyte | 22:16 | [facility] | | | | | mean | [facility] | | | | | corpuscular | | [facility] | | | | | volume | | [facility] | | | | + + + +--------+ + + + + | Result panel 14 | + + + + + +--------+ + + | Automated | 2025-04-30 | | 26.8 | (missing) | (missing) | | erythrocyte | 22:16 | [facility] | | | | | [...] 15 | + + + + + +--------+ + + | Automated | 2025-04-30 | | 31.9 | (missing) | (missing) | | erythrocyte | 22:16 | [facility] | | | | | [...] 16 | + + + + + +-------+ + + | Automated | 2025-04-30 | | 197 | (missing) | (missing) | | blood | 22:16 | [facility] | | | | | [...] + +--------+ + + | Automated | 2025-04-30 | | 68.1 | (missing) | (missing) | | blood | 22:16 | [facility] | | | | | [...] 18 | + + + + + +--------+ + + | Automated | 2025-04-30 | | 20.6 | (missing) | (missing) | | blood | 22:16 | [facility] | | | | | [...] + +-------+ + + | Automated | 2025-04-30 | | 8.8 | (missing) | (missing) | | blood | 22:16 | [facility] | | | | | [...] + +-------+ + + | Automated | 2025-04-30 | | 1.0 | (missing) | (missing) | | blood | 22:16 | [facility] | | | | | [...] + +-------+ + + | Automated | 2025-04-30 | | 0.5 | (missing) | (missing) | | blood | 22:16 | [facility] | | | | | [...] 22 | + + + + + +-------+ + + | Serum or | 2025-04-30 | | 658 | (missing) | (missing) | | plasma | 22:16 | [facility] | | | | | glucose | | - [facility] | | [facility] | measurement | | [facility] | | | | | (mass/volume | | Hospital | | | | | ) | | | | | | + + + +-------+ + + + + | Result panel 23 | + + + + + +------+ + + | Serum or | 2025-04-30 | | 23 | (missing) | (missing) | | plasma urea | 22:16 | [facility] | | | | | nitrogen | | - [facility] | | [facility] | | measurement | | [facility] | | | | | (mass/volume | | Hospital | | | | | ) | | | | | | + + + +------+ + + + + | Result panel 24 | + + + + + +--------+ + + | Serum or | 2025-04-30 | | 2.48 | (missing) | (missing) | | plasma | 22:16 | [facility] | | | | | [...] + +------+ + + | Glomerular | 2025-04-30 | | 27 | (missing) | (missing) | | filtration | 22:16 | [facility] | | | | | [...] 26 | + + + + + +--------+ + + | Serum or | 2025-04-30 | | 9.27 | (missing) | (missing) | | plasma urea | 22:16 | [facility] | | | | | nitrogen/cre | | - [facility] | | | | | atinine mass | | [facility] | | | | | ratio | | [facility] | | | | + + + +--------+ + + + + | Result panel 27 | + + + + + +-------+ + + | Serum or | 2025-04-30 | | 127 | (missing) | (missing) | | plasma | 22:16 | [facility] | | | | | sodium | | - [facility] | | [facility] | | measurement | | [facility] | | | | | (moles/volum | | Hospital | | | | | e) | | | | | | + + + +-------+ + + + + | Result panel 28 | + + + + + +-------+ + + | Serum or | 2025-04-30 | | 4.8 | (missing) | (missing) | | plasma | 22:16 | [facility] | | | | | potassium | | - [facility] | | [facility] | measurement | | [facility] | | | | | (moles/volum | | Hospital | | | | | e) | | | | | | + + + +-------+ + + + + | Result panel 29 | + + + + + +------+ + + | Serum or | 2025-04-30 | | 94 | (missing) | (missing) | | plasma | 22:16 | [facility] | | | | | chloride | | - [facility] | | [facility] | | measurement | | [facility] | | | | | (moles/volum | | Hospital | | | | | e) | | | | | | + + + +------+ + + + + | Result panel 30 | + + + + + +------+ + + | Serum or | 2025-04-30 | | 25 | (missing) | (missing) | | plasma | 22:16 | [facility] | | | | | [...] +--------+ + + | Serum or | 2025-04-30 | | 12.8 | (missing) | (missing) | | plasma anion | 22:16 | [facility] | | | | | gap 4 | [facility] | | | | + + + +--------+ + + + + | Result panel 32 | + + + + + +-------+ + + | Serum or | 2025-04-30 | | 8.6 | (missing) | (missing) | | plasma | 22:16 | [facility] | | | | | [...] +-------+ + + | Serum or | 2025-04-30 | | 6.6 | (missing) | (missing) | | plasma | 22:16 | [facility] | | | | | [...] +-------+ + + | Serum or | 2025-04-30 | | 3.3 | (missing) | (missing) | | plasma | 22:16 | [facility] | | | | | [...] + +-------+ + + | Serum | 2025-04-30 | | 3.3 | (missing) | (missing) | | globulin | 22:16 | [facility] | | | | | measurement | [facility] | (mass/volume | | [facility] | [facility] ) | | [facility] | | | | + + + +-------+ + + + + | Result panel 36 | + + + + + +--------+ + + | Serum or | 2025-04-30 | | 1.00 | (missing) | (missing) | | plasma | 22:16 | [facility] | | | | | albumin/glob | | - [facility] | | [facility] | | ulin mass | | [facility] | | | | | ratio | | [facility] | | | | + + + +--------+ + + + + | Result panel 37 | + + + + + +-------+ + + | Serum or | 2025-04-30 | | 0.2 | (missing) | (missing) | | plasma total | 22:16 | [facility] | | | | | bilirubin | | - [facility] | [facility] | measurement | | [facility] | | | | | (mass/volume | | Hospital | | | | | ) | | | | | | + + + +-------+ + + + + | Result panel 38 | + + + + + +------+ + + | Serum or | 2025-04-30 | | 12 | (missing) | (missing) | | plasma | 22:16 | [facility] | | | | | [...] 39 | + + + + + +------+ + + | Serum or | 2025-04-30 | | 10 | (missing) | (missing) | | plasma | 22:16 | [facility] | | | | | [...] 40 | + + + + + +-------+ + + | Serum or | 2025-04-30 | | 180 | (missing) | (missing) | | plasma | 22:16 | [facility] | | | | | [...] +--------+ + + | Serum or | 2025-04-30 | | 33.9 | (missing) | (missing) | | plasma | 22:16 | [facility] | | | | | [...] 42 | + + + + + +--------+ + + | Blood | 2025-04-30 | | 9.82 | (missing) | (missing) | | leukocytes | 22:16 | [facility] | | | | | [...] + +--------+ + + | Blood | 2025-04-30 | | 4.26 | (missing) | (missing) | | erythrocytes | 22:16 | [facility] | | | | | [...] + +--------+ + + | Blood | 2025-04-30 | | 11.4 | (missing) | (missing) | | hemoglobin | 22:16 | [facility] | | | | | measurement | | - [facility] | [facility] | (mass/volume | | [facility] | [facility] ) | | [facility] | | | | + + + +--------+ + + + + | Result panel 45 | + + + + + +--------+ + + | Automated | 2025-04-30 | | 35.7 | (missing) | (missing) | | blood | 22:16 | [facility] | | | | | hematocrit | [facility] | | [facility] | | | | + + + +--------+ + + + + | Result panel 46 | + + + + + +--------+ + + | Automated | 2025-04-30 | | 83.8 | (missing) | (missing) | | erythrocyte | 22:16 | [facility] | | | | | mean | | - [facility] | | | | | corpuscular | | [facility] | | | | | volume | | [facility] | | | | + + + +--------+ + + + + | Result panel 47 | + + + + + +--------+ + + | Automated | 2025-04-30 | | 26.8 | (missing) | (missing) | | erythrocyte | 22:16 | [facility] | | | | | [...] 48 | + + + + + +--------+ + + | Automated | 2025-04-30 | | 31.9 | (missing) | (missing) | | erythrocyte | 22:16 | [facility] | | | | | [...] + + + + | Result panel 49 | + + + + + +-------+ + + | Automated | 2025-04-30 | | 197 | (missing) | (missing) | | blood | 22:16 | [facility] | | | | | platelet | | [facility] | | [facility] | count | | [facility] | | | | | (count/volum | | Hospital | | | | | e) | | | | | | + + + +-------+ + + + + | Result panel 50 | + + + + + +--------+ + + | Automated | 2025-04-30 | | 68.1 | (missing) | (missing) | | blood | 22:16 | [facility] | | | | | neutrophil | | - [facility] | | | | | count as | | [facility] | | | | | percentage | | Hospital | | | | | of total | | | | | | | leukocytes | | | | | | + + + +--------+ + + + + | Result panel 51 | + + + + + +--------+ + + | Automated | 2025-04-30 | | 20.6 | (missing) | (missing) | | blood | 22:16 | [facility] | | | | | [...] 52 | + + + + + +-------+ + + | Automated | 2025-04-30 | | 8.8 | (missing) | (missing) | | blood | 22:16 | [facility] | | | | | [...] + +-------+ + + | Automated | 2025-04-30 | | 1.0 | (missing) | (missing) | | blood | 22:16 | [facility] | | | | | [...] + +-------+ + + | Automated | 2025-04-30 | | 0.5 | (missing) | (missing) | | blood | 22:16 | [facility] | | | | | [...] +-------+ + + | Serum or | 2025-04-30 | | 658 | (missing) | (missing) | | plasma | 22:16 | [facility] | | | | | [...] +------+ + + | Serum or | 2025-04-30 | | 23 | (missing) | (missing) | | plasma urea | 22:16 | [facility] | | | | | [...] +--------+ + + | Serum or | 2025-04-30 | | 2.48 | (missing) | (missing) | | plasma | 22:16 | [facility] | | | | | creatinine | | - [facility] | | [facility] | measurement | | [facility] | | | | | (mass/volume | | Hospital | | | | | ) | | | | | | + + + +--------+ + + + + | Result panel 58 | + + + + + +------+ + + | Glomerular | 2025-04-30 | | 27 | (missing) | (missing) | | filtration | 22:16 | [facility] | | | | | [...] + + + + | Result panel 59 | + + + + + +--------+ + + | Serum or | 2025-04-30 | | 9.27 | (missing) | (missing) | | plasma urea | 22:16 | [facility] | | | | | nitrogen/cre | | - [facility] | | | | | atinine mass | | [facility] | | | | | ratio | | [facility] | | | | + + + +--------+ + + + + | Result panel 60 | + + + + + +-------+ + + | Serum or | 2025-04-30 | | 127 | (missing) | (missing) | | plasma | 22:16 | [facility] | | | | | [...] +-------+ + + | Serum or | 2025-04-30 | | 4.8 | (missing) | (missing) | | plasma | 22:16 | [facility] | | | | | potassium | | - [facility] | | | | | measurement | | [facility] | | | | | (moles/volum | | Hospital | | | | | e) | | | | | | + + + +-------+ + + + + | Result panel 62 | + + + + + +------+ + + | Serum or | 2025-04-30 | | 94 | (missing) | (missing) | | plasma | 22:16 | [facility] | | | | | chloride | | - [facility] | | [facility] | measurement | | [facility] | | | | | (moles/volum | | Hospital | | | | | e) | | | | | | + + + +------+ + + + + | Result panel 63 | + + + + + +------+ + + | Serum or | 2025-04-30 | | 25 | (missing) | (missing) | | plasma | 22:16 | [facility] | | | | | [...] 64 | + + + + + +--------+ + + | Serum or | 2025-04-30 | | 12.8 | (missing) | (missing) | | plasma anion | 22:16 | [facility] | | | | | gap 4 | [facility] | | | | + + + +--------+ + + + + | Result panel 65 | + + + + + +-------+ + + | Serum or | 2025-04-30 | | 8.6 | (missing) | (missing) | | plasma | 22:16 | [facility] | | | | | calcium | | - [facility] | | [facility] | | measurement | | [facility] | | | | | (mass/volume | | Hospital | | | | | ) | | | | | | + + + +-------+ + + + + | Result panel 66 | + + + + + +-------+ + + | Serum or | 2025-04-30 | | 6.6 | (missing) | (missing) | | plasma | 22:16 | [facility] | | | | | [...] + + + +--------+ + + | WBC # Bld | 2025-04-30 | | 9.82 | (missing) | (missing) | | Auto | 22:16:07 | [facility] | | | | + + + +--------+ + + + + | Result panel 68 | + + + + + +--------+ + + | RBC # Bld | 2025-04-30 | | 4.26 | (missing) | (missing) | | Auto | 22:16:07 | [facility] | | | | + + + +--------+ + + + + | Result panel 69 | + + + + + +--------+ + + | Hgb | 2025-04-30 | | 11.4 | (missing) | (missing) | | Bld-mCnc | 22:16:07 | [facility] | | | | + + + +--------+ + + + + | Result panel 70 | + + + + + +--------+ + + | Hct VFr.DF | 2025-04-30 | | 35.7 | (missing) | (missing) | | Bld Auto | 22:16:07 | [facility] | | | | + + + +--------+ + + + + | Result panel 71 | + + + + + +--------+ + + | RBC Auto | 2025-04-30 | | 83.8 | (missing) | (missing) | | | 22:16:07 | [facility] | | | | + + + +--------+ + + + + | Result panel 72 | + + + + + +--------+ + + | MCH RBC Qn | 2025-04-30 | | 26.8 | (missing) | (missing) | | Auto | 22:16:07 | [facility] | | | | + + + +--------+ + + + + | Result panel 73 | + + + + + +--------+ + + | MCHC RBC | 2025-04-30 | | 31.9 | (missing) | (missing) | | Auto-EntMCnc | 22:16:07 | [facility] | | | | + + + +--------+ + + + + | Result panel 74 | + + + + + +-------+ + + | Platelet # | 2025-04-30 | | [phone] | (missing) | (missing) | | Bld Auto | 22:16:07 | [facility] | | | | + + + +-------+ + + + + | Result panel 75 | + + + + + +--------+ + + | Neutrophils | 2025-04-30 | | 68.1 | (missing) | (missing) | | NFr Bld | 22:16:07 | [facility] | | | [facility] | | | | + + + +--------+ + + + + | Result panel 76 | + + + + + +--------+ + + | Lymphocytes | 2025-04-30 | | 20.6 | (missing) | (missing) | | NFr Bld | 22:16:07 | [facility] | | [facility] | | | | + + + +--------+ + + + + | Result panel 77 | + + + + + +-------+ + + | Monocytes | 2025-04-30 | | 8.8 | (missing) | (missing) | | NFr Bld Auto | 22:16:07 | [facility] | | | | + + + +-------+ + + + + | Result panel 78 | + + + + + +-------+ + + | Eosinophil | 2025-04-30 | | 1.0 | (missing) | (missing) | | NFr Bld Auto | 22:16:07 | [facility] | | | | + + + +-------+ + + + + | Result panel 79 | + + + + + +-------+ + + | Basophils | 2025-04-30 | | 0.5 | (missing) | (missing) | | NFr Bld Auto | 22:16:07 | [facility] | | | | + + + +-------+ + + + + | Result panel 80 | + + + + + +-------+---------+ + | Glucose | 2025-04-30 | | 658 | mg/dL | (missing) | | [facility] | 22:16:07 | [facility] | | | | + + + +-------+---------+ + + + | Result panel 81 | + + + + + +------+---------+ + | BUN | 2025-04-30 | | 23 | mg/dL | (missing) | | [facility] | 22:16:07 | [facility] | | | | + + + +------+---------+ + + + | Result panel 82 | + + + + + +--------+---------+ + | Creat | 2025-04-30 | | 2.48 | mg/dL | (missing) | | SerPl-mCnc | 22:16:07 | [facility] | | | | | | | - | | | | | | | [facility] | | | | + + + +--------+---------+ + + + | Result panel 83 | + + + + + +------+ + + | eGFRcr | 2025-04-30 | | 27 | (missing) | (missing) | | SerPlBld | 22:16:07 | [facility] | | | | | CKD-EPI 2020 | | - | | | | | | | [facility] | | | | + + + +------+ + + + + | Result panel 84 | + + + + + +--------+ + + | BUN/Creat | 2025-04-30 | | 9.27 | (missing) | (missing) | | SerPl | 22:16:07 | [facility] | | | | + + + +--------+ + + + + | Result panel 85 | + + + + + +-------+ + + | Sodium | 2025-04-30 | | 127 | (missing) | (missing) | | SerPl-sCnc | 22:16:07 | [facility] | | | | + + + +-------+ + + + + | Result panel 86 | + + + + + +-------+ + + | Potassium | 2025-04-30 | | 4.8 | (missing) | (missing) | | SerPl-sCnc | 22:16:07 | [facility] | | | | + + + +-------+ + + + + | Result panel 87 | + + + + + +------+ + + | Chloride | 2025-04-30 | | 94 | (missing) | (missing) | | SerPl-sCnc | 22:16:07 | [facility] | | | | + + + +------+ + + + + | Result panel 88 | + + + + + +------+ + + | CO2 | 2025-04-30 | | 25 | (missing) | (missing) | | SerPl-sCn | 22:16:07 | [facility] | | | | + + + +------+ + + + + | Result panel 89 | + + + + + +--------+ + + | Anion Gap | 2025-04-30 | | 12.8 | (missing) | (missing) | | SerPl | 22:16:07 | [facility] | | | | | Calculated.4 | [facility] | [facility] | | | | + + + +--------+ + + + + | Result panel 90 | + + + + + +-------+---------+ + | Calcium | 2025-04-30 | | 8.6 | mg/dL | (missing) | | SerPl-mCnc | 22:16:07 | [facility] | | | | + + + +-------+---------+ + + + | Result panel 91 | + + + + + +-------+ + + | Prot | 2025-04-30 | | 6.6 | (missing) | (missing) | | SerPl-mCedwin | 22:16:07 | [facility] | | | | + + + +-------+ + + + + | Result panel 92 | + + + + + +-------+ + + | Albumin | 2025-04-30 | | 3.3 | (missing) | (missing) | | SerPl-mCnc | 22:16:07 | [facility] | | | | + + + +-------+ + + + + | Result panel 93 | + + + + + +-------+ + + | Globulin | 2025-04-30 | | 3.3 | (missing) | (missing) | | Ser-mCnc | 22:16:07 | [facility] | | | | + + + +-------+ + + + + | Result panel 94 | + + + + + +--------+ + + | | 2025-04-30 | | 1.00 | (missing) | (missing) | | Albumin/Glob | 22:16:07 | [facility] | | | | | SerPl | [facility] | | | | + + + +--------+ + + + + | Result panel 95 | + + + + + +-------+---------+ + | Bilirub | 2025-04-30 | | 0.2 | mg/dL | (missing) | | SerPl-mCnc | 22:16:07 | [facility] | | | | + + + +-------+---------+ + + + | Result panel 96 | + + + + + +------+ + + | AST | 2025-04-30 | | 12 | (missing) | (missing) | | SerPl-cCnc | 22:16:07 | [facility] | | | [facility] | | | | + + + +------+ + + + + | Result panel 97 | + + + + + +------+ + + | ALT | 2025-04-30 | | 10 | (missing) | (missing) | | [facility] | 22:16:07 | [facility] | | [facility] | | | | + + + +------+ + + + + | Result panel 98 | + + + + + +-------+ + + | ALP | 2025-04-30 | | 180 | (missing) | (missing) | | SerPl-cCnc | 22:16:07 | [facility] | [facility] | | | | + + + +-------+ + + + + | Result panel 99 | + + + + + +--------+ + + | Troponin I | 2025-04-30 | | 33.9 | (missing) | (missing) | | SerPl | 22:16:07 | [facility] | | | | | HS-mCnc | [facility] | | | | + + + +--------+ + + + + | Result panel 100 | + + + + + + + + + | Color of | 2025-04-30 | | YELLOW | (missing) | (missing) | | Urine by | 23:00 | [facility] | | | | | Auto | [facility] - [facility] | | | | + + + + + + + + + | Result panel 101 | + + + + + + + + + | | 2025-04-30 | | NORMAL | (missing) | (missing) | | Urobilinogen | 23:00 | [facility] | | | | | | | - [facility] | | | | | [Mass/volume | | [facility] | | | | | ] in Urine | | Hospital | | | | | by Test | | | | | | | strip | | | | | | + + + + + + + + + | Result panel 102 | + + + + + + + + + | Urine | 2025-04-30 | | NEGATIVE | (missing) | (missing) | | nitrite | 23:00 | [facility] | | | | | detection by | | - | | | | | test strip | | [facility] | | | | + + + + + + + + + | Result panel 103 | + + + + + + + + + | Urine | 2025-04-30 | | NEGATIVE | (missing) | (missing) | | leukocyte | 23:00 | [facility] | | | | | esterase | [facility] - [facility] | | | | | detection by | | [facility] | | | | | dipstick | | [facility] | | | | + + + + + + + + + | Result panel 104 | + + + + + +-------+ + + | Automated | 2025-04-30 | | 0-1 | (missing) | (missing) | | urine | 23:00 | [facility] | | | | | sediment | | - [facility] | | | | | erythrocyte | | [facility] | | | | | count by | | Hospital | | | | | microscopy | | | | | | | (number/high | | | | | | | power | | | | | | | field) | | | | | | + + + +-------+ + + + + | Result panel 105 | + + + + + +-------+ + + | Automated | 2025-04-30 | | 0-1 | (missing) | (missing) | | urine | 23:00 | [facility] | | | | | sediment | | - [facility] | | | | | leukocyte | | [facility] | | | | | count by | | Hospital | | | | | microscopy | | | | | | | (number/high | | | | | | | power | | | | | | | field) | | | | | | + + + +-------+ + + + + | Result panel 106 | + + + + + + + + + | Automated | 2025-04-30 | | SQUAMOUS 1+ | (missing) | (missing) | | urine | 23:00 | [facility] | | | | | sediment | | - [facility] | | | | | epithelial | | [facility] | | | | | cell count | | Hospital | | | | | by | | | | | | | microscopy | | | | | | | (number/high | | | | | | | power | | | | | | | field) | | | | | | + + + + + + + + + | Result panel 107 | + + + + + + + + + | Crystal | 2025-04-30 | | NONE SEEN | (missing) | (missing) | | typing in | 23:00 | [facility] | | | | | urine | | - [facility] | | | | | sediment by | | [facility] | | | | | light | | Hospital | | | | | microscopy | | | | | | + + + + + + + + + | Result panel 108 | + + + + + +--------+ + + | Automated | 2025-04-30 | | RARE | (missing) | (missing) | | urine | 23:00 | [facility] | | | | | sediment | | - [facility] | | | | | bacteria | | [facility] | | | | | count by | | Hospital | | | | | microscopy | | | | | | | (number/high | | | | | | | power | | | | | | | field) | | | | | | + + + +--------+ + + + + | Result panel 109 | + + + + + + + + + | Automated | 2025-04-30 | | NONE SEEN | (missing) | (missing) | | casts count | 23:00 | [facility] | | | | | in urine | | - [facility] | | | | | sediment by | | [facility] | | | | | microscopy | | Hospital | | | | | low power | | | | | | | field | | | | | | | (number/area | | | | | | | ) | | | | | | + + + + + + + + + | Result panel 110 | + + + + + +------+ + + | Reflexive | 2025-04-30 | | No | (missing) | (missing) | | urine | 23:00 | [facility] | | | | | bacterial | | - [facility] | | | | | culture | | [facility] | | | | + + + +------+ + + + + | Result panel 111 | + + + + + +---------+ + + | Character | 2025-04-30 | | CLEAR | (missing) | (missing) | | of Urine | 23:00 | [facility] | | | | | | | - [facility] | | | | | | | [facility] | | | | + + + +---------+ + + + + | Result panel 112 | + + + + + + + + + | Urinalysis | 2025-04-30 | | CLEAN CATCH | (missing) | (missing) | | specimen | 23:00 | [facility] | | | | | collection | | - [facility] | | | | | method | | [facility] | | | | + + + + + + + + + | Result panel 113 | + + + + + + + + + | Glucose | 2025-04-30 | | >=1000 | (missing) | (missing) | | [Presence] | 23:00 | [facility] | | | | | in Urine by | | - | | | | | Test strip | | [facility] | | | | + + + + + + + + + | Result panel 114 | + + + + + + + + + | Urine total | 2025-04-30 | | NEGATIVE | (missing) | (missing) | | bilirubin | 23:00 | [facility] | | | | | detection by | | - [facility] | | | | | test strip | | [facility] | | | | + + + + + + + + + | Result panel 115 | + + + + + + + + + | Urine | 2025-04-30 | | NEGATIVE | (missing) | (missing) | | ketones | 23:00 | [facility] | | | | | detection by | | - [facility] | | | | | test strip | | [facility] | | | | + + + + + + + + + | Result panel 116 | + + + + + + + + + | Color of | 2025-04-30 | | YELLOW | (missing) | (missing) | | Urine by | 23:00 | [facility] | | | | | Auto | | - [facility] | | | | | | [facility] | [facility] | | | | + + + + + + + + + | Result panel 117 | + + + + + +---------+ + + | Character | 2025-04-30 | | CLEAR | (missing) | (missing) | | of Urine | 23:00 | [facility] | | | | | | | - [facility] | | | | | | | [facility] | | | | + + + +---------+ + + + + | Result panel 118 | + + + + + + + + + | Glucose | 2025-04-30 | | >=1000 | (missing) | (missing) | | [Presence] | 23:00 | [facility] | | | | | in Urine by | | - [facility] | | | | | Test strip | | [facility] | | | | + + + + + + + + + | Result panel 119 | + + + + + + + + + | Urine total | 2025-04-30 | | NEGATIVE | (missing) | (missing) | | bilirubin | 23:00 | [facility] | | | | | detection by | | - | | | | | test strip | | [facility] | | | | + + + + + + + + + | Result panel 120 | + + + + + + + + + | Urine | 2025-04-30 | | NEGATIVE | (missing) | (missing) | | ketones | 23:00 | [facility] | | | | | detection by | | - [facility] | | | | | test strip | | [facility] | [facility] | | | | + + + + + + + + + | Result panel 121 | + + + + + +---------+ + + | Specific | 2025-04-30 | | 1.010 | (missing) | (missing) | | gravity ur | 23:00 | [facility] | | | | | dipstick | | - [facility] | | | | | | | [facility] | [facility] | | | | + + + +---------+ + + + + | Result panel 122 | + + + + + +---------+ + + | Specific | 2025-04-30 | | 1.010 | (missing) | (missing) | | gravity ur | 23:00 | [facility] | | | | | dipstick | | - [facility] | | | | | | [facility] | | | | + + + +---------+ + + + + | Result panel 123 | + + + + + + + + + | Urine | 2025-04-30 | | NEGATIVE | (missing) | (missing) | | hemoglobin | 23:00 | [facility] | | | | | detection by | | - [facility] | | | | | test strip | | [facility] | | | | + + + + + + + + + | Result panel 124 | + + + + + +-------+ + + | Urine pH | 2025-04-30 | | 6.0 | (missing) | (missing) | | measurement | 23:00 | [facility] | | | | | by test | | - [facility] | | | | | strip | | [facility] | | | | + + + +-------+ + + + + | Result panel 125 | + + + + + +-------+ + + | Protein | 2025-04-30 | | 100 | (missing) | (missing) | | urine test | 23:00 | [facility] | | | | | strip | | - [facility] | | | | | | | [facility] | [facility] | | | | + + + +-------+ + + + + | Result panel 126 | + + + + + + + + + | | 2025-04-30 | | NORMAL | (missing) | (missing) | | Urobilinogen | 23:00 | [facility] | | | | | | | - [facility] | | | | | [Mass/volume | | [facility] | | | | | ] in Urine | | Hospital | | | | | by Test | | | | | | | strip | | | | | | + + + + + + + + + | Result panel 127 | + + + + + + + + + | Urine | 2025-04-30 | | NEGATIVE | (missing) | (missing) | | nitrite | 23: | [facility] | | | | | detection by | | - [facility] | | | | | test strip | | [facility] | | | | + + + + + + + + + | Result panel 128 | + + + + + + + + + | Urine | 2025-04-30 | | NEGATIVE | (missing) | (missing) | | leukocyte | 23:00 | [facility] | | | | | esterase | | - [facility] | | | | | detection by | | [facility] | | | | | dipstick | | [facility] | | | | + + + + + + + + + | Result panel 129 | + + + + + +-------+ + + | Automated | 2025-04-30 | | 0-1 | (missing) | (missing) | | urine | 23:00 | [facility] | | | | | sediment | | - [facility] | | | | | erythrocyte | | [facility] | | | | | count by | | Hospital | | | | | microscopy | | | | | | | (number/high | | | | | | | power | | | | | | | field) | | | | | | + + + +-------+ + + + + | Result panel 130 | + + + + + +-------+ + + | Automated | 2025-04-30 | | 0-1 | (missing) | (missing) | | urine | 23:00 | [facility] | | | | | sediment | | - [facility] | | | | | leukocyte | | [facility] | | | | | count by | | Hospital | | | | | microscopy | | | | | | | (number/high | | | | | | | power | | | | | | | field) | | | | | | + + + +-------+ + + + + | Result panel 131 | + + + + + + + + + | Automated | 2025-04-30 | | SQUAMOUS 1+ | (missing) | (missing) | | urine | 23:00 | [facility] | | | | | sediment | | - [facility] | | | | | epithelial | | [facility] | | | | | cell count | | Hospital | | | | | by | | | | | | | microscopy | | | | | | | (number/high | | | | | | | power | | | | | | | field) | | | | | | + + + + + + + + + | Result panel 132 | + + + + + + + + + | Urine | 2025-04-30 | | NEGATIVE | (missing) | (missing) | | hemoglobin | 23:00 | [facility] | | | | | detection by | | - [facility] | | | | | test strip | | [facility] | [facility] | | | | + + + + + + + + + | Result panel 133 | + + + + + + + + + | Crystal | 2025-04-30 | | NONE SEEN | (missing) | (missing) | | typing in | 23:00 | [facility] | | | | | urine | | - [facility] | | | | | sediment by | | [facility] | | | | | light | | Hospital | | | | | microscopy | | | | | | + + + + + + + + + | Result panel 134 | + + + + + +--------+ + + | Automated | 2025-04-30 | | RARE | (missing) | (missing) | | urine | 23:00 | [facility] | | | | | sediment | | - [facility] | | | | | bacteria | | [facility] | | | | | count by | | Hospital | | | | | microscopy | | | | | | | (number/high | | | | | | | power | | | | | | | field) | | | | | | + + + +--------+ + + + + | Result panel 135 | + + + + + + + + + | Automated | 2025-04-30 | | NONE SEEN | (missing) | (missing) | | casts count | 23:00 | [facility] | | | | | in urine | | - [facility] | | | | | sediment by | | [facility] | | | | | microscopy | | Hospital | | | | | low power | | | | | | | field | | | | | | | (number/area | | | | | | | ) | | | | | | + + + + + + + + + | Result panel 136 | + + + + + +------+ + + | Reflexive | 2025-04-30 | | No | (missing) | (missing) | | urine | 23:00 | [facility] | | | | | bacterial | | - [facility] | | | | | culture | | [facility] | | [facility] | | [facility] | | | | + + + +------+ + + + + | Result panel 137 | + + + + + + + + + | Urinalysis | 2025-04-30 | | CLEAN CATCH | (missing) | (missing) | | specimen | 23:00 | [facility] | | | | | collection | | - [facility] | | | | | method | | [facility] | | | | + + + + + + + + + | Result panel 138 | + + + + + +-------+ + + | Urine pH | 2025-04-30 | | 6.0 | (missing) | (missing) | | measurement | 23:00 | [facility] | | | | | by test | | - [facility] | | | | | strip | | [facility] | [facility] | | | | + + + +-------+ + + + + | Result panel 139 | + + + + + +-------+ + + | Protein | 2025-04-30 | | 100 | (missing) | (missing) | | urine test | 23:00 | [facility] | | | | | strip | | - [facility] | | | | | | | [facility] | | [facility] | | [facility] | | | | + + + +-------+ + + + + | Result panel 140 | + + + + + + + + + | Color Ur | 2025-04-30 | | YELLOW | (missing) | (missing) | | Auto | 23:00:07 | [facility] | | | | | | | - [facility] | | | | | | | [facility] | | | | + + + + + + + + + | Result panel 141 | + + + + + +---------+ + + | Character | 2025-04-30 | | CLEAR | (missing) | (missing) | | Ur | 23:00:07 | [facility] | | | | | | | - [facility] | | | | | | | [facility] | [facility] | | | | + + + +---------+ + + + + | Result panel 142 | + + + + + + + + + | Glucose Ur | 2025-04-30 | | >=1000 | (missing) | (missing) | | Ql Strip | 23:00:07 | [facility] | | | | | | | - [facility] | | | | | | | [facility] | | | | + + + + + + + + + | Result panel 143 | + + + + + + + + + | Bilirub Ur | 2025-04-30 | | NEGATIVE | (missing) | (missing) | | Ql Strip | 23:00:07 | [facility] | | | | | | | - [facility] | | | | | | | [facility] | [facility] | [facility] | | | | + + + + + + + + + | Result panel 144 | + + + + + + + + + | Ignacio Ur | 2025-04-30 | | NEGATIVE | (missing) | (missing) | | Ql Strip | 23:00:07 | [facility] | | | | | | | - [facility] | | | | | | | [facility] | | | | + + + + + + + + + | Result panel 145 | + + + + + +---------+ + + | Sp Gr Ur | 2025-04-30 | | 1.010 | (missing) | (missing) | | Strip | 23:00:07 | [facility] | | | | | | [facility] - [facility] | | | | | | [facility] | | | | + + + +---------+ + + + + | Result panel 146 | + + + + + + + + + | Hgb Ur Ql | 2025-04-30 | | NEGATIVE | (missing) | (missing) | | Strip | 23:00:07 | [facility] | | | | | | | - [facility] | | | | | | [facility] | | | | + + + + + + + + + | Result panel 147 | + + + + + +-------+ + + | pH Ur Strip | 2025-04-30 | | 6.0 | (missing) | (missing) | | | 23:00:07 | [facility] | | | | | | [facility] - [facility] | | | | | | [facility] | | | | + + + +-------+ + + + + | Result panel 148 | + + + + + +-------+ + + | Prot Ur | 2025-04-30 | | 100 | (missing) | (missing) | | [facility] | 23:00:07 | [facility] | | | | | | [facility] | | | | + + + +-------+ + + + + | Result panel 149 | + + + + + + + + + | | 2025-04-30 | | NORMAL | (missing) | (missing) | | Urobilinogen | 23:00:07 | [facility] | | | | | Ur | | - [facility] | | | | | Strip-mCnc | | [facility] | | | | + + + + + + + + + | Result panel 150 | + + + + + + + + + | Nitrite Ur | 2025-04-30 | | NEGATIVE | (missing) | (missing) | | Ql Strip | 23:00:07 | [facility] | | | | | | [facility] - [facility] | | | | | | [facility] | | | | + + + + + + + + + | Result panel 151 | + + + + + + + + + | Leukocyte | 2025-04-30 | | NEGATIVE | (missing) | (missing) | | esterase Ur | 23:00:07 | [facility] | | | | | Ql Strip | | - [facility] | | | | | | [facility] | | | | + + + + + + + + + | Result panel 152 | + + + + + +-------+ + + | RBC #/area | 2025-04-30 | | 0-1 | (missing) | (missing) | | UrnS HPF | 23:00:07 | [facility] | | | | | | [facility] - [facility] | | | | | | [facility] | | | | + + + +-------+ + + + + | Result panel 153 | + + + + + +-------+ + + | WBC #/area | 2025-04-30 | | 0-1 | (missing) | (missing) | | UrnS HPF | 23:00:07 | [facility] | | | | | | [facility] - [facility] | | | | | | [facility] | | | | + + + +-------+ + + + + | Result panel 154 | + + + + + + + + + | Epi Cells | 2025-04-30 | | SQUAMOUS 1+ | (missing) | (missing) | | #/area UrnS | 23:00:07 | [facility] | | | | | HPF | | - [facility] | | | | | | [facility] | [facility] | | | | + + + + + + + + + | Result panel 155 | + + + + + + + + + | Crystals | 2025-04-30 | | NONE SEEN | (missing) | (missing) | | [facility]eda [facility] | 23:00:07 | [facility] | | | | | | | - [facility] | | | | | | | [facility] | | | | + + + + + + + + + | Result panel 156 | + + + + + +--------+ + + | Bacteria | 2025-04-30 | | RARE | (missing) | (missing) | | #/area UrnS | 23:00:07 | [facility] | | | | | HPF | [facility] - [facility] | | | | | | [facility] | | | | + + + +--------+ + + + + | Result panel 157 | + + + + + + + + + | Casts | 2025-04-30 | | NONE SEEN | (missing) | (missing) | | #/area UrnS | 23:00:07 | [facility] | | | [facility] | | | | + + + + + + + + + | Result panel 158 | + + + + + +------+ + + | Bacteria Ur | 2025-04-30 | | No | (missing) | (missing) | | Cult | 23:00:07 | [facility] | | | | + + + +------+ + + + + | Result panel 159 | + + + + + + + + + | Urn Spec | 2025-04-30 | | CLEAN CATCH | (missing) | (missing) | | Collect Meth | 23:00:07 | [facility] | | | | | Ur [facility] | | | | + + + + + + + + + | Result panel 160 | + + + + + +-------+ + + | Whole blood | 2025-05-01 | | 304 | (missing) | (missing) | | glucose | 02:11 | [facility] | | | | | [...] + + + + | Result panel 161 | + + + + + +-------+ + + | Whole blood | 2025-05-01 | | 304 | (missing) | (missing) | | glucose | 02:11 | [facility] | | | | | [...] + + + + | Result panel 162 | + + + + + +-------+ + + | Glucose | 2025-05-01 | | 304 | (missing) | (missing) | | Bld-mCnc | 02:11:07 | [facility] | | | | + + + +-------+ + + Social History + + + + | date | description | facility | + + + + | (no date) | Current every day smoker | [facility] | | | [facility] | + + + + Vital Signs + + + +---------+ | date | measurement | value | units | + + + +---------+ | 2025-04-30 00:00 | BMI | 36.2 | kg/m2 | + + + +---------+ | 2025-04-30 00:00 | height_metric | 167.64 | cm | + + + +---------+ | 2025-04-30 00:00 | height_standard | 66 | in | + + + +---------+ | 2025-04-30 00:00 | weight_metric | 101.599 | kg | + + + +---------+ | 2025-04-30 00:00 | weight_standard | 223.987 | lb | + + + +---------+ | 2025-05-01 00:00 | BP_diastolic | 79 | mmHg | + + + +---------+ | 2025-05-01 00:00 | BP_systolic | 148 | mmHg | + + + +---------+ | 2025-05-01 00:00 | heart_rate | 99 | /min | + + + +---------+ | 2025-05-01 00:00 | o2_saturation | 94 | % | + + + +---------+ | 2025-05-01 00:00 | respiration_rate | 17 | /min | + + + +---------+ | 2025-05-01 00:00 | | 98.1 | F | | | temperature_standar | | | | | d | | | + + + +---------+ | 2025-05-02 00:00 | BMI | 36.2 | kg/m2 | + + + +---------+ | 2025-05-02 00:00 | BP_diastolic | 104 | mmHg | + + + +---------+ | 2025-05-02 00:00 | BP_systolic | 151 | mmHg | + + + +---------+ | 2025-05-02 00:00 | heart_rate | 107 | /min | + + + +---------+ | 2025-05-02 00:00 | height_metric | 167.64 | cm | + + + +---------+ | 2025-05-02 00:00 | height_standard | 66 | in | + + + +---------+ | 2025-05-02 00:00 | o2_saturation | 96 | % | + + + +---------+ | 2025-05-02 00:00 | respiration_rate | 18 | /min | + + + +---------+ | 2025-05-02 00:00 | | 97.7 | F | | | temperature_standar | | | | | d | | | + + + +---------+ | 2025-05-02 00:00 | weight_metric | 101.599 | kg | + + + +---------+ | 2025-05-02 00:00 | weight_standard | 223.987 | lb | + + + +---------+"
[2025-07-13] MEDS ORDERED: ALBUTEROL/IPRATROPIUM 3 ML NEB INH PRN (12:00)
[2025-07-13 12:22] LABS: BASOPHILS 0.4 % (0.2-1.2); EOSINOPHILS 0.5 % (0.8-7.0); LYMPHOCYTES 15.3 % (21.8-53.1); MCH 27.6 PG (25.7-32.2); MCHC 32.2 g/dL (32.3-36.5); MCV 85.9 fL (79.0-92.2); MONOCYTES 8.3 % (5.3-12.2); NEUTROPHILS 74.8 % (34.0-67.9); RBC 4.34 M/uL (4.63-6.08)
[2025-07-13 12:46] LABS: ALT (SGPT) 12.0 U/L (14-59); AST (SGOT) 12.0 U/L (15-37); GLOMERULAR FILTRATION RATE,EST 38.0 mL/min (>60); PROTEIN, TOTAL 7.4 g/dL (6.4-8.2); UREA NITROGEN 23.0 mg/dL (7-18)
[2025-07-13] MEDS ORDERED: FUROSEMIDE 100 MG/10 ML VIAL IV ONE (13:15)
[2025-07-13] MEDS ORDERED: LASIX20 MG PO (15:58)
[2025-07-13 16:10] VITALS: BP 162/81
--- NOTE | 2025-07-14 22:25 | EKG ---
[facility] [address] [place] [address] Signed Sinus tachycardia T wave abnormality, consider lateral ischemia Abnormal ECG When compared with ECG of 30-APR-2025 23:25, No significant change was found Confirmed by Ciro Stevens MD () on 07/14/2025 10:24:54 PM Electronically Signed By: CIRO STEVENS MD 07/14/252224 PATIENT NAME: NAZARIO BROWN BRANDON Electrocardiogram DATE OF : 55 PHYSICIAN: CIRO STEVENS MD REPORT #: [id number] REPORT IS CONFIDENTIAL AND NOT TO BE RELEASED WITHOUT AUTHORIZATION
== END 2025-07-13 16:12 | disposition home or self-care (01) ==
LOC: ED 11:45
PROVIDERS: Emergency Medicine
DX: I11.0 Hypertensive heart disease with heart failure (principal); I50.9 Heart failure, unspecified; R60.0 Localized edema; J44.9 Chronic obstructive pulmonary disease, unspecified; Z59.89 Other problems related to housing and economic circumstances; R06.00 Dyspnea, unspecified; E11.9 Type 2 diabetes mellitus without complications
CPT/HCPCS: 36415; 71045; 80053; 83735; 83880; 84484; 85025; 93005; 93010; 94640; 96374; 99285-25; J1938

== ENCOUNTER 2025-08-01 19:28 | Inpatient (IN) | payer MEDICARE, OTHER ==
[~2025-08-01] VITALS: Ht 167.6 cm; Wt 99.5 kg
--- OUTSIDE RECORDS SUMMARY | ~2025-08-01 | XMS | Continuity of Care Document ---
Demographics + + + | Address | [address] [facility] [address] | | | [place] [address] | + + + | Preferred Language | Unknown | + + + | Marital Status | | + + + | Rastafari Affiliation | Unknown | + + + | Race | White | + + + | Ethnic Group | Not or | + + + Author + + + | Author | [facility] | + + + | Organization | [facility] | + + + | Address | [address] | | | [place] [address] | + + + | Phone | | + + + Care Team Providers + + + + | Care Sorting Livestock Worker Name | Role | Phone | + + + + Unavailable | Unavailable | + + + + Unavailable | Unavailable | + + + + Allergies No information. Encounters No information. Functional Status No information. Immunizations + + + + | date | description | facility | + + + + | (no date) | No vaccine administered | [facility] | | | | [facility] | + + + + Medications + + + + | date | description | facility | + + + + | (no date) | FAMOTIDINE | [facility] | | | | [facility] | + + + + | (no date) | famotidine 40 MG Oral | [facility] | | | Tablet [Pepcid] | [facility] | + + + + | (no date) | HUM INSULIN NPH/REG | [facility] | | | INSULIN HM | [facility] | + + + + | (no date) | insulin isophane, human 70 | [facility] | | | UNT/ML / insulin, regular, | [facility] | | | human | | + + + + | (no date) | 120 ACTUAT albuterol 0.1 | [facility] | | | MG/ACTUAT / ipratropium | [facility] | | | bromide 0.0 | | + + + + | (no date) | IPRATROPIUM/ALBUTEROL | [facility] | | | SULFATE | [facility] | + + + + | (no date) | 120 ACTUAT budesonide 0.08 | [facility] | | | MG/ACTUAT / formoterol | [facility] | | | fumarate 0 | | + + + + | (no date) | BUDESONIDE/FORMOTEROL | [facility] | | | FUMARATE | [facility] | + + + + | (no date) | IPRATROPIUM/ALBUTEROL | [facility] | | | SULFATE | [facility] | + + + + | (no date) | albuterol 0.833 MG/ML / | [facility] | | | ipratropium bromide 0.167 | [facility] | | | MG/ML Inha | | + + + + | (no date) | 30 ACTUAT fluticasone | [facility] | | | furoate 0.1 MG/ACTUAT / | [facility] | | | umeclidinium 0 | | + + + + | (no date) | | [facility] | | | Fluticasone/Umeclidin/Vilan | [facility] | | | ter | | + + + + | (no date) | AMLODIPINE BESYLATE | [facility] | | | | [facility] | + + + + | (no date) | amlodipine 5 MG Oral | [facility] | | | Tablet | [facility] | + + + + | (no date) | LISINOPRIL | [facility] | | | | [facility] | + + + + | (no date) | lisinopril 40 MG Oral | [facility] | | | Tablet | [facility] | + + + + | (no date) | IRBESARTAN | [facility] | | | | [facility] | + + + + | (no date) | irbesartan 75 MG Oral | [facility] | | | Tablet | [facility] | + + + + | 2025-07-13 00:00 | furosemide 20 MG Oral | [facility] | | | Tablet [Lasix] | [facility] | + + + + | (no date) | Insulin NPH Hum/Reg | [facility] | | | Insulin Hm | [facility] | + + + + | (no date) | insulin isophane, human 70 | [facility] | | | UNT/ML / insulin, regular, | [facility] | | | human | | + + + + | (no date) | ATORVASTATIN CALCIUM | [facility] | | | | [facility] | + + + + | (no date) | atorvastatin 80 MG Oral | [facility] | | | Tablet | [facility] | + + + + | (no date) | ASPIRIN | [facility] | | | | [facility] | + + + + | (no date) | aspirin 81 MG Delayed | [facility] | | | Release Oral Tablet | [facility] | + + + + | (no date) | CLOPIDOGREL BISULFATE | [facility] | | | | [facility] | + + + + | (no date) | clopidogrel 75 MG Oral | [facility] | | | Tablet | [facility] | + + + + | (no date) | FENOFIBRATE,MICRONIZED | [facility] | | | | [facility] | + + + + | (no date) | fenofibrate 134 MG Oral | [facility] | | | Capsule | [facility] | + + + + | (no date) | FUROSEMIDE | [facility] | | | | [facility] | + + + + | (no date) | furosemide 20 MG Oral | [facility] | | | Tablet | [facility] | + + + + | (no date) | GABAPENTIN | [facility] | | | | [facility] | + + + + | (no date) | gabapentin 300 MG Oral | [facility] | | | Capsule | [facility] | + + + + | (no date) | PANTOPRAZOLE SODIUM | [facility] | | | | [facility] | + + + + | (no ) | pantoprazole 40 MG Delayed | [facility] | | | Release Oral Tablet | [facility] | + + + + | (no ) | HYDROCHLOROTHIAZIDE | [facility] | | | | [facility] | + + + + | (no ) | hydrochlorothiazide 12.5 | [facility] | | | MG Oral Tablet | [facility] | + + + + | (no ) | ATORVASTATIN CALCIUM | [facility] | | | | [facility] | + + + + | (no ) | atorvastatin 40 MG Oral | [facility] | | | Tablet | [facility] | + + + + | (no date) | TRAZODONE HCL | [facility] | | | | [facility] | + + + + | (no date) | trazodone hydrochloride | [facility] | | | 100 MG Oral Tablet | [facility] | + + + + | (no date) | ALBUTEROL SULFATE | [facility] | | | | [facility] | + + + + | (no date) | [id number] 200 ACTUAT | [facility] | | | albuterol 0.09 MG/ACTUAT | [facility] | | | Metered Dose I | | + + + + | (no date) | METFORMIN HCL | [facility] | | | | [facility] | + + + + | (no date) | metformin hydrochloride | [facility] | | | 1000 MG Oral Tablet | [facility] | + + + + | (no date) | HYDRALAZINE HCL | [facility] | | | | [facility] | + + + + | (no date) | hydralazine hydrochloride | [facility] | | | 100 MG Oral Tablet | [facility] | + + + + | (no date) | LEVOTHYROXINE SODIUM | [facility] | | | | [facility] | + + + + | (no date) | levothyroxine sodium 0.075 | [facility] | | | MG Oral Tablet | [facility] | + + + + | (no date) | 100 ACTUAT Beclomethasone | [facility] | | | Dipropionate 0.08 MG/ACTUAT | [facility] | | | Metere | | + + + + | (no date) | BECLOMETHASONE | [facility] | | | DIPROPIONATE | [facility] | + + + + Problems + + + + | date | description | facility | + + + + | 2025-07-13 00:00 | Fluid overload | [facility] | | | | [facility] | + + + + | 2025-07-13 00:00 | Edema | [facility] | | | | [facility] | + + + + Procedures No information. Results/Labs +--------+--------+ +---------+--------+---------+ | test | date | facility | value | unit | notes | +--------+--------+ +---------+--------+---------+ + + | Result panel 1 | + + + + + +--------+ + + | Automated | 2025-07-13 | | 74.8 | (missing) | (missing) | | blood | 12:15 | [facility] | | | | | neutrophil | [facility] | | | | | count as | | [facility] | | | | | percentage | | Hospital | | | | | of total | | | | | | | leukocytes | | | | | | + + + +--------+ + + + + | Result panel 2 | + + + + + +--------+ + + | Automated | 2025-07-13 | | 15.3 | (missing) | (missing) | | blood | 12:15 | [facility] | | | | | lymphocyte | [facility] | | | | | count as | | [facility] | | | | | percentage | | Hospital | | | | | ot total | | | | | | | leukocytes | | | | | | + + + +--------+ + + + + | Result panel 3 | + + + + + +-------+ + + | Automated | 2025-07-13 | | 8.3 | (missing) | (missing) | | blood | 12:15 | [facility] | | | | | monocyte | [facility] | | | | | count as | | [facility] | | | | | percentage | | Hospital | | | | | of total | | | | | | | leukocytes | | | | | | + + + +-------+ + + + + | Result panel 4 | + + + + + +-------+ + + | Automated | 2025-07-13 | | 0.5 | (missing) | (missing) | | blood | 12:15 | [facility] | | | | | eosinophil | [facility] | | [facility] | | count as | | [facility] | | | | | percentage | | Hospital | | | | | of total | | | | | | | leukocytes | | | | | | + + + +-------+ + + + + | Result panel 5 | + + + + + +-------+ + + | Automated | 2025-07-13 | | 0.4 | (missing) | (missing) | | blood | 12:15 | [facility] | | | | | basophil | [facility] | | [facility] | | count as | | [facility] | | | | | percentage | | Hospital | | | | | of total | | | | | | | leukocytes | | | | | | + + + +-------+ + + + + | Result panel 6 | + + + + + +------+ + + | Serum or | 2025-07-13 | | 43 | (missing) | (missing) | | plasma | 12:15 | [facility] | | | | | glucose | [facility] | | | | | measurement | | [facility] | | | | | (mass/volume | | Hospital | | | | | ) | | | | | | + + + +------+ + + + + | Result panel 7 | + + + + + +------+ + + | Serum or | 2025-07-13 | | 23 | (missing) | (missing) | | plasma urea | 12:15 | [facility] | | | | | nitrogen | [facility] | | | | | measurement | | [facility] | | | | | (mass/volume | | Hospital | | | | | ) | | | | | | + + + +------+ + + + + | Result panel 8 | + + + + + +--------+ + + | Serum or | 2025-07-13 | | 1.90 | (missing) | (missing) | | plasma | 12:15 | [facility] | | | | | creatinine | [facility] | | | | | measurement | | [facility] | | | | | (mass/volume | | Hospital | | | | | ) | | | | | | + + + +--------+ + + + + | Result panel 9 | + + + + + +------+ + + | Glomerular | 2025-07-13 | | 38 | (missing) | (missing) | | filtration | 12:15 | [facility] | | | | | rate/1.73 sq | [facility] | | | | | M.predicted | | [facility] | | | | | [Volume | | Hospital | | | | | Rate/Area] | [...] 10 | + + + + + +---------+ + + | Serum or | 2025-07-13 | | 12.10 | (missing) | (missing) | | plasma urea | 12:15 | [facility] | | | | | nitrogen/cre | | [facility] | | | | | atinine mass | | [facility] | | | | | ratio | | Hospital | | | | + + + +---------+ + + + + | Result panel 11 | + + + + + +---------+ + + | Blood | 2025-07-13 | | 12.72 | (missing) | (missing) | | leukocytes | 12:15 | [facility] | | | | | automated | [facility] | | | | | count | | [facility] | | | | | (number/volu | | Hospital | | | | | me) | | | | | | + + + +---------+ + + + + | Result panel 12 | + + + + + +-------+ + + | Serum or | 2025-07-13 | | 141 | (missing) | (missing) | | plasma | 12:15 | [facility] | | | | | sodium | | [facility] | | | | | measurement | | [facility] | | | | | (moles/volum | | Hospital | | | | | e) | | | | | | + + + +-------+ + + + + | Result panel 13 | + + + + + +-------+ + + | Serum or | 2025-07-13 | | 4.8 | (missing) | (missing) | | plasma | 12:15 | [facility] | | | | | potassium | | [facility] | | | | | measurement | | [facility] | | | | | (moles/volum | | Hospital | | | | | e) | | | | | | + + + +-------+ + + + + | Result panel 14 | + + + + + +-------+ + + | Serum or | 2025-07-13 | | 105 | (missing) | (missing) | | plasma | 12:15 | [facility] | | | | | chloride | | [facility] | | | | | measurement | | [facility] | | | | | (moles/volum | | Hospital | | | | | e) | | | | | | + + + +-------+ + + + + | Result panel 15 | + + + + + +------+ + + | Serum or | 2025-07-13 | | 25 | (missing) | (missing) | | plasma | 12:15 | [facility] | | | | | carbon | | [facility] | | | | | dioxide, | | [facility] | | | | | total | | Hospital | | | | | measurement | | | | | | | (moles/volum | | | | | | | e) | | | | | | + + + +------+ + + + + | Result panel 16 | + + + + + +--------+ + + | Serum or | 2025-07-13 | | 15.8 | (missing) | (missing) | | plasma anion | 12:15 | [facility] | | | | | gap 4 | [facility] | | | [facility] | | | | + + + +--------+ + + + + | Result panel 17 | + + + + + +-------+ + + | Serum or | 2025-07-13 | | 9.0 | (missing) | (missing) | | plasma | 12:15 | [facility] | | | | | calcium | | [facility] | | | | | measurement | | [facility] | | | | | (mass/volume | | Hospital | | | | | ) | | | | | | + + + +-------+ + + + + | Result panel 18 | + + + + + +-------+ + + | Serum or | 2025-07-13 | | 1.6 | (missing) | (missing) | | plasma | 12:15 | [facility] | | | | | magnesium | [facility] | | | | | measurement | | [facility] | | | | | (mass/volume | | Hospital | | | | | ) | | | | | | + + + +-------+ + + + + | Result panel 19 | + + + + + +-------+ + + | Serum or | 2025-07-13 | | 7.4 | (missing) | (missing) | | plasma | 12:15 | [facility] | | | | | protein | [facility] | | | | | measurement | | [facility] | | | | | (mass/volume | | Hospital | | | | | ) | | | | | | + + + +-------+ + + + + | Result panel 20 | + + + + + +-------+ + + | Serum or | 2025-07-13 | | 3.4 | (missing) | (missing) | | plasma | 12:15 | [facility] | | | | | albumin | | [facility] | | [facility] | | measurement | | [facility] | | | | | (mass/volume | | Hospital | | | | | ) | | | | | | + + + +-------+ + + + + | Result panel 21 | + + + + + +-------+ + + | Serum | 2025-07-13 | | 4.0 | (missing) | (missing) | | globulin | 12:15 | [facility] | | | | | measurement | | - [facility] | | | | | (mass/volume | | [facility] | | | | ) | | [facility] | | | | + + + +-------+ + + + + | Result panel 22 | + + + + + +--------+ + + | Blood | 2025-07-13 | | 4.34 | (missing) | (missing) | | erythrocytes | 12:15 | [facility] | | | | | automated | [facility] | | [facility] | | count | | [facility] | | | | | (number/volu | | Hospital | | | | | me) | | | | | | + + + +--------+ + + + + | Result panel 23 | + + + + + +--------+ + + | Serum or | 2025-07-13 | | 0.85 | (missing) | (missing) | | plasma | 12:15 | [facility] | | | | | albumin/glob | [facility] | | | | | ulin mass | | [facility] | | | | | ratio | | [facility] | | | | + + + +--------+ + + + + | Result panel 24 | + + + + + +-------+ + + | Serum or | 2025-07-13 | | 0.3 | (missing) | (missing) | | plasma total | 12:15 | [facility] | | | | | bilirubin | [facility] | | | | | measurement | | [facility] | | | | | (mass/volume | | Hospital | | | | | ) | | | | | | + + + +-------+ + + + + | Result panel 25 | + + + + + +------+ + + | Serum or | 2025-07-13 | | 12 | (missing) | (missing) | | plasma | 12:15 | [facility] | | | | | aspartate | [facility] | | | | | aminotransfe | | [facility] | | | | | rase | | Hospital | | | | [...] +------+ + + | Serum or | 2025-07-13 | | 12 | (missing) | (missing) | | plasma | 12:15 | [facility] | | | | | alanine | | [facility] | | | | | aminotransfe | | [facility] | | | | | rase | | Hospital | | | | [...] +------+ + + | Serum or | 2025-07-13 | | 88 | (missing) | (missing) | | plasma | 12:15 | [facility] | | | | | alkaline | [facility] | | | | | phosphatase | | [facility] | | | | | measurement | | Hospital | | | | | (enzymatic | | | | | | | activity/vol | | | | | | | ume) | | | | | | + + + +------+ + + + + | Result panel 28 | + + + + + +--------+ + + | Serum or | 2025-07-13 | | 33.9 | (missing) | (missing) | | plasma | 12:15 | [facility] | | | | | cardiac | [facility] | | | | | troponin I | | [facility] | | | | | measurement | | Hospital | | | | | by high | | | | | | | senstivity | | | | | | | method | | | | | | | (mass/volume | | | | | | | ) | | | | | | + + + +--------+ + + + + | Result panel 29 | + + + + + +--------+ + + | Blood | 2025-07-13 | | 12.0 | (missing) | (missing) | | hemoglobin | 12:15 | [facility] | | | | | measurement | | - [facility] | | | | | (mass/volume | | [facility] | | | | ) | | [facility] | | | | + + + +--------+ + + + + | Result panel 30 | + + + + + +--------+ + + | Automated | 2025-07-13 | | 37.3 | (missing) | (missing) | | blood | 12:15 | [facility] | | | | | hematocrit | [facility] | | [facility] | | | | + + + +--------+ + + + + | Result panel 31 | + + + + + +--------+ + + | Automated | 2025-07-13 | | 85.9 | (missing) | (missing) | | erythrocyte | 12:15 | [facility] | | | | | mean | | [facility] | | | | | corpuscular | | [facility] | | | | | volume | | Hospital | | | | + + + +--------+ + + + + | Result panel 32 | + + + + + +--------+ + + | Automated | 2025-07-13 | | 27.6 | (missing) | (missing) | | erythrocyte | 12:15 | [facility] | | | | | mean | | [facility] | | | | | corpuscular | | [facility] | | | | | hemoglobin | | Hospital | | | | | (mass per | | | | | | | erythrocyte) | | | | | | | | | | | | | + + + +--------+ + + + + | Result panel 33 | + + + + + +--------+ + + | Automated | 2025-07-13 | | 32.2 | (missing) | (missing) | | erythrocyte | 12:15 | [facility] | | | | | mean | | - [facility] | | | | | corpuscular | | [facility] | | | | | hemoglobin | | Hospital | | | | | concentratio | | | | | | | n | | | | | | | measurement | | | | | | | (mass/volume | | | | | | | ) | | | | | | + + + +--------+ + + + + | Result panel 34 | + + + + + +-------+ + + | Automated | 2025-07-13 | | 238 | (missing) | (missing) | | blood | 12:15 | [facility] | | | | | platelet | [facility] | | [facility] | count | | [facility] | | | | | (count/volum | | Hospital | | | | | e) | | | | | | + + + +-------+ + + + + | Result panel 35 | + + + + + +-------+ + + | Whole blood | 2025-07-13 | | 163 | (missing) | (missing) | | glucose | 14:19 | [facility] | | | | | measurement | | [facility] | | | | | using | | [facility] | | | | | handheld | | Hospital | | | | | analyzer | | | | | | | (mass/volume | | | | | | | ) | | | | | | + + + +-------+ + + Social History + + + + | date | description | facility | + + + + | (no date) | Current every day smoker | [facility] | | | | [facility] | + + + + Vital Signs No information."
--- OUTSIDE RECORDS SUMMARY | ~2025-08-01 | XMS | Continuity of Care Document ---
Demographics + + + | Address | [address] | | | [place] [address] | + + + | Preferred Language | Unknown | + + + | Marital Status | | + + + | Hoahaoism Affiliation | Unknown | + + + | Race | White | + + + | Ethnic Group | Not or | + + + Author + + + | Author | [facility] | + + + | Organization | [facility] | + + + | Address | [address] | | | [place] [address] | + + + | Phone | | + + + Care Team Providers + + + + | Care Tamale Machine Feeder Name | Role | Phone | + + + + Unavailable | Unavailable | + + + + Unavailable | Unavailable | + + + + Allergies No information. Encounters No information. Functional Status No information. Immunizations + + + + | date | description | facility | + + + + | (no date) | No vaccine administered | [facility] | | | | [facility] | + + + + Medications + + + + | date | description | facility | + + + + | (no date) | FAMOTIDINE | [facility] | | | | [facility] | + + + + | (no date) | famotidine 40 MG Oral | [facility] | | | Tablet [Pepcid] | [facility] | + + + + | (no date) | HUM INSULIN NPH/REG | [facility] | | | INSULIN HM | [facility] | + + + + | (no date) | insulin isophane, human 70 | [facility] | | | UNT/ML / insulin, regular, | [facility] | | | human | | + + + + | (no date) | 120 ACTUAT albuterol 0.1 | [facility] | | | MG/ACTUAT / ipratropium | [facility] | | | bromide 0.0 | | + + + + | (no date) | IPRATROPIUM/ALBUTEROL | [facility] | | | SULFATE | [facility] | + + + + | (no date) | 120 ACTUAT budesonide 0.08 | [facility] | | | MG/ACTUAT / formoterol | [facility] | | | fumarate 0 | | + + + + | (no date) | BUDESONIDE/FORMOTEROL | [facility] | | | FUMARATE | [facility] | + + + + | (no date) | IPRATROPIUM/ALBUTEROL | [facility] | | | SULFATE | [facility] | + + + + | (no date) | albuterol 0.833 MG/ML / | [facility] | | | ipratropium bromide 0.167 | [facility] | | | MG/ML Inha | | + + + + | (no date) | 30 ACTUAT fluticasone | [facility] | | | furoate 0.1 MG/ACTUAT / | [facility] | | | umeclidinium 0 | | + + + + | (no date) | | [facility] | | | Fluticasone/Umeclidin/Vilan | [facility] | | | ter | | + + + + | (no date) | AMLODIPINE BESYLATE | [facility] | | | | [facility] | + + + + | (no date) | amlodipine 5 MG Oral | [facility] | | | Tablet | [facility] | + + + + | (no date) | LISINOPRIL | [facility] | | | | [facility] | + + + + | (no date) | lisinopril 40 MG Oral | [facility] | | | Tablet | [facility] | + + + + | (no date) | IRBESARTAN | [facility] | | | | [facility] | + + + + | (no date) | irbesartan 75 MG Oral | [facility] | | | Tablet | [facility] | + + + + | 2025-07-13 00:00 | furosemide 20 MG Oral | [facility] | | | Tablet [Lasix] | [facility] | + + + + | (no date) | Insulin NPH Hum/Reg | [facility] | | | Insulin Hm | [facility] | + + + + | (no date) | insulin isophane, human 70 | [facility] | | | UNT/ML / insulin, regular, | [facility] | | | human | | + + + + | (no date) | ATORVASTATIN CALCIUM | [facility] | | | | [facility] | + + + + | (no date) | atorvastatin 80 MG Oral | [facility] | | | Tablet | [facility] | + + + + | (no date) | ASPIRIN | [facility] | | | | [facility] | + + + + | (no date) | aspirin 81 MG Delayed | [facility] | | | Release Oral Tablet | [facility] | + + + + | (no date) | CLOPIDOGREL BISULFATE | [facility] | | | | [facility] | + + + + | (no date) | clopidogrel 75 MG Oral | [facility] | | | Tablet | [facility] | + + + + | (no date) | FENOFIBRATE,MICRONIZED | [facility] | | | | [facility] | + + + + | (no date) | fenofibrate 134 MG Oral | [facility] | | | Capsule | [facility] | + + + + | (no date) | FUROSEMIDE | [facility] | | | | [facility] | + + + + | (no date) | furosemide 20 MG Oral | [facility] | | | Tablet | [facility] | + + + + | (no date) | GABAPENTIN | [facility] | | | | [facility] | + + + + | (no date) | gabapentin 300 MG Oral | [facility] | | | Capsule | [facility] | + + + + | (no date) | PANTOPRAZOLE SODIUM | [facility] | | | | [facility] | + + + + | (no ) | pantoprazole 40 MG Delayed | [facility] | | | Release Oral Tablet | [facility] | + + + + | (no ) | HYDROCHLOROTHIAZIDE | [facility] | | | | [facility] | + + + + | (no ) | hydrochlorothiazide 12.5 | [facility] | | | MG Oral Tablet | [facility] | + + + + | (no ) | ATORVASTATIN CALCIUM | [facility] | | | | [facility] | + + + + | (no ) | atorvastatin 40 MG Oral | [facility] | | | Tablet | [facility] | + + + + | (no date) | TRAZODONE HCL | [facility] | | | | [facility] | + + + + | (no date) | trazodone hydrochloride | [facility] | | | 100 MG Oral Tablet | [facility] | + + + + | (no date) | ALBUTEROL SULFATE | [facility] | | | | [facility] | + + + + | (no date) | [id number] 200 ACTUAT | [facility] | | | albuterol 0.09 MG/ACTUAT | [facility] | | | Metered Dose I | | + + + + | (no date) | METFORMIN HCL | [facility] | | | | [facility] | + + + + | (no date) | metformin hydrochloride | [facility] | | | 1000 MG Oral Tablet | [facility] | + + + + | (no date) | HYDRALAZINE HCL | [facility] | | | | [facility] | + + + + | (no date) | hydralazine hydrochloride | [facility] | | | 100 MG Oral Tablet | [facility] | + + + + | (no date) | LEVOTHYROXINE SODIUM | [facility] | | | | [facility] | + + + + | (no date) | levothyroxine sodium 0.075 | [facility] | | | MG Oral Tablet | [facility] | + + + + | (no date) | 100 ACTUAT Beclomethasone | [facility] | | | Dipropionate 0.08 MG/ACTUAT | [facility] | | | [place] | | + + + + | (no date) | BECLOMETHASONE | [facility] | | | DIPROPIONATE | [facility] | + + + + Problems + + + + | date | description | facility | + + + + | 2025-07-13 00:00 | Fluid overload | [facility] | | | | [facility] | [...]
[2025-08-01] MEDS ORDERED: ALBUTEROL/IPRATROPIUM 3 ML NEB INH ONE (19:45)
[2025-08-01 20:23] LABS: BASOPHILS 0.5 % (0.2-1.2); EOSINOPHILS 0.8 % (0.8-7.0); LYMPHOCYTES 19.8 % (21.8-53.1); MCH 27.3 PG (25.7-32.2); MCHC 32.1 g/dL (32.3-36.5); MCV 85.2 fL (79.0-92.2); MONOCYTES 8.0 % (5.3-12.2); NEUTROPHILS 69.9 % (34.0-67.9); RBC 4.39 M/uL (4.63-6.08)
[2025-08-01 20:59] LABS: ALT (SGPT) 19.0 U/L (14-59); AST (SGOT) 14.0 U/L (15-37); GLOMERULAR FILTRATION RATE,EST 24.0 mL/min (>60); PROTEIN, TOTAL 7.9 g/dL (6.4-8.2); UREA NITROGEN 34.0 mg/dL (7-18)
[2025-08-01 21:11] LABS: CORONAVIRUS COVID-19 AG NEGATIVE (NEGATIVE)
[2025-08-01] MEDS ORDERED: FUROSEMIDE 100 MG/10 ML VIAL IV ONE (21:30)
[2025-08-01] MEDS ORDERED: ALBUTEROL SULFATE 0.5% 2.5 MG/0.5 ML VIAL INH ONE (21:30)
[2025-08-01] MEDS ORDERED: CALCIUM GLUCONATE 1,000 MG/10 ML VIAL IV ONE (21:30)
[2025-08-01 22:02] LABS: BLOOD/HGB, URINE NEGATIVE (Negative); KETONE, URINE NEGATIVE (Negative); LEUK ESTERASE, URINE NEGATIVE (negative); NITRITE, URINE NEGATIVE (negative)
[2025-08-01 22:17] LABS: EPITHELIAL CELLS, URINE NS /lpf (0-1+)
[2025-08-01 22:18] LABS: CRYSTALS, URINE NONE SEEN (0-1+)
[2025-08-01 22:19] LABS: BACTERIA, URINE RARE /hpf (negative); CASTS, URINE HYALINE 1+ \\lpf; REFLEX CULTURE, URINE No (No)
[2025-08-01 23:23] LABS: GLOMERULAR FILTRATION RATE,EST 24.0 mL/min (>60); UREA NITROGEN 36.0 mg/dL (7-18)
[2025-08-02] VITALS (14 sets, daily range): BP systolic 116–173; BP diastolic 56–86
[2025-08-02 00:33] LABS: LACTIC ACID, BLOOD 1.7 mmol/L (0.4-2.0)
[2025-08-02] MEDS ORDERED: ARFORMOTEROL TARTRATE 15 MCG/2 ML VIAL INH SCH (00:49)
[2025-08-02] MEDS ORDERED: BUDESONIDE 0.5 MG/2 ML VIAL INH SCH (00:50)
[2025-08-02] MEDS ORDERED: ALBUTEROL SULFATE 0.083% 3 ML VIAL INH PRN (01:00)
--- NOTE | 2025-08-02 02:06 | NUR ---
0145, ADMITTED TO ROOM 119 FROM ER. O2 1LNC IN PLACE, LUNGS DIM AT BASES, SOB WITH EXERTION NOTED. ALERT AND ORIENTED. NO UPPER TEETH, MISSING SOME LOWER FRONT TEETH. LOWER LIP WITH FIRM BOIL IN PLACE. SCALY DRY SKIN. RED BUTTOCKS AREA BLANCHEABLE. SL LAC PATENT. EDEMA TO LOWER LEGS 1+ PITTING NOTED DURING ASSESSMENT. RT IN ROOM, PT O2 NOT CHRONIC, CPOX ON AT BEDSIDE.
--- NOTE | 2025-08-02 02:26 | NUR ---
PT JUST ARRIVED ON THE FLOOR FROM THE ER. GOT PT ICE, REQUESTED. PT HAS CALL LIGHT WITHIN REACH AND RT IN ROOM, WELL HIS RN.
[2025-08-02] MEDS ORDERED: LORazepam 0.5 MG TAB PO ONE (02:45)
[2025-08-02] MEDS ORDERED: ACETAMINOPHEN 325 MG TAB PO PRN ×2 (02:45→10:45)
[2025-08-02] MEDS ORDERED: ONDANSETRON 4 MG TAB ODT SL PRN (02:45)
--- NOTE | 2025-08-02 02:54 | NUR ---
ADMISSION COMPLETE, pt AWAKE AND RESTING IN BED WANTING SOMETHING TO EAT-PROVIDED BY PRIMARY RN. TELE IN PLACE, TACHY PER MONITOR. PRIMARY RN RECENTLY OFF PHONE WITH MD AND NOW IN ROOM FOR MED PASS. pt'S MEDS IN LOCK BOX, pt BROUGHT MANY MED BOTTLES W/ NEW NSULIN NEEDLES AND GLUCOMETER. INSTRUCTED TO HAVE SISTER TAKE HOME MEDS/SUPPLES WHEN SHE VISITS LATER TODAY, PT VERBALIZED UNDERSTANDING. PRIMARY RN AWARE.
--- NOTE | 2025-08-02 03:45 | NUR ---
PT ANXIOUS, REASSURED, TALKED TO SISTER SEVERAL TIMES, USING CPAP. LUNGS WITH EXP WHEEZING AND SOB WITH EXERTION PRESENT, REASSURED WITH MINIMUM OF EFFECT. WAS GIVEN ATIVAN PER ANXIETY AND HYDRALAZINE HOME DOSE PER HR OF 120-130'S, TELE#[address] SANDWICH BOX GIVEN, ATE 100%. UP TO EDGE OF BED, USED URINAL, VOIDED DARK STRONG SMELLING URINE, INCREAED TACHEIPNIA AND TACHYCHARDIA WITH EXERTION. BACK TO BED, HRSTILL ON 127-130'S DENIES CP. WATCHING TV, DENIES FEELING SLEEPY, LESS ANXIOYS, MULTIPLE REASSURANCES AND PRAISE FOR EFFORTS GIVEN. . LE ELEVATED, BED ALRM IN PLACE, AWARE OF DAILY STANDING WEIGHT DUE TO CHF, STATED UNDERSTANDING, NO FURTHER REQUEST, DENIES C/O PAIN
[2025-08-02] MEDS ORDERED: ALBUTEROL/IPRATROPIUM 3 ML NEB INH SCH (04:00)
--- NOTE | 2025-08-02 04:04 | NUR ---
DR STEVENS NOTIFIED OF PTS SUSTAINED HR AT 127-130, BP 150/77. PT DROWSY, DENIES CP. NEW ORDERS FOR LOPRESSOR IV 5,G IV ONCE
[2025-08-02] MEDS ORDERED: METOPROLOL TARTRATE 5 MG/5 ML VIAL IV ONE (04:15)
--- NOTE | 2025-08-02 04:24 | NUR ---
DROWSY, WENT TO SLEEP WHILE EXPLAINED NEW IV MED. PULSE WAS 126 AT THAT TIME, PULSE NOW DECRESING PER MONITOR AND TELE, HR 111 AT THIST MELVIN
[2025-08-02 05:17] LABS: MCH 27.3 PG (25.7-32.2); MCHC 31.9 g/dL (32.3-36.5); MCV 85.4 fL (79.0-92.2); RBC 4.11 M/uL (4.63-6.08)
--- NOTE | 2025-08-02 05:26 | NUR ---
RT in room, pt getting a neb tx. Tacheipneic at 32 bpm, tachychardic as per tele reading, 128 hr, Increased harsh moist non productive cough, increased arm tremors, increased anxiety. Pt asking for Xanax which she had declined earlier. Medicated with Xanax at this time. Pt reassured and efforts praised. On room air.
[2025-08-02 05:32] LABS: GLOMERULAR FILTRATION RATE,EST 21.0 mL/min (>60); UREA NITROGEN 40.0 mg/dL (7-18)
[2025-08-02 05:46] LABS: BASOPHILS 0.2 % (0.2-1.2); EOSINOPHILS 0 % (0.8-7.0); LYMPHOCYTES 3.3 % (21.8-53.1); MONOCYTES 0.6 % (5.3-12.2); NEUTROPHILS 94.5 % (34.0-67.9)
[2025-08-02] MEDS ORDERED: ATORVASTATIN CA40 MG PO (07:05)
[2025-08-02] MEDS ORDERED: LEVOTHYROXINE75 MCG PO (07:06)
--- NOTE | 2025-08-02 07:23 | NUR ---
Pt report received from SLAVA Spear.
[2025-08-02] MEDS ORDERED: Calcium Gluconate in NS 1,000 MG/50 ML BAG IV ONE (07:45)
[2025-08-02 09:16] LABS: GLOMERULAR FILTRATION RATE,EST 22.0 mL/min (>60); UREA NITROGEN 43.0 mg/dL (7-18)
--- NOTE | 2025-08-02 09:39 | NUR ---
PT WANTED TO SIT IN THE CHAIR, REPORTED THE BED WAS TOO HOT FOR HIM. ALSO GOT PT FRESH ICE WATER AND ICE CHIPS, REQUESTED. PT HAS CALL LIGHT WITH HIM.
[2025-08-02] MEDS ORDERED: DEXTROSE 5% 1,000 ML IV PRN (10:45)
[2025-08-02] MEDS ORDERED: GLUCAGON,HUMAN RECOMBINANT 1 MG/ML VIAL SUB-Q PRN (10:45)
[2025-08-02] MEDS ORDERED: IBLOOD GLUCOSE TEST STRIP 1 EA TEST XX PRN (10:45)
[2025-08-02] MEDS ORDERED: DEXTROSE 50% 50 ML SYR IV PRN ×2 (10:45)
[2025-08-02] MEDS ORDERED: SODIUM ZIRCONIUM CYCLOSILICATE 10 GM PACK PO SCH (11:00)
--- NOTE | 2025-08-02 11:50 | NUR ---
While in for reassessment of IV Calcium gluconate, I noted that the bag of Calcium gluconate was still full. Assessed the IV pump and noted that the clamp was still closed on the secondary line for the calcium gluconate. The IV pump did not alarm as the primary line was running instead. I notified Dr. Adrian that this med did not get administered until now, and I reprogrammed the pump and made sure all the clamps were open. Calcium gluconate is now running at ordered rate (Pt received just shy of 50ml of NS instead, initially).
[2025-08-02] MEDS ORDERED: PHARMACY RENAL DOSE ADJUSTMENT 1 DOSE MISC PO SCH (12:00)
[2025-08-02] MEDS ORDERED: IBLOOD GLUCOSE TEST STRIP 1 EA TEST VI SCH (12:00)
[2025-08-02] MEDS ORDERED: INSULIN LISPRO 100 UNIT/ML ML SUB-Q SCH (12:00)
--- NOTE | 2025-08-02 13:01 | EKG ---
[facility] [address] [place] [address] Signed Normal sinus rhythm T wave abnormality, consider lateral ischemia Abnormal ECG When compared with ECG of 13-JUL-2025 11:52, T wave inversion more evident in Lateral leads Confirmed by Ciro Stevens MD () on 08/02/2025 1:01:30 PM Electronically Signed By: CIRO STEVENS MD 08/02/25 1301 PATIENT NAME: NAZARIO BROWN BRANDON Electrocardiogram DATE OF : 55 PHYSICIAN: CIRO STEVENS MD REPORT #: [id number] REPORT IS CONFIDENTIAL AND NOT TO BE RELEASED WITHOUT AUTHORIZATION
--- NOTE | 2025-08-02 13:02 | EKG ---
[facility] [address] [place] [address] Signed Sinus tachycardia Septal infarct , age undetermined ST \T\ T wave abnormality, consider lateral ischemia Abnormal ECG When compared with ECG of 01-AUG-2025 20:04, No significant change was found Confirmed by Ciro Stevens MD () on 08/02/2025 1:02:01 PM Electronically Signed By: CIRO STEVENS MD 08/02/25 1302 PATIENT NAME: NAZARIO BROWN Electrocardiogram DATE OF : 55 PHYSICIAN: CIRO STEVENS MD REPORT #: [id number] REPORT IS CONFIDENTIAL AND NOT TO BE RELEASED WITHOUT AUTHORIZATION
[2025-08-02] MEDS ORDERED: NICOTINE 21 MG/24 HR 1 EA TDSY TD SCH (13:05)
[2025-08-02] MEDS ORDERED: LEVOTHYROXINE SODIUM 75 MCG TAB PO SCH (13:18)
[2025-08-02] MEDS ORDERED: ATORVASTATIN 40 MG TAB PO SCH (13:18)
[2025-08-02] MEDS ORDERED: CLOPIDOGREL BISULFATE 75 MG TAB PO SCH (13:18)
[2025-08-02 13:36] LABS: GLOMERULAR FILTRATION RATE,EST 21.0 mL/min (>60); UREA NITROGEN 51.0 mg/dL (7-18)
--- NOTE | 2025-08-02 14:31 | NUR ---
ASSUMED CARE OF PATIENT, THIS RN RECEIVED REPORT FROM SLAVA GROVE. PT IV ALARMING, MEDS COMPLETED, IV SALINE LOCKED WITHOUT ANY ISSUES/PAIN. PT DENIES ANY IMMEDIATE NEEDS, DISCUSSED GETTING A SHOWER TODAY AND PATIENT WANTED TO WAIT TILL ALITTLE LATER. CALL LIGHT WITHIN REACH, ALL PT CARE NEEDS MET AT THIS TIME.
--- NOTE | 2025-08-02 15:31 | NUR ---
THIS RN INTO ROOM TO GIVE MEDS, BP 167/86, HR 123. PT WAS JUST GETTING UP WITH NURSING STAFF AND HR WENT TO 138 WITH EXERTION. PT DENIES ANY NEEDS AT THIS TIME, FRESH ICE WATER PROVIDED. FOCUS ASSESSMENT COMPLETE - SEE CHARTING. ALL PT CARE NEEDS MET, CALL LIGHT WITHIN REACH.
[2025-08-02] MEDS ORDERED: METOPROLOL TARTRATE 25 MG TAB PO SCH (15:45)
[2025-08-02 17:19] LABS: GLOMERULAR FILTRATION RATE,EST 23.0 mL/min (>60); UREA NITROGEN 52.0 mg/dL (7-18)
[2025-08-02] MEDS ORDERED: INSULIN LISPRO 100 UNIT/ML ML SUB-Q ONE (17:30)
--- NOTE | 2025-08-02 17:54 | NUR ---
MD INFORMED OF PATIENT HAVING ELEVATED BLOOD SUGAR STILL FOR DINNER CHECK. PER MD, ORDER FOR LISPRO 5UNITS ONCE ALONG WITH SLIDING SCALE INSULIN, TOTAL OF 18 UNITS TO BE GIVEN WITH DINNER. ORDERS INPUT BY THIS RN. PATIENT STATES HE IS HAVING SEVERE HEARTBURN AFTER DINNER, NIO FOR MILK OF MAG ORDERED FOR PATIENT FOR PRN HEARTBURN. PT SITTING UP IN CHAIR AT THIS TIME. ALL PT CARE NEEDS MET, WATCHING TV. CALL LIGHT WITHIN REACH.
[2025-08-02] MEDS ORDERED: MAGNESIUM HYDROXIDE/AL HYDROX 30 ML CUP PO PRN (18:00)
[2025-08-02] MEDS ORDERED: FUROSEMIDE 20 MG/2 ML VIAL IV ONE (18:45)
--- NOTE | 2025-08-02 20:27 | NUR ---
Awake, alert and oriented x4. Up in chair, [facility] vitals and assessments. RT in room, doing nebs, Pt used Coronet. Lungs with faint upper exp wheezing present. Tele#[address], Sinus tach rhythm. Denies c/o CP, slight SOB noted with exertion. recuperated easily. Abd large ROLAN, LBM 08/01. Received Lasix earlier, voiding using urinal QS. Edema to LE 1+ much inproved elevated. Pt in chair watchng tv, CPOX on at bedside and CPAP settings as per RT. Took meds w/o problems. Aware of fluid restriction. Uses urinal, voided large amount of clear yellow urine
[2025-08-02] MEDS ORDERED: INSULIN GLARGINE-YFGN 100 UNIT/ML ML SUB-Q SCH (21:00)
[2025-08-02] MEDS ORDERED: AMLODIPINE BESYLATE 5 MG TAB PO SCH (21:00)
--- NOTE | 2025-08-02 21:10 | NUR ---
CBG 325, RECEIVED 9 UNITS SS INSULIN PLUS GARGLINE INSULIN SCHEDULED. PT IN CHAIR, LEGS ELEVATED WAS ON ROOM AIR, CPOX ON AT BEDSIDE, DESSATTED TO 76 WHEN PLACED ON O2 3LNC. INSTRUCTED ON CDB. STATED OK, NO C/O PAIN
[2025-08-02 21:12] LABS: GLOMERULAR FILTRATION RATE,EST 24.0 mL/min (>60); UREA NITROGEN 56.0 mg/dL (7-18)
--- NOTE | 2025-08-02 22:44 | NUR ---
IN CHAIR, O2 3LNC, WILL BE PLACED ON CPAP/BIPAP WITH BLEEDING IN O2. CPOX ON AT BEDSIDE, LEGS ELEVATED. NO C/O PAIN, TELE#[address]
--- NOTE | 2025-08-02 23:54 | NUR ---
resting, eyes closed, using CPAP/BIPAP settings 14 over 6, with bleeding in O2, no distress, tolerating mask well. cpox on at bedside. legs elevated
[2025-08-03] VITALS (10 sets, daily range): BP systolic 129–161; BP diastolic 70–86
--- NOTE | 2025-08-03 00:30 | NUR ---
PATIENT CALLED. SBA PATIENT UP FROM CHAIR TO USE THE URINAL VOIDED 250ML YELLOW URINE. PATIENT IS BACK IN CHAIR. ALARM ACTIVATED FOR SAFETY. PATIENT ASKED FOR CRACKERS. PRIMARY RN NOTIFIED AND OKAYED. PROVIDED 1 RADHA CRACKER.
--- NOTE | 2025-08-03 02:42 | NUR ---
PT IN CHAIR, USING CPAP/BIPAP, NO BLEEDING O2 AT THIS TIME. SATS 93%, AWAKENS EASILY
[2025-08-03 05:32] LABS: BASOPHILS 0.3 % (0.2-1.2); EOSINOPHILS 0 % (0.8-7.0); LYMPHOCYTES 11.1 % (21.8-53.1); MCH 27.6 PG (25.7-32.2); MCHC 32.4 g/dL (32.3-36.5); MCV 85.1 fL (79.0-92.2); MONOCYTES 9.4 % (5.3-12.2); NEUTROPHILS 78.1 % (34.0-67.9); RBC 4.24 M/uL (4.63-6.08)
[2025-08-03 05:49] LABS: ALT (SGPT) 16.0 U/L (14-59); AST (SGOT) 18.0 U/L (15-37); GLOMERULAR FILTRATION RATE,EST 26.0 mL/min (>60); PHOSPHORUS, INORGANIC 4.4 mg/dL (2.5-4.9); PROTEIN, TOTAL 7.3 g/dL (6.4-8.2); UREA NITROGEN 54.0 mg/dL (7-18)
--- NOTE | 2025-08-03 07:03 | NUR ---
REPORT RECEIVED FROM HEALTH CARE MARKETING SPECIALIST RN SANDRITA. PATIENT IS SITTING IN THE CHAIR WITH BILATERAL LOWER EXTREMITIES ELEVATED. PATIENT WITH EYES CLOSED. CPAP/BIPAP ON THE PATIENT FACE. CPOX AT BEDSIDE. CALL LIGHT AND PERSONAL BELONGINGS ARE WITHIN REACH.
[2025-08-03] MEDS ORDERED: predniSONE 20 MG TAB PO SCH (08:00)
[2025-08-03] MEDS ORDERED: IPRATROPIUM BROMIDE 2.5 ML VIAL INH SCH (08:00)
[2025-08-03] MEDS ORDERED: ALBUTEROL/IPRATROPIUM 3 ML NEB INH SCH (08:00)
[2025-08-03] MEDS ORDERED: FUROSEMIDE 40 MG/4 ML VIAL IV SCH (09:00)
[2025-08-03] MEDS ORDERED: ENOXAPARIN SODIUM 40 MG/0.4 ML SYR SUB-Q SCH (09:00)
--- NOTE | 2025-08-03 10:03 | NUR ---
PATIENT SHOWERED WITH MINIMAL WINDER FIXER ASSISTANCE. BED LINENS AND CHAIR LINENS WERE CHANGED. FRESH GOWN AND SOCKS PROVIDED.
--- NOTE | 2025-08-03 10:09 | NUR ---
PATIENT IS SITTING IN THE CHAIR WITH BILATERAL LOWER EXTREMITIES ELEVATED. PATIENT WITH EYES OPEN AND RESPIRATIONS ARE EVEN AND UNLABORED. PATIENT IS GETTING A BREATHING TREATMENT AT THIS TIME. CALL LIGHT AND PERSONAL BELONGINGS ARE WITHIN REACH.
--- NOTE | 2025-08-03 10:38 | NUR ---
UR CLINICAL REVIEW: 2 MN FOR VERSALUS-PER TRANSIT OPERATOR MEET INPT FOR CHF/COPD WITH NEED FOR RT INTERVENTION, SERIAL MONITORING AND IV DIURESIS MEDICARE INPT 08/02/25 @ 1048 ORDER MATCHES REG NO AUTH REQUIRED PER MEDICARE GUIDELINES DISCHARGE DISPO PENDING FURTHER CASE MANAGEMENT EVALUATION
--- NOTE | 2025-08-03 11:07 | NUR ---
PATIENT IS SITTING IN THE CHAIR WITH BILATERAL LOWER EXTREMITIES ELEVATED. PATIENT WITH EYES OPEN AND RESPIRATIONS ARE EVEN AND UNLOABORED. NANCY, THE PHARMACIST IS IN THE ROOM AT THIS TIME. CALL LIGHT AND PERSONAL BELONGINGS ARE WITHIN REACH.
[2025-08-03] MEDS ORDERED: LO-DOSE ASPIRIN81 MG PO (11:50)
--- NOTE | 2025-08-03 11:50 | NUR ---
MED REC COMPLETE
--- NOTE | 2025-08-03 12:16 | NUR ---
PATIENT IS SITTING IN THE CHAIR WITH BILATERAL LOWER EXTREMITIES ELEVATED. LUNCH TRAY REMAINS IN FRONT OF THE PATIENT. TV IS ON.
--- NOTE | 2025-08-03 13:00 | NUR ---
RECIEVED SHIFT REPORT FROM SLAVA GERMAIN. PT IS AWAKE IN RECLINER, WATCHING TV. CALL LIGHT IN REACH. NO NEEDS AT THIS TIME.
--- NOTE | 2025-08-03 13:06 | NUR ---
PATIENT IS IN THEIR RECLINER WITH CALL LIGHT AND PERSONAL ITEMS WITHIN REACH. [id number] INTAKE INCLUDES FREE WATER AND LUNCH FLUID INTAKE PER FLUID RESTRICTION.
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
--- NOTE | 2025-08-03 14:00 | NUR ---
Spoke with Fabienne Akhtar at [facility]. Pt did attempt to start an evaluation, but did not follow through with paperwork needed by [facility]. She is willing to talk to him now and start the eval over. I went to his room and assisted him to call Fabienne at [facility] and they started the eval. I let her know I am faxing his letter showing he does not have a Life insurance policy.
--- NOTE | 2025-08-03 15:29 | NUR ---
PT AWAKE IN RECLINER. NO NEEDS. CALL LIGHT IN REACH.
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
--- NOTE | 2025-08-03 16:19 | NUR ---
IN ROOM TO ASSIST PT TO USE URINAL. WARM BLANKET PROVIDED. CALL LIGHT IN REACH.
--- NOTE | 2025-08-03 16:53 | NUR ---
IN ROOM TO DISCUSS POC TO PT AND VISITORS. ALL QUESTIONS ANSWERED. PT REMAINS IN RECLINER, CALL LIGHT IN REACH.
--- NOTE | 2025-08-03 18:15 | NUR ---
PT CAFE SITE ATTENDANT LIGHT REQUESTING BATHROOM. PT WAS ABLE TO AMBULATE TO AMBULATE TO BATHROOM SBA, FWW.
--- NOTE | 2025-08-03 20:37 | NUR ---
Pt up to BRP, had a large, very strong smelling formed bm. Back to chair, tolerated very well, no increased of HR or SOB noted. encouraged to elevate legs. On 2LNC. insp wheezing t/o L lung Dim R lung and faint exp wheezing. Irregular HR, tele#[address] pulse 110's. CPOX on at bedside, 92%. on fluid restriction, tolerating well. CBG 336, received 11 units SSI and 20 units Lantus. Abd large soft, ROLAN, edema to LE much improved, trace of edema at this time. Watchint tv.
--- NOTE | 2025-08-03 22:13 | NUR ---
IN CHAIR, O2 2LNC, CPOX ON AT BEDSIDE, WNL, IN CHAIR, LEGS DEPENDENT. AWARE TO ELEVATE MUCH POSSIBLE, STASED UNDERSTANDING. NO C/O PAIN, WATCHING TV
--- NOTE | 2025-08-03 23:53 | NUR ---
in chair, legs elevated, on 2LNC, cpox at bedside, sats 95%, tele#[address], HR 98-105, no resp distress. no c/o pain
[2025-08-04] VITALS (11 sets, daily range): BP systolic 128–173; BP diastolic 68–89
--- NOTE | 2025-08-04 01:47 | NUR ---
pt awakens easily, O2 titrated earlier to 1LNC, sats 90-93%. lungs still with faint exp wheezing and dim t/o on R side. no cough, voiding using urinal, medium yellow urine. In chair legs elevated. no c/o pain.
--- NOTE | 2025-08-04 01:49 | NUR ---
no sob with exertion, HR increased to 111 when up to edge of chair to void. Tele #5 in place, ST
--- NOTE | 2025-08-04 03:09 | NUR ---
USED CALL LIGHT, UP TO BRP, VOIDED AND HAD A SMALL BM. 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 BACK TO CHAIR, TOLERATED WELL, PER TELE HR INCREASED FROM 98 TO 113, NO SOB, WAFFLE CUSHION TO CHAIR. LEGS ELEVATED. TELE#[address]
[2025-08-04 05:22] LABS: BASOPHILS 0.2 % (0.2-1.2); EOSINOPHILS 0 % (0.8-7.0); LYMPHOCYTES 18.0 % (21.8-53.1); MCH 27.3 PG (25.7-32.2); MCHC 32.1 g/dL (32.3-36.5); MCV 85.0 fL (79.0-92.2); MONOCYTES 8.2 % (5.3-12.2); NEUTROPHILS 71.6 % (34.0-67.9); RBC 4.28 M/uL (4.63-6.08)
[2025-08-04 05:38] LABS: ALT (SGPT) 23.0 U/L (14-59); AST (SGOT) 21.0 U/L (15-37); GLOMERULAR FILTRATION RATE,EST 29.0 mL/min (>60); PROTEIN, TOTAL 7.3 g/dL (6.4-8.2); UREA NITROGEN 61.0 mg/dL (7-18)
--- NOTE | 2025-08-04 05:53 | NUR ---
CALL LIGHT ANSWERED. SBA WITH FWW TO STAND TO VOID IN URINAL. DAILY STANDING WEIGHT 100.7 KG. pt COUGHING AFTER ACTIVITY. SPO2 DROPS TO <87%. TITRATED TO 2L OXYGEN BY NC. VS COMPLETE. pt BACK TO CHAIR, CHAIR ALARM ON. CALL LIGHT AND PERSONAL SUPPLIES WITHIN REACH.
--- NOTE | 2025-08-04 06:00 | NUR ---
Pt in chair, tele#[address]/svt, up to 111 when up, desatted and O2 was titrated to 2L, 96% at this time, titrated down to 1LNC. no c/o pain. standing daily weight 107KG.
--- NOTE | 2025-08-04 07:53 | NUR ---
REPORT RECEIVED FROM SLAVA REMY. PATIENT SITTING UP IN HIS CHAIR. PATIENT MEDICATED BY SN MIKO FOR CBG OF 158. PATIENT IS WITHOUT FURHTER NEEDS AT THIS TIME. WHITE BOARD UPDATED. CALL LIGHT AND PERSONAL BELONGINGS ARE WITHIN REACH.
[2025-08-04] MEDS ORDERED: INSULIN LISPRO 100 UNIT/ML ML SUB-Q SCH ×2 (08:00→12:00)
--- NOTE | 2025-08-04 08:40 | NUR ---
Message from Floresita from [facility] with [facility] intake number. Intake number for [facility] referral made 08/03/25 [phone].
--- NOTE | 2025-08-04 08:55 | NUR ---
PATIENT MEDICATED PER EMAR. PATIENT SITTING UP IN HIS CHAIR WATCHING TV AND USING HIS CORNET. SN MIKO IN ROOM PASSING MEDICATIONS WITH THIS RN. PATIENT IS WITHOUT FURTHER NEEDS AT THIS TIME. CALL LIGHT AND PERSONAL BELONGINGS ARE WITHIN REACH.
[2025-08-04] MEDS ORDERED: METOPROLOL TARTRATE 50 MG TAB PO SCH (09:00)
--- NOTE | 2025-08-04 09:08 | NUR ---
PATIENT SITTING UP IN HIS CHAIR WATCHING TV. IV FLUSHED WITH 10 ML OF NS, DRESSING IS INTACT. IV IS SALINE LOCKED. PATIENT IS WITHOUT FURTHER NEEDS AT THIS TIME. CALL LIGHT AND PERSONAL BELONGINGS ARE WITHIN REACH.
[2025-08-04] MEDS ORDERED: SERTRALINE HCL 25 MG TAB PO SCH (09:56)
[2025-08-04] MEDS ORDERED: LOSARTAN POTASSIUM 25 MG TAB PO SCH (09:58)
--- NOTE | 2025-08-04 10:12 | NUR ---
PATIENT AMBULATED HALLWAYS WITH PT. FIRST LAP WITH FWW, SECOND LAP WITH CANE. 1000 VS AND I&O'S TAKEN BY [facility] STUDENT.
--- NOTE | 2025-08-04 10:30 | NUR ---
PATIENT MEDICATED PER EMAR. PATIENT IS SITTING UP IN HIS CHAIR WATCHING TV. BLINDS OPENED FOR PATIENT. PATIENT IS WITHOUT FURTHER NEEDS AT THIS TIME. ASSESSMENT COMPLETED. CALL LIGHT AND PERSONAL BELONGINGS ARE WITHIN REACH.
--- NOTE | 2025-08-04 11:24 | NUR ---
JENNIFER ESTRADA STOPPED BY FOR INFORMATION ON PATIENT. PATIENT WITH VERBAL PERMISSION TO GIVE INFORMATION TO PATIENT. [phone]
--- NOTE | 2025-08-04 12:25 | NUR ---
PATIENT SITTING UP IN HIS CHAIR TALKING ON THE PHONE, FINISHING LUNCH. PATIENT MEDICATED PER EMAR. PATIENT IS WITHOUT FURTHER NEEDS AT THIS TIME. CALL LIGHT AND PERSONAL BELONGINGS ARE WITHIN REACH.
--- NOTE | 2025-08-04 13:16 | NUR ---
HELPING NURSE INTO ROOM TO CLEAN UP ROOM. CORDS CLEANED UP, VITALS WERE TAKEN BY ANUP NURSE, PATIENT HAS COFFEE AT BEDSIDE AND HIS IS THAT HE IS USING. BLANKETS CLEANED UP AND ONE PUT OVER PATIENT. FAN ON AT BEDSIDE. SCDS ON WITH FEET UP IN CHAIR. DENIES ANY OTHER NEEDS AT THIS TIME.
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
--- NOTE | 2025-08-04 15:00 | NUR ---
Received a call back from Marissa, pt is now willing to go to a SNF. He does not was to go to [facility]. He would like to go to [facility]. I called Jennifer and she does have a bed open. He would need to admit tomorrow, otherwise, it will be Sunday due to . I called Dr. Botello and pt will not be med until Sunday. I updated Jennifer. Updated the charge nurse and Updated Bill. Chart faxed to [facility] by my cowork Evens.
--- NOTE | 2025-08-04 15:19 | NUR ---
SNF REFERRAL FAXED TO [facility]
--- NOTE | 2025-08-04 15:30 | NUR ---
PATIENT SITTING UP IN HIS CHAIR AFTER USING BATHROOM. PATIENT TALKING ON THE PHONE. PATIENT MEDICATED PER EMAR AND IS WITHOUT ANY NEEDS AT THIS TIME. CALL LIGHT AND PERSONAL BELONGINGS ARE WITHIN REACH.
--- NOTE | 2025-08-04 16:21 | NUR ---
Recieved a return call from Mahi at [facility]. Reference [id number]. She states case was not opened for Bill.
--- NOTE | 2025-08-04 17:14 | NUR ---
PATIENT MEDICATED PER EMAR. PATIENT SITTING UP IN HIS CHAIR AND EATING DINNER. PATIENT IS WITHOUT FURTHER NEEDS AT THIS TIME. CALL LIGHT AND PERSONAL BELONGINGS ARE WITHIN REACH.
--- NOTE | 2025-08-04 19:36 | NUR ---
VERBAL REPORT RECEIVED BY CAL PEDERSEN. PATIENT IS SITTING IN RECLINER, SCDS ON WITH LEGS ELEVATED. CPOX AT BEDSIDE. PATIENT DENIES ANY NEEDS AT THIS TIME. CALL LIGHT IN REACH. CHAIR ALARM ON.
--- NOTE | 2025-08-04 21:43 | NUR ---
ON 1LNC, CPOX AT BEDSIDE, SATS LOW 9'S. LUNGS W EXP WHEEZING T/O MORE DIM ON RIGHT SIDE THAN LEFT, IRREGULAR TACHY HR, TELE#[address]. DENIES CP OR SOB WITH EXERTION. LBM 08/04. SCDS IN PLACE, COOPERATIVE WITH ASSESSMETNS AND VITALS. IN CHAIR, LEGS ELEVATED
--- NOTE | 2025-08-04 23:29 | NUR ---
PATIENT IS AWAKE IN RECLINER AT THIS TIME WATCHING TV. SCDS IN PLACE. CPOX AT BEDSIDE. CHAIR ALARM ON FOR PATIENT SAFETY. CALL LIGHT IN REACH.
[2025-08-05] VITALS (10 sets, daily range): BP systolic 140–169; BP diastolic 67–82
--- NOTE | 2025-08-05 04:14 | NUR ---
PATIENT RESTING IN BED EYES CLOSED BREATHING EVEN AND UNLABORED. CPOP ON. CPOX AT BEDSIDE READING SPO2 94%, 66 BPM. CALL LIGHT IN REACH.
--- NOTE | 2025-08-05 04:18 | NUR ---
PATIENT AWAKE IN RECLINER AT THIS ITME, WATCHING TV. PATIENT IS ON 1L VIA NC. CPOX AT BEDSIDE READING SPO2 92%, 93 BPM. PATIENT DENIES ANY NEEDS AT THIS TIME. CALL LIGHT IN REACH. CHAIR ALARM ON FOR PATIENT SAFETY.
[2025-08-05 05:42] LABS: BASOPHILS 0.4 % (0.2-1.2); EOSINOPHILS 0 % (0.8-7.0); LYMPHOCYTES 23.4 % (21.8-53.1); MCH 27.2 PG (25.7-32.2); MCHC 32.3 g/dL (32.3-36.5); MCV 84.1 fL (79.0-92.2); MONOCYTES 10.9 % (5.3-12.2); NEUTROPHILS 63.1 % (34.0-67.9); RBC 4.34 M/uL (4.63-6.08)
--- NOTE | 2025-08-05 05:55 | NUR ---
PATIENT IS SITTING UP IN RECLINER AWAKE. SCDS IN PLACE, LEGS ELEVATED. CPOX AT BEDSIDE SPO2 90%, 97 BPM. ON 1L O2 VIA NC. CHAIR ALARM ON FOR PATIENT SAFETY. CALL LIGHT IN REACH.
[2025-08-05 06:07] LABS: ALT (SGPT) 45.0 U/L (14-59); AST (SGOT) 32.0 U/L (15-37); GLOMERULAR FILTRATION RATE,EST 25.0 mL/min (>60); PROTEIN, TOTAL 7.2 g/dL (6.4-8.2); UREA NITROGEN 65.0 mg/dL (7-18)
--- NOTE | 2025-08-05 07:14 | NUR ---
REPORT RECEIVED FROM SLAVA STEPHENS. PATIENT SITTING UP IN HIS CHAIR AND IS WITHOUT ANY NEEDS AT THIS TIME. CALL LIGHT AND PERSONAL BELONGINGS ARE WITHIN REACH. WHITE BOARD UPDATED.
--- NOTE | 2025-08-05 07:32 | NUR ---
Notified by staff pt is anxious and upset. He is stating we cannot make him go to a SNF. I let them know we are not making him do anything. He agreed last night, but if he wants to go home he can go home. This is his personal choice. Per Dr. Botello pt was not med ready yesterday and not today. As it is a Holiday weekend there will not be availability until Sunday. Bill and I have had multiple discussions if he wants help, he will need to work with the outside resources like [facility] or [facility]. He will have to follow through and stop getting mad and leaving when they are attempting to help him. It is his choice if he wants to return to his home without heat, running water, or a toilet. The hospital does not provide money for hotel rooms, rent, or to repair his RV.
--- NOTE | 2025-08-05 07:40 | NUR ---
PATIENT EXPRESSING TO THIS RN THAT HE IS "NOT GOING TO A FDC, I DON'T CARE WHAT ANYONE HAS TO SAY. WE'VE LIVED IN OUR [facility] FOR OVER A YEAR NOW, I CAN HANDLE ANOTHER MONTH. CAUSE AFTER AUGUST, WE ARE GOING TO [place]." CIARRA WITH CASE MANAGEMENT UPDATED AND WILL SEE PATIENT.
--- NOTE | 2025-08-05 08:00 | NUR ---
Spoke with Jeff. He plans on dc to home when medical ready. He denies needs.
--- NOTE | 2025-08-05 08:45 | NUR ---
PATIENT MEDICATED PER EMAR. PATIENT IS WITHOUT FURTHER NEEDS AT THIS TIME. CALL LIGHT AND PERSONAL BELONGINGS ARE WITHIN REACH.
[2025-08-05] MEDS ORDERED: FUROSEMIDE 40 MG/4 ML VIAL IV SCH (09:00)
[2025-08-05] MEDS ORDERED: METOPROLOL TARTRATE 100 MG TAB PO SCH (09:00)
--- NOTE | 2025-08-05 09:05 | NUR ---
PATIENT SITTING UP IN HIS CHAIR WATCHING TV. PATIENT ASSESSMENT COMPLETED. PATIENT DENIES ANY NEEDS AT THIS TIME. CALL LIGHT AND PERSONAL BELONGINGS ARE WITHIN REACH.
--- NOTE | 2025-08-05 10:30 | NUR ---
PATIENT SITTING UP IN HIS CHAIR AND DENIES ANY NEEDS AT THIS TIME. CALL LIGHT AND PERSONAL BELONGINGS ARE WITHIN REACH.
--- NOTE | 2025-08-05 13:00 | NUR ---
PATIENT SITTING UP IN HIS CHAIR WATCHING TV. PATIENT IS WITHOUT ANY NEEDS AT THIS TIME. CALL LIGHT AND PERSONAL BELONGINGS ARE WITHIN REACH.
--- NOTE | 2025-08-05 13:45 | NUR ---
TALK TO DR LOPEZ ON THE PHONE HE WOULD LIKE PATIENT TO BE SWITCHED BACK TO DUONEBS TID AND ALB PRN , HE FEELS LIKE HE IS MORE WHEEZY AND HAD GOOD RESULTS WITH THIS BEFORE . BROVANA AND IPRATRIUM DC AND REPLACED WITH DUONEB TIS AND ALB PRN .
[2025-08-05] MEDS ORDERED: ALBUTEROL/IPRATROPIUM 3 ML NEB INH SCH (14:00)
--- NOTE | 2025-08-05 14:16 | NUR ---
PATIENT SITTING UP IN HIS CHAIR ON HIS PHONE AND IS WITHOUT ANY NEEDS AT THIS TIME. CALL LIGHT AND PERSONAL BELONGINGS ARE WITHIN REACH.
--- NOTE | 2025-08-05 14:28 | NUR ---
Notified by [facility] and they will accept Bill on Sunday. Updated he has changed his mind. If he is still here on Sunday, I will review with him again.
--- NOTE | 2025-08-05 15:50 | NUR ---
PATIENT MEDICATED PER EMAR. PATIENT SITTING UP IN HIS CHAIR WATCHING TV. PATIENT IS WITHOUT ANY NEEDS AT THIS TIME. CALL LIGHT AND PERSONAL BELONGINGS ARE WITHIN REACH.
[2025-08-05] MEDS ORDERED: INSULIN LISPRO 100 UNIT/ML ML SUB-Q SCH (17:00)
--- NOTE | 2025-08-05 17:15 | NUR ---
PATIENT MEDICATED PER EMAR. PATIENT SITTING UP IN HIS CHAIR TALKING ON HIS PHONE AND IS WITHOUT ANY NEEDS AT THIS TIME. CALL LIGHT AND PERSONAL BELOGINGS ARE WITHIN REACH.
--- NOTE | 2025-08-05 18:14 | NUR ---
PATIENT IS IN HIS CHAIR AT THIS TIME, WANTS TO SLEEP THERE, CLAM DIGGER CHARTED VITALS AND I&O'S, GOT FRESH ICE WATER, EMPTIED URINAL, CALL LIGHT WITH IN REACH AND NOTHING ELSE NEEDED AT THIS TIME.
--- NOTE | 2025-08-05 18:30 | NUR ---
PATIENT SITTING UP IN HIS CHAIR AND IS WITHOUT ANY NEEDS AT THIS TIME. CALL LIGHT AND PERSONAL BELONGINGS ARE WITHIN REACH. PATIENT IS ON 2L NC WITH CPOX AT BEDSIDE.
--- NOTE | 2025-08-05 19:23 | NUR ---
GOT REPORT FROM DAY SHIFT NURSE.
--- NOTE | 2025-08-05 21:00 | NUR ---
CABLE PULLER OBTAINED VITALS, I&O, AND BLOOD SUGAR. PT STATES NO NEEDS AT THIS TIME. CALL LIGHT WITHIN REACH.
--- NOTE | 2025-08-05 21:37 | NUR ---
PATIENT UP IN HIS CHAIT WATCHING TV, SCDS ON LEGS AND ELEVATED. PATIENT HAS URINAL AND BELONGINGS ON TABLE NEXT TO HIM. DENIES ANY OTHER CARES AT THIS TIME.
--- NOTE | 2025-08-05 22:51 | NUR ---
RECHECK OF FINGERSTICK ON PATIENT. SUGAR NOW READINGS AT 391. DOCTOR CALLED WE WILL PUT IN A ONE TIME DOSE OF 15 UNITS OF LISPRO.
[2025-08-05] MEDS ORDERED: INSULIN LISPRO 100 UNIT/ML ML SUB-Q ONE (23:00)
[2025-08-06] VITALS (7 sets, daily range): BP systolic 135–145; BP diastolic 70–77
--- NOTE | 2025-08-06 01:00 | NUR ---
RECIEVED REPORT FROM SLAVA MARQUEZ. PT SITTING UP IN CHAIR, EYES CLOSED, UNLABORED BREATHING. CALL LIGHT WITHIN REACH, TV ON, LIGHTS OFF, CPOX ON AT BEDSIDE.
--- NOTE | 2025-08-06 03:37 | NUR ---
PT ASSISTED TO USE THE URINAL WITH SBA, PT BACK TO CHAIR, CALL LIGTH WITHIN REACH, PILLOWS REPOSITIONED. NO OTHER NEEDS REPORTED.
[2025-08-06 05:28] LABS: BASOPHILS 0.3 % (0.2-1.2); EOSINOPHILS 0 % (0.8-7.0); LYMPHOCYTES 19.9 % (21.8-53.1); MCH 27.1 PG (25.7-32.2); MCHC 31.9 g/dL (32.3-36.5); MCV 85.0 fL (79.0-92.2); MONOCYTES 12.2 % (5.3-12.2); NEUTROPHILS 65.1 % (34.0-67.9); RBC 4.20 M/uL (4.63-6.08)
[2025-08-06 05:45] LABS: ALT (SGPT) 39.0 U/L (14-59); AST (SGOT) 22.0 U/L (15-37); GLOMERULAR FILTRATION RATE,EST 22.0 mL/min (>60); PROTEIN, TOTAL 6.9 g/dL (6.4-8.2); UREA NITROGEN 78.0 mg/dL (7-18)
--- NOTE | 2025-08-06 06:15 | NUR ---
am labs show blood sugar 59, this rn completed bedside accucheck-result of 82. pt asymptomatic, states he feels good, a little hungry. primary rn samina and new car make ready mechanic jona aware. to give pt milk. insole taper in room collecting vs.
--- NOTE | 2025-08-06 06:18 | NUR ---
BLOCK SEALER OBTAINED VITALS AND I&O. PT STATES NO NEEDS AT THIS TIME. CALL LIGHT WITHIN REACH AND RNS IN ROOM.
[2025-08-06] MEDS ORDERED: INSULIN LISPRO 100 UNIT/ML ML SUB-Q SCH (08:00)
--- NOTE | 2025-08-06 08:10 | NUR ---
PATIENT IN CHAIR AT THIS TIME. YOUTH WORKER CHARTED HOURLY ROUNDS AND BLOOD SUAGR CHARTED. THIS YOUTH WORKER ASSISTED PATIENT WITH URINAL. CALL LIGHT WITHIN REACH, NO FURTHER NEEDS.
[2025-08-06] MEDS ORDERED: TORSEMIDE 5 MG TAB PO SCH (09:00)
--- NOTE | 2025-08-06 09:06 | NUR ---
pt up inchair, legs elevated, cpox at bedside O2 1LNC not chronic, eating, will complete assessment when done eating, cbg 118, no coverage needed
--- NOTE | 2025-08-06 10:14 | NUR ---
PT OFF FLUID RESTRICTION PER NEW ORDERS
--- NOTE | 2025-08-06 10:17 | NUR ---
PATIENT IN CHAIR AT THIS TIME. PUBLIC MESSAGE SERVICE SUPERVISOR CHARTED I&O'S, RN CHARTED VITALS. CALL LIGHT WITHIN REACH, NO FURTHER NEEDS.
--- NOTE | 2025-08-06 13:32 | NUR ---
Sitting up in bed leg elevated, O2 1LNC, CPOX at bedside, scds in place, no c/o pain. eyes closed
--- NOTE | 2025-08-06 15:57 | NUR ---
Resting, eyes close, O2 1LNC, cpox at bedside, legs elevated. scds in place. opens eyes took meds and went back to sleep
[2025-08-06] MEDS ORDERED: INSULIN LISPRO 100 UNIT/ML ML SUB-Q ONE ×2 (17:15→21:00)
--- NOTE | 2025-08-06 17:51 | NUR ---
PATIENT IN BED AT THIS TIME. SENIOR MANAGER MERGERS & ACQUISITIONS CHARTED VITALS AND I&O'S. CALL LIGHT WITHIN REACH, NO FURTHER NEEDS.
--- NOTE | 2025-08-06 19:15 | NUR ---
REPORT RECEIVED FROM SANDRITA PEDERSEN. BOARD UPDATED. pt RESTING IN THE CHAIR. SNACK PROVIDED. pt DENIES ANY OTHER NEEDS AT THIS TIME. CALL LIGHT WITHIN REACH.
--- NOTE | 2025-08-06 20:39 | NUR ---
CHASSIS WIRER OBTAINED VITALS AND I&O. PT STATES NO NEEDS AT THIS TIME. CALL LIGHT WITHIN REACH.
[2025-08-06] MEDS ORDERED: INSULIN GLARGINE-YFGN 100 UNIT/ML ML SUB-Q SCH (21:00)
--- NOTE | 2025-08-06 21:15 | NUR ---
ASSESSMENT AND VITAL SIGNS DONE. pt SITTING IN THE CHAIR. WASTEWATER TREATMENT PLANT ATTENDANT CHECKED BG WITH A RESULTS OF 434. THIS RN CALLED THE MD PER PROTOCOL FOR UPDATED ORDERS. MD PLACED ORDER AND THIS RN VERIFIED ORDER WITH REPEAT BACK METHOD. SS INSULIN AND LONG ACTING INSULIN ADMINISTERED. SCHEDULED MEDS ADMINISTERED. pt DENIES ANY OTHER NEEDS AT THIS TIME. CALL LIGHT WITHIN REACH.
--- NOTE | 2025-08-06 23:15 | NUR ---
pt RESTING IN THE CHAIR WITH EYES CLOSED. RR EVEN AND UNLABORED. CALL LIGHT WITHIN REACH.
--- NOTE | 2025-08-07 01:00 | NUR ---
pt CALLED FOR HELP WITH THE URINAL. pt SBA AT THE CHAIR SIDE. pt BACK IN THE CHAIR. pt DENIES ANY OTHER NEEDS AT THIS TIME. CALL LIGHT WITHIN REACH.
[2025-08-07 02:01] VITALS: BP 145/72
--- NOTE | 2025-08-07 02:30 | NUR ---
RUBBER PRESS TENDER IN TO CHECK pt BLOOD SUGAR, RESULTS OF 154. pt RESTING IN THE CHAIR. pt DENIES ANY OTHER NEEDS AT THIS TIME. CALL LIGHT WITHIN REACH.
[2025-08-07 05:31] LABS: BASOPHILS 0.4 % (0.2-1.2); EOSINOPHILS 0 % (0.8-7.0); LYMPHOCYTES 16.5 % (21.8-53.1); MCH 27.4 PG (25.7-32.2); MCHC 32.6 g/dL (32.3-36.5); MCV 83.9 fL (79.0-92.2); MONOCYTES 9.5 % (5.3-12.2); NEUTROPHILS 70.8 % (34.0-67.9); RBC 4.46 M/uL (4.63-6.08)
[2025-08-07 05:46] LABS: ALT (SGPT) 40.0 U/L (14-59); AST (SGOT) 21.0 U/L (15-37); GLOMERULAR FILTRATION RATE,EST 22.0 mL/min (>60); PROTEIN, TOTAL 7.4 g/dL (6.4-8.2); UREA NITROGEN 87.0 mg/dL (7-18)
[2025-08-07 06:12] VITALS: BP 160/72
--- NOTE | 2025-08-07 06:24 | NUR ---
ECONOMIC CONSULTANT OBTAINED VITALS AND I&O. PT STANDING WEIGHT OBTAINED AND DOCUMENTED. PT STATES NO FURTHER NEEDS AT THIS TIME. CALL LIGHT WITHIN REACH.
[2025-08-07 08:30] VITALS: BP 135/65
--- NOTE | 2025-08-07 09:09 | NUR ---
CLINIC IS CLOSED TODAY 08/07/2025. MESSAGE SENT TO SAMUEL, PEARL PELLER, TO SCHEDULE AN APPOINTMENT WITH DR. MUNGUIA FOR NEXT WEEKT TO RECHECK RENAL FUNCTION. DC INSTRUCTIONS UPDATED TO REFLECT IMPORTANCE OF FOLLOW-UP AND NEED FOR PATIENT TO CALL ON SUNDAY TO SCHEDULE AN APPOINTMENT. TAXI TICKETS FOR RIDE TO CLINIC AND RETURN HOME PROVIDED TO PATIENT.
--- NOTE | 2025-08-07 09:20 | NUR ---
INTO SEE PATIENT. PATIENT STATES HE HAS A RIDE UPON DISCHARGE. IMM LETTER COMPLETED.
[2025-08-07 10:00] VITALS: BP 124/66
[2025-08-07 10:08] VITALS: BP 124/66
[2025-08-07] MEDS ORDERED: LEVOFLOXACIN750 MG PO (10:39)
[2025-08-07] MEDS ORDERED: VENTOLIN HFA18 GM INH (10:40)
[2025-08-07] MEDS ORDERED: SYMBICORT 80-10.2 GM INH (10:40)
[2025-08-07] MEDS ORDERED: IPRAT-ALBUT 0.5-3 ML INH (10:40)
--- NOTE | 2025-08-07 10:40 | NUR ---
Patient awake, alert and oriented x3, no acute distress. Patient is on 1L oxygen vi nc, respirations non labored. Patient reports he slept well last night, no acute distress, pt denies shortness of breath. Dr. Botello updated patient regrding discharge home today, pt reports he is looking forward to leaving the hospital. No current needs at this time. Personal supplies and call light within reach.
[2025-08-07] MEDS ORDERED: TORSEMIDE5 MG PO (10:41)
[2025-08-07] MEDS ORDERED: ATORVASTATIN CA40 MG PO (10:41)
[2025-08-07] MEDS ORDERED: SERTRALINE HCL25 MG PO (10:42)
[2025-08-07] MEDS ORDERED: LEVOTHYROXINE75 MCG PO (10:42)
[2025-08-07] MEDS ORDERED: METOPROLOL SUCC50 MG PO (10:44)
[2025-08-07] MEDS ORDERED: POTASSIUM CHLO20 ME1 PO (10:50)
--- NOTE | 2025-08-07 11:26 | NUR ---
DICK CONNER HELPED MEASURE PT V.S. AND I&O'S. DICK CONNER UPDATED PT WHITEBOARD AND PROVIDED PT WITH ORAL CARE ALONG WITH AM CARE. PT WAS LEFT IN CHAIR, CALL LIGHT WITHIN REACH, NO FURTHER NEEDS.
[2025-08-07 13:31] VITALS: BP 140/65
== END 2025-08-07 13:35 | disposition home or self-care (01) | DRG 291 ==
LOC: ED 19:28 → MS 08-02 00:27
PROVIDERS: Internal Medicine; Student in an Organized Health Care Education/Training Program; ADMIT Family Medicine; ATTEND Family Medicine
DX: I13.0 Hypertensive heart and chronic kidney disease with heart failure and stage 1 through stage 4 chronic kidney disease, or unspecified chronic kidney disease (principal); J96.21 Acute and chronic respiratory failure with hypoxia; J44.1 Chronic obstructive pulmonary disease with (acute) exacerbation; N17.9 Acute kidney failure, unspecified; I50.30 Unspecified diastolic (congestive) heart failure; F41.9 Anxiety disorder, unspecified; E11.65 Type 2 diabetes mellitus with hyperglycemia; F17.210 Nicotine dependence, cigarettes, uncomplicated; N18.9 Chronic kidney disease, unspecified; E87.5 Hyperkalemia; E03.9 Hypothyroidism, unspecified; E78.5 Hyperlipidemia, unspecified; Z98.890 Other specified postprocedural states; Z83.3 Family history of diabetes mellitus; Z79.84 Long term (current) use of oral hypoglycemic drugs; Z79.51 Long term (current) use of inhaled steroids; Z86.73 Personal history of transient ischemic attack (TIA), and cerebral infarction without residual deficits; Z87.01 Personal history of pneumonia (recurrent); Z95.5 Presence of coronary angioplasty implant and graft; Z79.4 Long term (current) use of insulin; Z79.02 Long term (current) use of antithrombotics/antiplatelets; Z79.890 Hormone replacement therapy; Z79.899 Other long term (current) drug therapy
CPT/HCPCS: 36415; 71045; 80048; 80053; 81001; 82803; 83605; 83735; 83880; 84100; 84484; 85025; 87040; 93005; 93010; 94640; 94644; 94660; 94667; 94668; 94762; 94799; 96365; 96375; 97116; 97161; 97165; 97535; 99285-25; 99407; A9270; J0612; J0696; J1650; J1815; J1938; J2919; J7512; J7605